=== PATIENT | male | born 1940 | race Caucasian/White ===

== ENCOUNTER 2025-02-08 12:46 | Inpatient (IN) | payer MEDICARE ==
[2025-02-08] VITALS (11 sets, daily range): BP systolic 98–146; BP diastolic 52–89; PULSE 82–139; RESP 11–26; TEMP 97.5; O2SAT 91–99
[~2025-02-08] VITALS: Ht 175.3 cm; Wt 95.7 kg
[~2025-02-08 12:46] MED LIST: ASPI-1265 PO; ATEN-169 PO; CYCL-394 PO; FLAX100010 PO; MULT-785 PO; OMEG1CAP54 PO; OMEP-84 PO; PRAV40TA65 PO; TAMS-55 PO; TRAM-528 PO; rocuronium 10mg/ml inj IV ONE
[2025-02-08 13:34] LABS: BASOPHILS % (AUTO) 0 % (0-1); EOSINOPHILS % (AUTO) 0.1 % (0-6); HEMATOCRIT 45.1 % (42.0-52.0); HEMOGLOBIN 15.1 g/dl (14.0-17.9); LYMPHOCYTES # (AUTO) 0.4 X10'3 (1.1-4.8); LYMPHOCYTES % (AUTO) 10.3 % (21-51); MEAN CORPUSCULAR HEMOGLOBIN 32.9 PG (27.0-31.0); MEAN CORPUSCULAR HGB CONC 33.5 g/dL (33.0-36.5); MEAN CORPUSCULAR VOLUME 98.1 FL (78-98); MEAN PLATELET VOLUME 7.7 FL (7.4-10.4); MONOCYTES # (AUTO) 0.7 X10'3 (0-0.9); MONOCYTES % (AUTO) 18.7 % (2-12); NEUTROPHILS # (AUTO) 2.7 X10'3 (1.8-7.7); NEUTROPHILS % (AUTO) 70.9 % (42-75); PLATELET COUNT 285 X10'3 (140-440); RED BLOOD COUNT 4.59 X10'6 (4.70-6.10); WHITE BLOOD COUNT 3.8 X10'3 (4.5-11.0)
[2025-02-08 13:39] LABS: ALANINE AMINOTRANSFERASE 29 U/L (12-78); ALBUMIN 4.3 G/DL (3.4-5.0); ALBUMIN/GLOBULIN RATIO 1.3 (1.1-1.5); ALKALINE PHOSPHATASE 63 IU/L (46-116); AMYLASE 42 U/L (25-115); ANION GAP 10 (8-16); ASPARTATE AMINO TRANSFERASE 27 U/L (10-37); BLOOD UREA NITROGEN 57 MG/DL (7-18); BUN/CREATININE RATIO 28.5 (10.0-20.0); CALCIUM 9.2 MG/DL (8.5-10.1); CHLORIDE 96 MMOL/L (99-107); GLUCOSE 187 MG/DL (70-104); LIPASE 20 U/L (16-77); POTASSIUM 4.9 MMOL/L (3.5-5.1); SODIUM 134 MMOL/L (135-145); TOTAL CARBON DIOXIDE 27.8 MMOL/L (24-32); TOTAL PROTEIN 7.5 G/DL (6.4-8.2); eCRCL 27 ML/MIN; eGFR 32 ML/MIN
[2025-02-08 14:04] LABS: TOTAL CELLS COUNTED 100
[2025-02-08 14:05] LABS: LARGE PLATELETS FEW; PLATELET ESTIMATE NORMAL
--- NOTE | 2025-02-08 14:58 | RADIOLOGY REPORT ---
CLINICAL INFORMATION: Abdominal pain. TECHNIQUE: Axial CT images of the abdomen and pelvis were obtained without IV contrast. Coronal and s agittal reformatted images were obtained, reviewed, and stored. Evaluation of the parenchymal organs is limited without IV contrast. Evaluation of the bowel and mesentery is limited without oral contras t. All CT scans at this medical facility are performed using dose modulation techniques as appropriat e to a performed exam including the following: Automated exposure control was utilized; adjustment of the MA and/or KV according to patient size; and use of iterative reconstruction technique. CTDIvol = 20.42 mGy DLP = 1149.75 mGy-cm COMPARISON: None FINDINGS: Lung bases: Lung bases are clear. Liver: Grossly unremarkable in its noncontrast enhanced appearance. No abnormal density or focal lesi on identified. Biliary: Multiple calcified gallstones in the gallbladder. Spleen: Calcified granulomas in the spleen. Pancreas: Moderately atrophic pancreas. Adrenal glands: Unremarkable. No mass. Kidneys: Bilateral renal cysts, with the largest superior pole of the left kidney measuring up to 9.8 cm in greatest dimension and at the inferior pole of the right kidney measuring up to 7.4 cm. There is a smaller indeterminate lesion of the anterior aspect of the interpolar region of the right kidney measuring up to 1.2 cm (series 2, image 67), possibly a complex cyst, although solid lesion not excl uded. There is no hydronephrosis. No renal or ureteral calculi. Aorta/Vascular: Dense atherosclerotic calcification of the abdominal aorta and its main branches. Pos tsurgical changes of the infrarenal abdominal aorta with adjacent surgical clips. No aneurysm. Dense calcification and narrowing of the renal artery origins bilaterally. Retroperitoneum: No mass or lymphadenopathy. Bowel/mesentery: Dilated fluid-filled small bowel loops with nondilated distal small bowel loops susp ected small bowel obstruction with transition point likely in the right upper abdomen. Appendix is vi sualized and appears unremarkable. Scattered colonic diverticula without adjacent inflammatory pérez es to suggest diverticulitis. Pelvic organs: Grossly unremarkable. Bladder: Unremarkable. No mass. Abdominal wall: Moderate bilateral fat containing inguinal hernias, right slightly greater than left. Partially visualized bilateral hydroceles in the scrotum. Bones: No acute fracture or suspicious intraosseous lesion. IMPRESSION: 1. Findings consistent with small-bowel obstruction as described above. 2. Scattered colonic diverticula without adjacent inflammatory changes to suggest diverticulitis. 3. Bilateral renal cysts. Smaller right renal lesion is indeterminate, possibly a complex cyst, altho ugh solid lesion not excluded. Further evaluation with renal mass protocol CT or MRI could be obtaine d. 4. Moderate bilateral fat containing inguinal hernias. 5. Cholelithiasis. 6. Additional findings as described above.
--- NOTE | 2025-02-08 15:25 | Physician Documentation ---
History of Present Illness Chief Complaint: Abdominal Pain Stated Complaint: ABD PAIN Time Seen by MD: 14:32 OK to notify your PCP?: Yes Primary Medical Doctor: Robert Source: patient Mode of Arrival: POV Exam Limitations: no limitations HPI This is an 84-year-old male who comes in complaining of abdominal pain, distention with decreased appetite and no bowel movements since it was past Saturday which was two days ago. He denies chest pain or shortness of breath. He denies abdominal surgery in the past though he has had a AAA repair which he says it was about 25 years ago as well as a quadrant with the bypass. He has been nauseated without vomiting. He denies hematemesis. Medication Reconciliation Allergies: Coded Allergies: midazolam (Verified Allergy, Unknown, GOES CRAZY, 02/08/25) morphine (Verified Allergy, Unknown, 02/08/25) tetracycline (Verified Allergy, Unknown, 02/08/25) Scheduled Aspirin (Aspirin), 81 MG PO DAILY, (Reported) Atenolol (Tenormin), 50 MG PO DAILY, (Reported) Cyclobenzaprine HCl (Cyclobenzaprine HCl), 5 MG PO BID, (Reported) Flaxseed Oil (Flaxseed Oil), 1,200 PO DAILY, (Reported) Multivitamins* (Multivitamin*), 1 EACH PO DAILY, (Reported) [place]-3 Fatty Acids/Fish Oil (Fish Oil 1,000 Mg Capsule), 1 EACH PO DAILY, (Reported) Omeprazole* (Prilosec*), 20 MG PO BID, (Reported) Pravastatin Sodium* (Pravachol*), 40 MG PO DAILY, (Reported) Tamsulosin Hcl* (Flomax*), 0.4 MG PO DAILY, (Reported) Tramadol Hcl/Acetaminophen* (Ultracet*), 2 TAB PO Q6H, (Reported) Past Medical History Past Medical History: Coronary Artery Disease, High Cholesterol, Hypertension Other Past Surgical History: Bypass Alcohol Use: Occasionally Drug Use: none Lives with: Spouse Lives In: Home Occupation: employed Physical Exam Vital Signs: Temperature: 97.5, Source: Temporal, Heart Rate: 99, Respiratory Rate: 18, BP: 114/75, Pulse Oximetry: 97, Weight: 76.850 Pulse Oximetry Reflects: adequate oxygenation General Appearance: alert, WD/WN, mild distress (The patient appears uncomfortable.) EENT: PERRL/EOMI, normal ENT inspection Respiratory Lungs are clear to auscultation all martínez. No accessory muscle use or retractions. Cardiovascular No rubs, gallops or murmurs. No peripheral edema, cyanosis or clubbing of the extremities. Gastrointestinal To inspection of the abdomen positive distention. The abdomen is tender to palpation diffusely. No rigidity rebound or guarding. He has decreased bowel sounds x4 quadrants. Neurologic: oriented x4, corporate officer II-XII nml as tested, memory intact, oriented to time, oriented to person, oriented to place Skin: normal color, warm/dry Progress Results/Orders Reviewed/noted all lab results: Yes Results/Orders Orders - RONALD KEENAN * Gastric/Insert Tube* ONCE (02/08/25 15:20) Vital Signs 02/08/25 02/08/25 13:02 15:01 Temp 97.5 Pulse 99 Resp 18 B/P (MAP) 114/75 Pulse Ox 97 Laboratory Tests Test 02/08/25 13:11 White Blood Count 3.8 L Red Blood Count 4.59 L Hemoglobin 15.1 Hematocrit 45.1 Mean Corpuscular Volume 98.1 H Mean Corpuscular Hemoglobin 32.9 H Mean Corpuscular Hemoglobin Concent 33.5 Red Cell Distribution Width 13.0 Platelet Count 285 Mean Platelet Volume 7.7 Neutrophils (%) (Auto) 70.9 Lymphocytes (%) (Auto) 10.3 L Monocytes (%) (Auto) 18.7 H Eosinophils (%) (Auto) 0.1 Basophils (%) (Auto) 0 Neutrophils # (Auto) 2.7 Lymphocytes # (Auto) 0.4 L Monocytes # (Auto) 0.7 Eosinophils # (Auto) 0.0 Basophils # (Auto) 0.0 CBC Comment Differential Total Cells Counted 100 Neutrophils % (Manual) 42.0 Band Neutrophils % 31.0 H Lymphocytes % (Manual) 7.0 L Monocytes % (Manual) 18.0 H Eosinophils % (Manual) 1.0 Metamyelocytes % 1.0 H Platelet Estimate Normal Large Platelets Few Red Blood Cell Morphology Perf Basophilic Stippling Macrocytosis 1+ Sodium Level 134 L Potassium Level 4.9 Chloride Level 96 L Carbon Dioxide Level 27.8 Anion Gap 10 Blood Urea Nitrogen 57 H Creatinine 2.00 H Estimated GFR/1.73 m2 32 BUN/Creatinine Ratio 28.5 H Glucose Level 187 H Calcium Level 9.2 Total Bilirubin 1.0 Aspartate Amino Transf (AST/SGOT) 27 Alanine Aminotransferase (ALT/SGPT) 29 Alkaline Phosphatase 63 Total Protein 7.5 Albumin 4.3 Globulin 3.2 Albumin/Globulin Ratio 1.3 Amylase Level 42 Lipase 20 Chemistry Comments EKG/XRAY/CT/US/VASC/MRI CT : Interpreted By: self CT: abdomen/pelvis Impression CT abdomen and pelvis as interpreted by me: Multiple dilated loops of bowel consistent with small-bowel obstruction. Medical Decision Making Findings The CT scan did show a small bowel obstruction with a transition point. I ordered NG tube to be placed. I also ordered IV fluids, pain and nausea medication. I will place a call out to the on-call surgeon Dr. Dorman follow up by the hospitalist for admission. Additional Comments Small-bowel obstruction. Constipation. Acute surgical abdomen. Departure Disposition: ADMITTED INPATIENT Admitted to Inpatient Unit: yes, to hospitalist, to surgeon (Lakia) Admission Level of Care: Med/Surg with Tele Impression: Primary Impression: Small bowel obstruction Condition: Stable Referrals: NO PRIMARY CARE PROVIDER (PCP) Signature Scribe Signature: No scribe Attestation: The note accurately reflects work and decisions made by me.Ronald HENSLEY 02/08/25 16:02 RONALD KEENAN Feb 08, 2025 15:25
[2025-02-08] MEDS ORDERED: magnesium Cl slow-release 64mg tablet PO PRN (16:00)
[2025-02-08] MEDS ORDERED: potassium Cl 20 mEq SR tablet PO PRN ×2 (16:00)
[2025-02-08] MEDS ORDERED: magnesium sulf-water 2g/50mL 50 ML IV PRN (16:00)
[2025-02-08] MEDS ORDERED: ondansetron/PF 4mg/2ml inj IV PRN ×4 (16:00→21:05)
[2025-02-08] MEDS ORDERED: acetaminophen 325mg tablet PO PRN (16:00)
[2025-02-08] MEDS ORDERED: potassium Cl 40MEQ/1/2NS 520ml 520 ML IV PRN (16:00)
[2025-02-08] MEDS: ondansetron/PF 4mg/2ml inj IV ONE (16:05)
[2025-02-08] MEDS: HYDROmorphone 1 mg/ml syringe IV ONE (16:07)
[2025-02-08] MEDS: normal saline 1000ml 1,000 ML IV ONE (16:07)
--- NOTE | 2025-02-08 16:08 | RADIOLOGY REPORT ---
EXAM: DI ABDOMEN,SINGLE VIEW(KUB) HISTORY: NG Tube placement COMPARISON: None TECHNIQUE: Supine view of the abdomen FINDINGS: Nonobstructive bowel gas pattern noted. There is no evidence for pneumoperitoneum. No abnormal calcif ications noted. Enteric tube extending into the proximal stomach. Postoperative changes to the chest . IMPRESSION Normal positioning of the enteric tube.
--- NOTE | 2025-02-08 16:52 | HISTORY AND PHYSICAL-Residence ---
History & Physical Providers to CC Resident Creating Document: BARTOLO COPPOLA, RES ~ History of Present Illness Primary Medical Doctor: Dr. Shailesh Crespo. [facility] Reason for Admit\Complaint: Abdominal pain History of Present Illness Dr. Shailesh Crespo. [facility] Manager Solar: Dr. Singleton. Renewable Energy Broker: Dr. Leigh 84-year-old male patient with past medical history of hypertension, diabetes mellitus, dyslipidemia, hypothyroidism came to the hospital with chief complaint of abdominal pain. The patient mentioned that he started experiencing abdominal pain on Saturday morning approximately at 11:30 a.m. a.m. he describes the pain as a throbbing type, 8/10 in intensity, localized at the level of the epigastrium with some radiation to the lower abdomen. After his pain started he mentioned that he lost his appetite. On Saturday he experienced two episodes of vomiting, described as a black liquid, the patient endorses that he had not been eating or drinking anything because of the pain. His last bowel movement was on Saturday before the pain started, proximally at 7:00 a.m. Today he experienced another two episodes of vomiting, sweating and intensity of the pain increased being scaled as an 10/10 in intensity reason for which he decided to come to the hospital. The patient normally walks by himself at home, he does not use oxygen, independent with his daily activities. The patient currently denies chest pain, shortness of breath, palpitations, urinary symptoms. Allergies: Coded Allergies: morphine (Verified Allergy, Unknown, 02/13/25) PT TOLERATED HYDROMORPHONE 02/2025 tetracycline (Verified Allergy, Unknown, 02/08/25) Home Medications Home Medications Active Reported Tenormin* (Atenolol) 50 Mg Tablet 50 Mg PO DAILY Aspirin* (Aspirin) 81 Mg Tab.chew 81 Mg PO DAILY Ultracet* (Tramadol/Acetaminophen) 1 Each Tablet 2 Tab PO Q6H Flexeril* (Cyclobenzaprine HCl) 10 Mg Tablet 5 Mg PO BID Flomax* (Tamsulosin HCl) 0.4 Mg Cap.sr.24h 0.4 Mg PO DAILY Prilosec* (Omeprazole) 20 Mg Capsule.dr 20 Mg PO BID Multivitamin* (Multivitamins) 1 Each Tablet 1 Each PO DAILY Flaxseed Oil 1,000 Mg Capsule 1,200 PO DAILY Fish Oil 1,000 Mg Capsule ([place]-3 Fatty Acids/Fish Oil) 1 Each Capsule 1 Each PO DAILY Pravachol* (Pravastatin Sodium) 40 Mg Tablet 40 Mg PO DAILY Past Medical History Past Medical History Hypertension. Diabetes mellitus. Dyslipidemia. Hypothyroidism. Past Surgical History Surgical History Comment AAA surgery in 2002. The patient had a GI bleeding in 2005, as per patient due to medication use. Four way bypass surgery in 2002 two months after AAA surgery. Past Social History Smoking: Quit greater than 1 year (Quit smoking in 2002. He used to smoke one pack a day for at least 40 years.) Alcohol Use: Abuse (He endorses to drink one oz of trisha with Coke every day for 45 years.) Drug Use: None Lives with: Spouse Lives In: Home Occupation: employed (He works in [employer]) ROS All Other Systems: Reviewed and Negative Exam Vitals: Vital Signs Date Time Temp Pulse Resp B/P (MAP) Pulse Ox O2 Delivery O2 Flow Rate FiO2 02/08/25 16:07 16 02/08/25 15:01 02/08/25 13:02 97.5 99 97 Physical exam: General: Well alert, well oriented, not confused, not agitated, not in acute distress, well cooperated during the physical. HEENT: Conjunctive are pink, sclerae clear, no icterus, pupil is equal in both sides, reactive to light, no ear discharge, no pharyngeal erythema or an edema. NG tube on place, draining black fluid. Neck: Supple, no JVD, no lymphadenopathy and thyromegaly. Chest: Equal air entry on both lungs, no additional sounds no rhonchi no wheezing at the moment. Presence of scar in the midline of the chest and abdomen from previous surgery. Cardiovascular: S1-S2 regular sinus rhythm and, regular rate, presence of systolic murmur best heard in the 2nd right intercostal space. Abdomen: Distended, tenderness to palpation in the left lower abdomen, presence of hyperactive bowel sounds in the right side of the abdomen, absent bowel sounds in the left side of the abdomen, presence of scar in the midline of the chest and abdomen from previous surgery. Ventral abdominal hernia 3 x 3 cm, easily reducible. Extremities: No obvious deformities, no pitting edema bilaterally, capillary refill intact, peripheral pulsations are intact on both sides Central Nervous System: No focal neurological deficits, no motor or sensory weakness in all 4 extremities, could move all 4 extremities, 2+ deep tendon reflexes, negative Babinski. Musculoskeletal: No joint swelling, deformities, inflammations, and no scoliosis and back tenderness Skin: Warm and dry. Diagnostic Data Last Recorded Lab Results: 02/08/25 1311 02/08/25 1311 Advance Care Planning Advanced Care plannin - 30 Minutes (I spent a total of 17 minutes on reviewing various resuscitative measures/ACP with the patient at the time of admission. The patient has decided on a full code status.) Additional Plan Assessment and plan: 84-year-old male patient came to the hospital with chief complaint of abdominal pain. Abdominal pain: Small-bowel obstruction: The patient came to the hospital with chief complaint of abdominal pain, throbbing type, 8/10 in intensity radiation from epigastrium to lower abdomen. On physical exam distended abdomen is evidenced, high-pitched bowel sounds are noticed in the right side of the abdomen. Absent bowel sounds in the left side. Tenderness in the left lower abdomen. Abdominal x-ray: Normal positioning of the enteric tube. CT abdominal scan: Findings consistent with small-bowel obstruction as described above. Scattered colonic diverticula without adjacent inflammatory changes to suggest diverticulitis. Bilateral renal cysts. Smaller right renal lesion is indeterminate, possibly a complex cyst, although solid lesion not excluded. Further evaluation with renal mass protocol CT or MRI could be obtained. Moderate bilateral fat containing inguinal hernias. Cholelithiasis. The patient was placed on NG tube. Follow-up lactic acid. General surgeon, Dr. Hernandez was consulted, who is planning to perform surgery today. NS at 80 mL/hour. NPO. Dilaudid p.r.n. for pain control. Acute kidney injury on CKD likely secondary to renal tubular stasis: Unknown baseline creatinine. Creatinine 2.00, BUN/creatinine ratio 28.5. Follow-up urine lytes. NS at 80 mL/hour. Alcohol use disorder: The patient admits drinking 1 oz of trisha with coke everyday for at least 45 years. Alcohol withdrawal protocol in place. Folic acid 1 mg IV daily. Thiamine 200 mg IV t.i.d. Diazepam 5 mg IV q.4h as needed. Hypertension: Current blood pressure 114/75. We will continue lisinopril and atenolol after med reconciliation. Hyperglycemia: Diabetes mellitus: Glucose levels of 187. Follow-up hemoglobin A1c. Hypothyroidism: Follow-up TSH. We will continue his levothyroxine 25 mcg daily after med reconciliation. Dyslipidemia: Follow-up lipid panel. Code status: Full code DVT prophylaxis: SCDs Analgesia/sedation: Dilaudid Line/tube: PIV, NG tube. GI prophylaxis: Protonix IV. Nutrition: NPO PT: Yes Prognosis: Guarded Disposition: The patient will be admitted to ortho floor with telemetry. Plan for surgery. Bartolo Katz Internal Medicine Resident [facility] Date of Service: Feb 08, 2025 Billing Provider: JOHN CARDOSO MD Common Visit Codes: 71830-[id number] INP/OBS CARE (HIGH) Secondary Visit Codes: [id number] CARE PLAN 30 MINUTES BARTOLO COPPLOA, RES Feb 08, 2025 16:52 JOHN CARDOSO MD February 15, 2025 14:29
[2025-02-08] MEDS: normal saline 1000ml 1,000 ML IV SCH (16:57)
--- NOTE | 2025-02-08 17:00 | ELECTROCARDIOGRAPH REPORT ---
[facility] Test Date: 2025-02-08 Test Time: 16:57:33 Pat Name: VALERI REGALADO Department: EMERGENCY ROOM Room: PACU 5 Gender: M Grounds Caretaker: LUCRECIA : 1940 Requested By: RAFAL ALFARO Order Number: [id number] Reading MD: Dr. Nico Simon Measurements Intervals [place] Rate: 98 P: 57 DE: 145 QRS: 33 QRSD: 86 T: 62 QT: 361 QTc: 461 Interpretive Statements Sinus tachycardia Atrial premature complexes Minimal ST depression, inferior leads Electronically Signed On 02-08-2025 19:01:[address] Nico Simon Please click the below link to view image of tracing.
[2025-02-08] MEDS: ceFOXitin sod/dextrose 2g/50ml 50 ML IV ONE (17:15)
--- NOTE | 2025-02-08 17:15 | PROGRESS NOTE ---
Progress Note ID Providers to CC ~ Progress Note Progress Note: pt seen and examined-ct reviewed-findings consistent with sbo with peritonitis- pt needs ex lap-discussed procedure including risks/benefits/alternatives RAFAL ALFARO MD Feb 08, 2025 17:15
[2025-02-08] MEDS ORDERED: labetalol 20mg/4ml (5mg/ml) syringe IV PRN (17:20)
[2025-02-08] MEDS ORDERED: HYDROmorphone/PF 0.2 MG/ML SYRINGE IV PRN ×2 (17:20)
[2025-02-08] MEDS ORDERED: fentaNYL/PF 50MCG/1 ML 2ML syringe IV PRN (17:20)
[2025-02-08] MEDS ORDERED: hydrALAZINE 20mg/ml inj. IV PRN (17:20)
[2025-02-08] MEDS: ringers solution, lacted 1,000 ML IV SCH ×2 (17:20→20:05)
[2025-02-08] MEDS: folic acid 1mg/0.2ml inj IV SCH (17:25)
[2025-02-08] MEDS ORDERED: diazepam inj 5 MG/ML inj. IV PRN (17:25)
[2025-02-08] MEDS ORDERED: dexamethasone sod phosphate 4mg/ml inj. ONE (17:49)
[2025-02-08] MEDS ORDERED: LIDOcaine 2% (20mg/ml) 5ml vial ONE (17:49)
[2025-02-08] MEDS ORDERED: ondansetron/PF 4mg/2ml inj ONE (17:49)
[2025-02-08] MEDS ORDERED: propofol inj 20 ML IV ONE (17:49)
[2025-02-08] MEDS ORDERED: fentaNYL /PF 50mcg/ml 5ml ampule ONE (17:49)
[2025-02-08] MEDS ORDERED: rocuronium 10mg/ml inj IV ONE ×2 (17:50→19:33)
[2025-02-08] MEDS ORDERED: desflurane 240ml liquid inh. IH ONE (17:53)
--- NOTE | 2025-02-08 18:08 | CARDIOLOGY REPORT ---
APPROVED REPORT EXAM: Comprehensive 2D, Doppler, and color-flow Echocardiogram. Patient Location: ER FT A Blood Pressure: 114/75 mmHg Heart Rate: 97 bpm Rhythm: SINUS w/FREQUENT PVCs Indications PRE-OP SMALL BOWEL OBSTRUCTION CAD, CABG X 4 2004 AAA REPAIR 2002 HYPERTENSION DIABETES MELLITUS Senior Manager Quality Assurance: Claudette Thompson MD Previous echo: none available, after hours 2D Dimensions LA Diam5.9 cm IVSd 1.2 (0.7-1.1cm) LVDd 3.6 cm PWd 1.3 (0.7-1.1cm) IVSs 1.7 (0.8-1.2cm) LVDs 2.5 (2.5-4.0cm) PWs 1.3 (0.8-1.2cm) LVOT Diameter 2.01 (1.8-2.4cm) LVEF(%) 56.9 (>50%) Ao Asc Diam.3.74 cm FS (%) 29.2 % SV 30.9 ml CO 3.0 L/min M-Mode Dimensions Left Atrium(MM) 4.12 (2.5-4.0cm) Aortic Root 3.42 (2.2-3.7cm) Aortic Cusp Exc 1.98 (1.5-2.0cm) Biplane 2D LA Volumes LA ESV Index 18.64 mL/m2 Aortic Valve AoV Peak Kunal. 180.6 cm/s AoV VTI 30.5 cm AO Peak GR. 13.0 mmHg AO Mean GR. 7 mmHg LVOT VTI 18.48 cm LVOT Peak Kunal. 106.5 cm/s JUDITH(VTI)/BSA 1.93 cm2/m2 JUDITH (VTI) 1.93 cm2 Mitral Valve MV E Velocity 63.8 cm/s MV Peak Gr. 2 mmHg MV DECEL TIME 228 ms MV A Velocity 117.0 cm/s MV PHT 42 ms E/A Ratio 0.5 MVA (PHT) 5.24 cm2 MV VMax74.9 cm/s TDI Medial E' P. V 8.43 cm/s E/Medial E' 7.6 Pulmonary Vein S1 Velocity 68.4 cm/s D2 Velocity 32.6 cm/s PVa Dsffiivn77.9 cm/s PVa Vhxwider72 msec LEFT VENTRICLE Normal LV size and function. Mild concentric hypertrophy. OverallLVEF is 55-60%. RIGHT VENTRICLE RV size and function appear normal. ATRIA Left atrium is mildly dilated. AORTIC VALVE Trileaflet AV appears mildly sclerotic without stenosis. Trace insufficiency. MITRAL VALVE Mild MV annular calcification without stenosis. Trace regurgitation. TRICUSPID VALVE TV appears structurally normal with trace regurgitation. PULMONIC VALVE Normal PV without stenosis, physiologic insufficiency. GREAT VESSELS Aortic root is normal in size. The ascending aorta is upper limit normal in size. PERICARDIUM Normal pericardium. No effusion. Left pleural effusion is present. Other Information Study Quality: Adequate, no subcostals due to ?gas, hard belly. Conclusion OverallLVEF is 55-60%. Normal LV size and function. Mild concentric hypertrophy. RV size and function appear normal. Trileaflet AV appears mildly sclerotic without stenosis. Trace insufficiency. Mild MV annular calcification without stenosis. Trace regurgitation. TV appears structurally normal with trace regurgitation. Normal PV without stenosis, physiologic insufficiency. Normal pericardium. No effusion. Left pleural effusion is present.
[2025-02-08] MEDS ORDERED: albumin (Human) 5% 250ml 250 ML IV ONE (18:24)
[2025-02-08 18:28] LABS: OSMOLALITY 305 MOSM/K (280-300)
[2025-02-08 18:31] LABS: HEMOGLOBIN A1C 6.1 % (4.5-6.2)
[2025-02-08 18:39] LABS: CHOL/HDL RATIO 3.4 (0.00-4.99); CHOLESTEROL 188 MG/DL (0-200); HDL CHOLESTEROL 56 MG/DL (35-60); LDL CHOLESTEROL 105 MG/DL (50-100); TRIGLYCERIDES 168 MG/DL (20-135)
[2025-02-08 18:42] LABS: ETHANOL < 10 MG/DL (<10)
[2025-02-08] MEDS ORDERED: sugammadex 200mg/2ml injection IV ONE (19:06)
[2025-02-08] MEDS: vancomycin/NS 1 GM ADD-VANTAGE 250 ML X 1 DOSE IV ONE (19:20)
[2025-02-08] MEDS: piperacillin/tazobactam inj. 3.375 GM in NS 50ml IV ONE (19:25)
--- NOTE | 2025-02-08 20:00 | PROGRESS NOTE ---
Anesthesia - Line Placement Line Placement CVP: Internal Jugular (Right) Separate "Sticks": Ultrasound Guidance, Vasc Structure Identified, Patency Confirmed, Entry Observed by [place]. Sterile Protocol or Technique: Sterile Seldinger tech, Full Sterile Protocol Prep: Chloraprep Complications None XIOMARA AGUILERA MD Feb 08, 2025 20:00
--- NOTE | 2025-02-08 21:01 | OPERATIVE REPORT ---
Operative Report Providers to CC ~ Date of Procedure: Feb 08, 2025 Pre-Operative Diagnosis: sbo with peritonitis Post-Operative Diagnosis SAME as PRE-Op Procedure Performed ex lpa/mica/small bowel resection/closure enterotomy/appy Surgeon: reza Kinney none Anesthesiologist: Ha Tang Type of Anesthesia: General Findings: extensive adhesions/complete sbo Estimated Blood Loss: 250 ml Specimen Removed: small bowel/appy RAFAL ALFARO MD Feb 08, 2025 21:01
[2025-02-08] MEDS ORDERED: naloxone 0.4 mg/ml inj IV PRN (21:05)
[2025-02-08] MEDS: diazepam inj 5 MG/ML inj. IV ONE (21:45)
[2025-02-08 21:59] LABS: ABG BASE EXCESS -7.9 mmol/L (-2.0-3.0); ABG HCO3 17.9 mmol/L (21.0-28.0); ABG OXYGEN SATURATION 94.5 % (94.0-98.0); ABG PCO2 (T) 36.6 mmHg (35.0-48.0); ABG PH (T) 7.304 (7.350-7.450); ABG PO2 (T) 76.8 mmHg (83.0-108.0); ALLEN'S TEST Modified; FCOHb 0.6 % (0.5-1.5); FHHb 5.5 % (0.0-5.0); FLOW 10 L/min; FMetHb 0.2 % (0.0-1.5); FO2Hb 93.7 % (94.0-98.0); MODE Simple Mask; PATIENT TEMPERATURE 36.1; TOTAL HEMOGLOBIN 13.3 G/dl (13.5-17.5)
--- NOTE | 2025-02-08 22:01 | RADIOLOGY REPORT ---
CHEST RADIOGRAPH Indication: POST OP line placement Technique: Single frontal view of the chest was obtained COMPARISON: None FINDINGS: Lines and Tubes: Right IJ CVC noted with its tip projecting over SVC. NG tube extends below the diaph ragm the tip of which is not visualized on this study but is at least in the gastric body. Lungs: No abnormality demonstrated. Pleura: No pleural effusion. No pneumothorax. Cardiomediastinal contours: Unremarkable Evidence of sternotomy and CABG. IMPRESSION: No abnormality demonstrated.
[2025-02-08] MEDS: K and/or MAG REPLACEMENT MC SCH (22:05)
[2025-02-08] MEDS: fentaNYL/PF 50MCG/1 ML 2ML syringe IV PRN (22:15)
[2025-02-08] MEDS: potassium CL 20mEq in D5-1/2NS 1,000 ML IV SCH (22:38)
[2025-02-08] MEDS: HYDROmorphone/PF 0.2 MG/ML SYRINGE IV PRN (22:46)
[2025-02-08] MEDS: thiamine 100mg/ml 2ml inj. IV SCH (22:50)
[2025-02-08] MEDS: haloperidol lactate 5mg/ml inj IM PRN (23:08)
[2025-02-08] MEDS: HYDROmorphone inj. 0.5 MG/0.5 ML DISP.SYRIN IV PRN (23:25)
[2025-02-09] VITALS (31 sets, daily range): BP systolic 65–118; BP diastolic 43–64; PULSE 99–134; RESP 10–30; O2SAT 91–100
[2025-02-09 00:37] LABS: HEMATOCRIT 38.5 % (42.0-52.0); HEMOGLOBIN 12.9 g/dl (14.0-17.9); MEAN CORPUSCULAR HEMOGLOBIN 33.1 PG (27.0-31.0); MEAN CORPUSCULAR HGB CONC 33.4 g/dL (33.0-36.5); MEAN CORPUSCULAR VOLUME 99.2 FL (78-98); MEAN PLATELET VOLUME 7.5 FL (7.4-10.4); PLATELET COUNT 206 X10'3 (140-440); RED BLOOD COUNT 3.89 X10'6 (4.70-6.10); RED CELL DISTRIBUTION WIDTH 13.1 % (11.5-14.5); WHITE BLOOD COUNT 2.1 X10'3 (4.5-11.0)
[2025-02-09 00:48] LABS: INR 1.2 INR; PROTHROMBIN TIME 12.5 SECONDS (9.0-12.0)
[2025-02-09 00:51] LABS: ALANINE AMINOTRANSFERASE 16 U/L (12-78); ALBUMIN 2.3 G/DL (3.4-5.0); ALBUMIN/GLOBULIN RATIO 1.2 (1.1-1.5); ALKALINE PHOSPHATASE 46 IU/L (46-116); ANION GAP 13 (8-16); ASPARTATE AMINO TRANSFERASE 20 U/L (10-37); BILIRUBIN,TOTAL 0.9 MG/DL (0.1-1.0); BLOOD UREA NITROGEN 54 MG/DL (7-18); BUN/CREATININE RATIO 24.4 (10.0-20.0); CALCIUM 7.1 MG/DL (8.5-10.1); CHLORIDE 104 MMOL/L (99-107); CREATININE 2.21 MG/DL (0.60-1.10); GLUCOSE 271 MG/DL (70-104); MAGNESIUM 1.4 MG/DL (1.5-2.4); PHOSPHORUS 4.2 MG/DL (2.3-4.5); POTASSIUM 4.2 MMOL/L (3.5-5.1); SODIUM 135 MMOL/L (135-145); TOTAL CARBON DIOXIDE 18.5 MMOL/L (24-32); TOTAL PROTEIN 4.3 G/DL (6.4-8.2); eCRCL 24 ML/MIN; eGFR 28 ML/MIN
[2025-02-09 01:05] LABS: TOTAL CELLS COUNTED 100
[2025-02-09 01:07] LABS: PLATELET ESTIMATE NORMAL
[2025-02-09] MEDS: albumin (Human) 5% 250ml 250 ML IV ONE ×8 (02:33→06:42)
[2025-02-09] MEDS: HYDROmorphone inj. 0.5 MG/0.5 ML DISP.SYRIN IV PRN (03:10)
[2025-02-09] MEDS: piperacillin/tazo 3.375gm/50ml 50 ML IV SCH (03:42)
--- NOTE | 2025-02-09 03:43 | OPERATIVE REPORT ---
DATE OF SURGERY: 02/08/2025 DICTATING PHYSICIAN: Ion Hernandez MD PREOPERATIVE DIAGNOSIS: Small bowel obstruction with peritonitis. POSTOPERATIVE DIAGNOSIS: Small bowel obstruction with peritonitis. PROCEDURES: * Exploratory laparotomy. * Lysis of adhesions. * Polypoid resection. * Closure of enterotomy. * Appendectomy. SURGEON: Ion Hernandez MD MERCHANDISE PRESENTATION ASSOCIATE: None. ANESTHESIA: General/Dr. Tang. DRAINS: Markus x 1. INDICATIONS FOR OPERATION: An 84-year-old male with previous open abdominal aortic aneurysm repair and history of abdominal pain for 2 days, which has progressed. CAT scan revealed evidence of small bowel obstruction. The patient had peritonitis on exam, taken to surgery for laparotomy. INTRAOPERATIVE FINDINGS: The patient had extensive adhesions with multiple dilated loops of small bowel. The adhesions were the source of the obstruction. DESCRIPTION OF PROCEDURE: The patient was placed supine on the operating table. After induction of general anesthesia and placement of endotracheal tube, the abdomen was prepped and draped. Abdomen entered with midline incision. The patient had extensive adhesions, subsequently taken down from the ileocecal valve, to be determined ____. In the course of mobilization of the small bowel through the dense adhesions, enterotomies were made. One enterotomy was closed with a TA-30 given the small size. The second enterotomy required a small bowel resection with isoperistaltic anastomosis and enterotomy was closed with TA-90. Appendix was removed. There were extensive adhesions present and need for treatment with subsequent appendectomy. After mobilization of the bowel and closure of enterotomies, the abdomen was copiously irrigated with large amount of antibiotic containing solution. A #19 Markus drain was placed through a separate stab incision, directed to the pelvis and right gutter. The lap count was noted to be correct. Hemostasis was obtained. The rectal fascia was closed with running sutures of looped PDS. Skin was closed with clips. Pascual placed, dressing applied. The patient was transferred to the ICU in critical condition. Ion Hernandez MD TID: [id number] RECEIPT: [id number] SADA/FLORES/LOUIE
--- NOTE | 2025-02-09 04:25 | CONSULTATION ---
DATE OF CONSULTATION: 02/08/2025 DICTATING PHYSICIAN: Ion Hernandez MD REASON FOR CONSULTATION: Evaluation of small bowel obstruction. HISTORY OF PRESENT ILLNESS: The patient is an 84-year-old male with repair of an aortic aneurysm approximately 20 years ago via an open approach, developed severe abdominal pain two days ago, pain persisted. The patient went to the ER for evaluation. CAT scan revealed evidence of some small bowel obstruction. The patient was found to have a profound bandemia. Surgical evaluation is now requested. On further questioning, the patient denies any additional abdominal surgery besides his aortic aneurysm repair. He has a history of coronary artery disease. No history of peripheral vascular disease per his report. PAST MEDICAL HISTORY: Significant for hypertension, coronary artery disease, and hyperlipidemia. PAST SURGICAL HISTORY: CABG, GI bleed procedure, aortic aneurysm repair . HOME MEDICATIONS: Aspirin, atenolol, cyclobenzaprine, Prilosec, pravastatin, tamsulosin, tramadol. ALLERGIES: MORPHINE, MIDAZOLAM, TETRACYCLINE. SOCIAL HISTORY: Occasional alcohol use. REVIEW OF SYSTEMS: See H and P. PHYSICAL EXAMINATION: GENERAL: This is a well-nourished, elderly male, in minimal distress. VITAL SIGNS: Unremarkable. HEART: Regular rhythm. LUNGS: Clear to auscultation. ABDOMEN: Distended with some diffuse tenderness consistent with peritonitis. EXTREMITIES: Unremarkable. NEUROLOGIC: Nonfocal. LABORATORY DATA: WBC of 3.8, hematocrit is 45, platelet count 285. There are 31 bands in the differential. Chemistries revealed BUN and creatinine of 7 and 2, CO2 is 27. LFTs unremarkable. IMAGING STUDIES: CT abdomen reveals a small bowel obstruction , decompressed small bowel distally, fat-containing inguinal hernias, but no bowel present. IMPRESSION: * Small bowel obstruction with peritonitis and profound bandemia. * Status post aortic aneurysm repair. * Status post CABG. * Hypertension. RECOMMENDATIONS: * Hydrate. * Check echocardiogram. * Laparotomy. Ion Hernandez MD TID: [id number] RECEIPT: [id number] KB/ROWENA/AMA
[2025-02-09] MEDS: magnesium sulf-water 4G/100mL 100 ML IV PRN (06:52)
[2025-02-09] MEDS: NORepinephrine 8mg/ 250ml NS 250 ML IV SCH (07:30)
[2025-02-09] MEDS: vasopressin inj. 40 UNIT in normal saline 50ml IV soln 38 ML IV SCH (07:33)
[2025-02-09] MEDS: NORepinephrine 8mg/ 250ml NS 250 ML IV ONE (07:37)
--- NOTE | 2025-02-09 09:40 | RADIOLOGY REPORT ---
CHEST RADIOGRAPH Indication: sob Technique: Single frontal view of the chest was obtained Comparison: DI CHEST,SINGLE VIEW on DOS: 02/08/25 FINDINGS: Lines and Tubes: Nasogastric tube tube tip in the stomach. Right central venous catheter tip in the SVC. Lungs: No focal consolidation. Pleura: No effusion. No pneumothorax. Cardiomediastinal contours: Cardiomegaly. Bones: Median sternotomy. IMPRESSION: Cardiomegaly with mild CHF.
[2025-02-09] MEDS: SODIUM BICARBONATE 150MEQ IN D5W 1,000 ML IV SCH (11:17)
[2025-02-09] MEDS ORDERED: PRAV40TA3 PO (11:33)
[2025-02-09] MEDS ORDERED: PANT40TA54 PO (11:33)
[2025-02-09] MEDS ORDERED: METF-1203 PO (11:33)
[2025-02-09] MEDS ORDERED: LEVO25TA7 PO (11:33)
[2025-02-09] MEDS ORDERED: ATEN50TA8 PO (11:33)
[2025-02-09] MEDS ORDERED: LISI2.5T14 PO (11:33)
[2025-02-09] MEDS ORDERED: CYCL-920 PO (11:34)
[2025-02-09] MEDS ORDERED: magnesium sulf-water 4G/100mL 100 ML IV PRN (11:55)
[2025-02-09] MEDS ORDERED: Duosol 4k/NO Calcium 5,000 ML HE SCH (11:55)
[2025-02-09] MEDS ORDERED: potassium Cl 40MEQ/270ML bag 270 ML IV PRN (11:55)
[2025-02-09] MEDS ORDERED: calcium chloride inj. 1,000 MG in normal saline 100ml IV soln 100 ML IV PRN (11:55)
[2025-02-09] MEDS: BICARB DIALYSIS 4K/3 Ca2+sol 5,000 ML HE SCH (11:55)
[2025-02-09] MEDS: insulin regular, human U-100 10ml vial - multi-dose SQ SCH (13:47)
--- NOTE | 2025-02-09 16:10 | PROGRESS NOTE ---
Progress Note Dictate Providers to CC ~ Progress Note: Referring Physician: General surgeon and hospitalist Reason for Consultation: evaluate REMEDIOS Chief Complaint: Abdominal pain History of Present Illness: Admitted to the hospital for abdominal pain, found to have adhesions and small bowel obstruction, underwent laparotomy yesterday, treating intra-abdominal infection and peritonitis, partial small bowel resection was performed, now worsening REMEDIOS with oliguria over the past 24 hours, we have been asked to evaluate REMEDIOS and make specific recommendations for renal replacement therapy if needed. Review of Systems: Unable to assess secondary to critical illness Antibiotic Ordered?: Yes Objective Vitals Vital Signs Date Time Temp Pulse Resp B/P (MAP) Pulse Ox O2 Delivery O2 Flow Rate FiO2 02/09/25 15:41 111/56 02/09/25 15:00 99.9 103 19 93 Nasal Cannula 5.0 General: Ill appearing, appears comfortable, Neck: Supple, without JVD Heart: Regular rate and rhythm, no murmur Lungs: Course lung sounds bilateral Abdomen: Bowel sounds absent, no tenderness, organomegaly, masses, or hernia Extremities: No cyanosis, 1+ edema, peripheral pulses intact Neurologic: Sensation to touch, normal. DTRs normal moves all extremities spontaneously. Lab Results: 02/09/25 0015 02/09/25 0015 Coagulation Studies Laboratory Tests Test 02/09/25 00:15 Prothrombin Time 12.5 SECONDS (9.0-12.0) H INR International Normalized Ratio 1.2 INR Coagulation Comments Other Results I & O 02/09/25 07:00 Intake Total 0 ml Output Total 305 ml Balance -305 ml Intake Oral 0 ml Output Urine Total 250 ml Drainage Total 55 ml Problem\Assessment\Plan Problems/Diagnosis: (1) REMEDIOS (acute kidney injury) Assessment & Plan: Acute Kidney Injury (REMEDIOS): He demonstrates REMEDIOS, likely multifactorial due to perioperative factors, hypovolemia, sepsis, and vasopressor use. Creatinine has risen from 2.0 to 2.21 mg/dL, with significant oliguria (220 mL urine output in 24 hours). Elevated lactic acid (2.3 mmol/L) likely tissue hypoperfusion. Fluid Management: Carefully balance IV fluid administration to optimize renal perfusion while avoiding fluid overload, especially given the use of vasopressors. Continue isotonic fluids (e.g., 0.9% NaCl) with frequent reassessment of volume status, hemodynamics, and urine output. Renal Monitoring and Management: Follow KDIGO guidelines for REMEDIOS management. Monitor renal function (BUN, creatinine) and electrolytes closely. Evaluate for potential initiation of renal replacement therapy (UPHOLSTERY RESTORER) daily, start if there is worsening renal function, refractory metabolic acidosis, hyperkalemia, or fluid overload. (2) Leukopenia Assessment & Plan: Leukopenia with Bandemia: WBC count of 2.1 with 31% neutrophil bands indicates a stress response, possible sepsis, or bone marrow suppression. Hematological Monitoring: Repeat CBC to monitor WBC trends and assess ongoing infection or bone marrow response. Consider additional evaluation for causes of leukopenia if no improvement is noted. (3) Hemodynamic instability Assessment & Plan: Hemodynamic Instability: He is is on vasopressors (vasopressin, norepinephrine), indicating hemodynamic instability, likely contributing to renal hypoperfusion and further complicating renal recovery. Vasopressor Management: Work with the critical care team to optimize vasopressor support, aiming to improve mean arterial pressure (MAP) and renal perfusion. Adjust vasopressor dosing as necessary based on hemodynamic monitoring and fluid status. (4) Infection Assessment & Plan: Infection and Sepsis Management: Continue current antibiotic regimen with Zosyn, ensuring appropriate coverage for potential intra-abdominal infections. Monitor for clinical improvement and adjust antibiotics based on culture results and sensitivity patterns. JASON MILLIGAN III DO Feb 09, 2025 16:10
[2025-02-09] MEDS: acetaminophen 1,000mg/100ml IV 100 ML IV PRN (16:47)
--- NOTE | 2025-02-09 17:32 | PROGRESS NOTE- Residence ---
Progress Note - Resident Providers to CC Resident Creating Document: BARTOLO COPPOLA, REEMA ~ Antibiotic Timeout Antibiotic Ordered?: Yes Subjective The patient has been evaluated at the bedside. The patient is currently on nasal cannula 5 L. Somnolent, reports mild pain at the level of the abdomen. Objective Vital Signs Date Time Temp Pulse Resp B/P (MAP) Pulse Ox O2 Delivery O2 Flow Rate FiO2 02/09/25 16:00 100.6 106 10 102/53 (69) 93 Nasal Cannula 5.0 Physical exam: General: The patient recently underwent surgery, currently somnolent. On 5 L of oxygen nasal cannula. HEENT: Conjunctive are pink, sclerae clear, no icterus, pupil is equal in both sides, reactive to light, no ear discharge, no pharyngeal erythema or an edema. NG tube on place, draining black fluid. Neck: Supple, no JVD, no lymphadenopathy and thyromegaly. Chest: Equal air entry on both lungs, no additional sounds no rhonchi no wheezing at the moment. Presence of scar in the midline of the chest and abdomen from previous surgery. Cardiovascular: S1-S2 regular sinus rhythm and, regular rate, presence of systolic murmur best heard in the 2nd right intercostal space. Abdomen: Distended, presence of clean dressing and drain in the level of the lower abdomen. Extremities: No obvious deformities, no pitting edema bilaterally, capillary refill intact, peripheral pulsations are intact on both sides, currently with Bowen catheter. Central Nervous System: No focal neurological deficits, no motor or sensory weakness in all 4 extremities, could move all 4 extremities, 2+ deep tendon reflexes, negative Babinski. Musculoskeletal: No joint swelling, deformities, inflammations, and no scoliosis and back tenderness Skin: Warm and dry. Result Diagram: 02/09/25 0015 02/09/25 0015 Coagulation Studies Laboratory Tests Test 02/09/25 00:15 Prothrombin Time 12.5 SECONDS (9.0-12.0) H INR International Normalized Ratio 1.2 INR Coagulation Comments Assessment Assessment 84-year-old male patient came to the hospital with chief complaint of abdominal pain. Plan Plan Abdominal pain: Septic shock likely secondary to small-bowel obstruction with peritonitis: POA: S/p exploratory laparotomy, lysis of adhesions, appendectomy, polypoid resection, closure of enterotomy: POD: 0 The patient came to the hospital with chief complaint of abdominal pain, throbbing type, 8/10 in intensity radiation from epigastrium to lower abdomen. On physical exam distended abdomen is evidenced, high-pitched bowel sounds are noticed in the right side of the abdomen. Absent bowel sounds in the left side. Tenderness in the left lower abdomen. Abdominal x-ray: Normal positioning of the enteric tube. CT abdominal scan: Findings consistent with small-bowel obstruction as described above. Scattered colonic diverticula without adjacent inflammatory changes to suggest diverticulitis. Bilateral renal cysts. Smaller right renal lesion is indeterminate, possibly a complex cyst, although solid lesion not excluded. Further evaluation with renal mass protocol CT or MRI could be obtained. Moderate bilateral fat containing inguinal hernias. Cholelithiasis. Currently with NG tube, TANA drain, NPO. Management as per Dr. Hernandez. Currently on two vasopressors, norepinephrine and vasopressin. On Zosyn IV t.i.d. NPO. Dilaudid p.r.n. for pain control. Acute kidney injury on CKD likely secondary to renal tubular stasis: Suspected ATN, oliguria: Baseline creatinine 1.5, creatinine trending up. Creatinine 2.00, BUN/creatinine ratio 28.5. Nephrology Dr. Padilla consulted. reommended to continue bicarbonate drip for another 24 hours and if no progress than possible CRRT from tomorrow Continue bicarb 150 mEq in D5W at 75 cc/hour Alcohol use disorder: The patient admits drinking 1 oz of trisha with coke everyday for at least 45 years. Alcohol withdrawal protocol in place. Folic acid 1 mg IV daily. Thiamine 200 mg IV t.i.d. Diazepam 5 mg IV q.4h as needed. Hypertension: Current blood pressure 114/75. Currently with hypotension. With two vasopressors, norepinephrine and vasopressin. Hyperglycemia: Diabetes mellitus: Glucose levels of 187. Hemoglobin A1c 6.1. On Humulin sliding scale. Hypothyroidism: Follow-up TSH. We will continue his levothyroxine 25 mcg daily after med reconciliation. Dyslipidemia: Triglycerides 168, cholesterol 188, LDL 105, HDL 56 Code status: Full code DVT prophylaxis: SCDs Analgesia/sedation: Dilaudid Line/tube: PIV, NG tube. GI prophylaxis: Protonix IV. Nutrition: NPO PT: Yes Prognosis: Guarded Critical care time 35 minutes. Disposition: We will assume care after the patient is downgraded from ICU. Continue management as per Dr. Hernandez. Bartolo Katz Internal Medicine Resident [facility] Date of Service: Feb 09, 2025 Billing Provider: JOHN CARDOSO MD Common Visit Codes: [id number] CARE 30-74 MIN BARTOLO COPPOLA, RES Feb 09, 2025 17:32 JOHN CARDOSO MD February 15, 2025 14:30
--- NOTE | 2025-02-09 18:04 | CONSULTATION REPORT - RESIDENT ---
Consult Providers to CC Resident Creating Document: AXEL KING RES CC: EUGENIO BROWN MD History of Present Illness Primary Medical Doctor: Dr. Linares Reason for Admit\Complaint: SBO History of Present Illness 84-year-old patient admitted on 02/08, with a PMH of HTN, T2 dm, HDL, hypothyroidism for abdominal pain, nausea and vomitings. He was diagnosed with small-bowel obstruction. He was taken to the OR and had undergone exploratory laparotomy, lysis of adhesions, appendectomy, polypoid resection, closure of enterotomy on 02/08. Later he was transferred to the ICU, his blood pressures has been low and he was started on two vasopressors. He is on oxygen 2 L/min. ICU team is consulted for further management Patient currently is receiving Dilaudid as needed for abdominal pain. He denies any complaints except for intermittent abdominal pain. Has not passed flatus yet Allergies: Coded Allergies: midazolam (Verified Allergy, Unknown, GOES CRAZY, 02/08/25) morphine (Verified Allergy, Unknown, 02/08/25) tetracycline (Verified Allergy, Unknown, 02/08/25) Home Medications Home Medications Active Reported Cyclobenzaprine HCl 5 Mg Tablet 1 Tab PO HS PRN Levothyroxine Sodium 25 Mcg Tablet 1 Tab PO DAILY Pantoprazole Sodium 40 Mg Tablet.dr 1 Tab PO DAILY Pravastatin Sodium 40 Mg Tablet 1 Tab PO DAILY Atenolol 50 Mg Tablet 1 Tab PO DAILY Metformin HCl 500 Mg Tablet 1 Tab PO DAILY Lisinopril 2.5 Mg Tablet 1 Tab PO DAILY Past Medical History Past Medical History Hypertension. Diabetes mellitus. Dyslipidemia. Hypothyroidism. CAD status post CABG Past Surgical History Surgical History Comment AAA surgery in [address]. [address] bypass surgery in 2002 two months after AAA surgery. GI bleed procedure Past Social History Social History Comment With smoking in 2002, history of 40 pack years, drinks one dose of Tia with Coke every day. Denies illicit drug use, lives with his ROS ROS ROS negative except for pertinent positives mentioned in HPI Exam Vitals: Vital Signs Date Time Temp Pulse Resp B/P (MAP) Pulse Ox O2 Delivery O2 Flow Rate FiO2 02/09/25 17:00 100.6 108 30 106/58 (74) 93 Nasal Cannula 6.0 General: General: Elderly male, on oxygen 2 L/min, AAO x4, but drowsy, not in apparent distress Head: Normocephalic with an atraumatic Eyes: Pupils- 3mm, reacting to light, conjunctiva- anicteric Nose and throat: No polyps, septum- normal, no mucosal ulcers Neck: Supple, no lymphadenopathy, no carotid bruit Respiratory: No use of accessory muscles of respiration, Bilateral good air entry Cardiac: S1-S2 heard, rythm regular, no gallop/murmur Abdomen: Distended, left side TANA drain present, dressing done over the abdomen, bowel sounds not heard Extremities: no clubbing, no pedal edema, no deformities, peripheral pulses- 2+ Skin: finger tips-bluish Neuro: No focal deficit, gross cranial nerve exam- normal Diagnostic Data Last Recorded Lab Results: 02/09/251402/09/2514 Diagnostic Data: Laboratory Tests Test 02/09/25 00:15 Prothrombin Time 12.5 SECONDS (9.0-12.0) H INR International Normalized Ratio 1.2 INR Coagulation Comments Additional Plan 84-year-old patient admitted on 02/08, with a PMH of HTN, T2 dm, HDL, hypothyroidism for abdominal pain, nausea and vomitings. He was diagnosed with small-bowel obstruction. He was taken to the OR and had undergone exploratory laparotomy, lysis of adhesions, appendectomy, polypoid resection, closure of enterotomy on 02/08. Later he was transferred to the ICU, his blood pressures has been low and he was started on two vasopressors. He is on oxygen 2 L/min. ICU team is consulted for further management GI SBO with peritonitis-secondary to adhesions s/p exploratory laparotomy, lysis of adhesions, appendectomy, polypoid resection, closure of enterotomy on 02/08 -currently NPO -has a TANA drain -management as per surgeon Dr. Hernandez ID Sepsis-POA Likely secondary to peritonitis Suspect GI source WBC 2.1, with 33% bandemia Blood Cultures x2 NGTD Procalcitonin 150 Continue Zosyn 3.375 q.8h Cardiovascular Shock likely suspect septic shock -currently on Levophed 0.04, and vasopressin 0.04 -monitor to maintain map above 65 Renal REMEDIOS on CKD Suspect ATN, oliguria Metabolic acidosis -baseline creatinine 1.5, creatinine going up to 2.2 -nephrology Dr. Padilla consulted. reommended to continue bicarbonate drip for another 24 hours and if no progress than possible CRRT from tomorrow -continue bicarb 150 mEq in D5W at 75 cc/hour Endocrine Type 2 DM with A1c of 6.1 Hypothyroid Monitor blood glucose to maintain less than 200 Humulin as needed Follow up on TSH Respiratory Tachypnea likely secondary to metabolic acidosis Currently on oxygen 2 L/min If mental status is worsening, patient might probably go towards intubation HOB 30 and aspiration precaution Heme-Onc Leukopenia Macrocytic anemia -suspect leukopenia secondary to sepsis -suspect macrocytic anemia secondary to alcohol intake -monitor CBC tried to place art line but was unscuccessful, Dr. Hernandez consulted anaesthesia for art line placement Code Status: Full code Analgesia/sedation: Dilaudid Line/tube: Right IJ central line GI prophylaxis: Protonix DVT prophylaxis: Heparin Nutrition: NPO PT/OT/SP: Yes Prognosis: Guarded Disposition: Continue care in ICU Axel King, ICU PGY-2 resident Patient is seen and evaluated during morning rounds, case discussed at morning conference and then during multidisciplinary rounds. Remains critical. I agree with the above assessment and treatment plan. Date of Service: Feb 09, 2025 Billing Provider: EUGENIO BROWN MD, HARIVARSHA, RES Feb 09, 2025 18:04 EUGENIO BROWN MD February 13, 2025 10:19
--- NOTE | 2025-02-09 18:10 | PROGRESS NOTE ---
Progress Note ID Providers to CC ~ Progress Note Progress Note: AROUSABLE/VS WITH LEVO/VASO/ABD-DISTENDED/LABS NOTED A/P 1. S/P EX LAP WITH SARAH-REMAINS SEPTIC/SUPPORTIVE CARE RAFAL ALFARO MD Feb 09, 2025 18:10
[2025-02-09] MEDS: albumin (human) 25% 100 ML IV solution IV ONE (19:29)
[2025-02-09 20:03] LABS: OXYGEN SATURATION (MIXED VEN) 75.9 % (60-80); PO2 MIXED VENOUS (TEMP COR) 43.4 mmHg (35-46)
[2025-02-09] MEDS: heparin, porcine 5000 units/ml vial SQ SCH (20:10)
[2025-02-09 20:18] LABS: ABG BASE EXCESS -5.6 mmol/L (-2.0-3.0); ABG HCO3 21.3 mmol/L (21.0-28.0); ABG OXYGEN SATURATION 94.4 % (94.0-98.0); ABG PO2 (T) 79.5 mmHg (83.0-108.0); ALLEN'S TEST Modified; FCOHb 0.9 % (0.5-1.5); FHHb 5.5 % (0.0-5.0); FMetHb 0.1 % (0.0-1.5); FO2Hb 93.5 % (94.0-98.0); MODE NC; PATIENT TEMPERATURE 37.7; TOTAL HEMOGLOBIN 11.6 G/dl (13.5-17.5)
[2025-02-10] VITALS (32 sets, daily range): BP systolic 85–145; BP diastolic 47–64; PULSE 89–108; RESP 16–33; O2SAT 88–97
[2025-02-10 02:59] LABS: BASOPHILS % (AUTO) 0.1 % (0-1); EOSINOPHILS % (AUTO) 0.1 % (0-6); HEMATOCRIT 33.4 % (42.0-52.0); HEMOGLOBIN 11.3 g/dl (14.0-17.9); LYMPHOCYTES # (AUTO) 0.2 X10'3 (1.1-4.8); LYMPHOCYTES % (AUTO) 2.3 % (21-51); MEAN CORPUSCULAR HEMOGLOBIN 33.2 PG (27.0-31.0); MEAN CORPUSCULAR HGB CONC 33.7 g/dL (33.0-36.5); MEAN CORPUSCULAR VOLUME 98.6 FL (78-98); MEAN PLATELET VOLUME 8.2 FL (7.4-10.4); MONOCYTES # (AUTO) 0.5 X10'3 (0-0.9); MONOCYTES % (AUTO) 5.8 % (2-12); NEUTROPHILS # (AUTO) 7.6 X10'3 (1.8-7.7); NEUTROPHILS % (AUTO) 91.7 % (42-75); PLATELET COUNT 112 X10'3 (140-440); RED BLOOD COUNT 3.39 X10'6 (4.70-6.10); RED CELL DISTRIBUTION WIDTH 13.2 % (11.5-14.5); WHITE BLOOD COUNT 8.2 X10'3 (4.5-11.0)
[2025-02-10 03:26] LABS: ALANINE AMINOTRANSFERASE 15 U/L (12-78); ALBUMIN/GLOBULIN RATIO 1.5 (1.1-1.5); ALKALINE PHOSPHATASE 26 IU/L (46-116); ANION GAP 8 (8-16); ASPARTATE AMINO TRANSFERASE 31 U/L (10-37); BILIRUBIN,TOTAL 0.7 MG/DL (0.1-1.0); BLOOD UREA NITROGEN 53 MG/DL (7-18); BUN/CREATININE RATIO 26.9 (10.0-20.0); CALCIUM 7.2 MG/DL (8.5-10.1); CHLORIDE 98 MMOL/L (99-107); CREATININE 1.97 MG/DL (0.60-1.10); GLUCOSE 120 MG/DL (70-104); MAGNESIUM 2.4 MG/DL (1.5-2.4); PHOSPHORUS 6.3 MG/DL (2.3-4.5); SODIUM 131 MMOL/L (135-145); THYROID STIMULATING HORMONE 0.32 ulU/ml (0.34-4.50); TOTAL CARBON DIOXIDE 25.1 MMOL/L (24-32); eCRCL 27 ML/MIN; eGFR 32 ML/MIN
[2025-02-10 03:28] LABS: POTASSIUM 4.9 MMOL/L (3.5-5.1)
[2025-02-10 03:37] LABS: PLATELET ESTIMATE DECREASED; TOTAL CELLS COUNTED 100; TOXIC VACUOLATION 1+
[2025-02-10] MEDS: propofol 1000mg/100ml bottle 100 ML IV ONE (04:27)
[2025-02-10] MEDS ORDERED: fentaNYL/PF 50MCG/1 ML 2ML syringe IV PRN ×2 (04:30→08:35)
--- NOTE | 2025-02-10 04:34 | PROGRESS NOTE ---
Progress Note Dictate Providers to CC ~ Antibiotic Ordered?: No Objective Vitals Vital Signs Date Time Temp Pulse Resp B/P (MAP) Pulse Ox O2 Delivery O2 Flow Rate FiO2 02/10/25 04:32 105 18 91 50 02/10/25 02:52 Nasal Cannula 6.0 02/10/25 02:00 99.1 101/52 (68) Lab Results: 02/10/25 0230 02/10/25 0230 Coagulation Studies Laboratory Tests Test 02/09/25 00:15 Prothrombin Time 12.5 SECONDS (9.0-12.0) H INR International Normalized Ratio 1.2 INR Coagulation Comments Problem\Assessment\Plan Additional Plan Patient is an 84 year old male who recently had abdominal surgery and admitted to the ICU for septic shock and RMEEDIOS. This morning I received a call from the nurses in the ICU that patient needs intubation and the ER physician has been called. When I saw the patient they had to start bagging him. Patient is on vasopressin and levophed.The ER physician arrived and intubated the patient with size 8 ET tube. Patient has greenish secretions . I spoke with the respiratory therapist and the ventilator setting would be 16 /400 / 50% + 5 and to have ABG in 30 minutes. For sedation patient to receive fentanyl pushes as needed and if need second sedation we'll start him on propofol. Patient to have HD catheter placed this morning in anticipation for CRRT. Patient currently is on bicarbonate drip . We will send tracheal aspirate for gram stain and culture. Patient was seen through remote audio-visual assessment through HIPAA compliant setup. All labs, flow sheets and images reviewed and discussed by the bedside nurse who was present during the visit.CC time 60 minutes. KALEIGH LORENZANA MD Feb 10, 2025 04:34
--- NOTE | 2025-02-10 04:47 | Physician Documentation ---
History of Present Illness ~ Chief Complaint: Abdominal Pain Stated Complaint: ABD PAIN Time Seen by MD: 09:09 OK to notify your PCP?: Yes Primary Medical Doctor: Dr. Linares Source: RN/, RN notes reviewed, old records HPI EDMD Alfred was called up to room 2011 in the ICU to perform intubation on the patient. Patient had fallen and been diagnosed with sepsis. He has been declining all day and became unresponsive and stopped breathing tonight. Patient was been pretty much obtunded and per nursing staff seems to have fatigued out in his no longer breathing. Upon arrival the patient has not Ambu bag Day of Onset: Feb 10, 2025 Time of Onset: 04:20 Medication Reconciliation Allergies: Coded Allergies: midazolam (Verified Allergy, Unknown, GOES CRAZY, 02/08/25) morphine (Verified Allergy, Unknown, 02/08/25) tetracycline (Verified Allergy, Unknown, 02/08/25) Scheduled Atenolol (Atenolol), 1 TAB PO DAILY, (Reported) Levothyroxine Sodium (Levothyroxine Sodium), 1 TAB PO DAILY, (Reported) Lisinopril (Lisinopril), 1 TAB PO DAILY, (Reported) Metformin HCl (Metformin HCl), 1 TAB PO DAILY, (Reported) Pantoprazole Sodium (Pantoprazole Sodium), 1 TAB PO DAILY, (Reported) Pravastatin Sodium (Pravastatin Sodium), 1 TAB PO DAILY, (Reported) Scheduled PRN Cyclobenzaprine HCl (Cyclobenzaprine HCl), 1 TAB PO HS PRN for MUSCLE SPASM, (Reported) Discontinued Medications Aspirin (Aspirin), 81 MG PO DAILY, (Reported) Discontinued Reason: Other Atenolol (Tenormin), 50 MG PO DAILY, (Reported) Discontinued Reason: Other Cyclobenzaprine HCl (Cyclobenzaprine HCl), 5 MG PO BID, (Reported) Discontinued Reason: Other Flaxseed Oil (Flaxseed Oil), 1,200 PO DAILY, (Reported) Discontinued Reason: Other Multivitamins* (Multivitamin*), 1 EACH PO DAILY, (Reported) Discontinued Reason: Other [place]-3 Fatty Acids/Fish Oil (Fish Oil 1,000 Mg Capsule), 1 EACH PO DAILY, (Reported) Discontinued Reason: Other Omeprazole* (Prilosec*), 20 MG PO BID, (Reported) Discontinued Reason: Other Pravastatin Sodium* (Pravachol*), 40 MG PO DAILY, (Reported) Discontinued Reason: Other Tamsulosin Hcl* (Flomax*), 0.4 MG PO DAILY, (Reported) Discontinued Reason: Other Tramadol Hcl/Acetaminophen* (Ultracet*), 2 TAB PO Q6H, (Reported) Discontinued Reason: Other Past Medical History Past Medical History: Coronary Artery Disease, High Cholesterol, Hypertension Other Past Surgical History: Bypass Smoking Status: Former smoker 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 HEENT: Head was normocephalic and atraumatic. Eyes - pupils equal, round, . Extraocular movements unable to evaluate. Conjunctivae were nonicteric. The mouth and oropharynx were dry mucous membranes as well as multiple green thick mucus discharge particularly in the posterior oropharynx. There were no pharyngeal exudates or erythema. NG tube in place Neck: Supple and nontender. There was no jugular venous distention, Chest: No spontaneous breathing. Diffuse rhonchi noted post intubation Heart: Rate regular and rhythmic. S1, S2. No murmurs. Abdomen: distended. No bowel sounds Extremities: No cyanosis, pitting edema noted Neurologic: Unable to evaluate Psychologic: Unable to evaluate Procedures Intubation Intubation Time: 422 Intubation Method: orotracheal Endotracheal Tube Size: 8.0 Medications: Etomidate, other ETT Confirmation: Ascultation Breath Sounds After Intubation: left greater than right Post Intubation Xray: Yes Progress/Xray Impression: Pulmonary venous congestion. Procedure Note 0423: BASHIR Simon performed an intubation on behalf of Dr. Stanley in room 2012 in ICU. Intubation was performed using 8-0 glidescope. Patient was given 40mg Roccironium and 20mg of etomidate. Lip line was placed at 24 but pulled back to 23. Xray confirmed placement as 1cm above the luis fernando. Progress Results/Orders Reviewed/noted all lab results: Yes Results/Orders Vital Signs 02/08/25 02/08/25 13:02 15:01 Temp 97.5 Pulse 99 Resp 18 B/P (MAP) 114/75 Pulse Ox 97 Laboratory Tests Test 02/08/25 13:11 White Blood Count 3.8 L Red Blood Count 4.59 L Hemoglobin 15.1 Hematocrit 45.1 Mean Corpuscular Volume 98.1 H Mean Corpuscular Hemoglobin 32.9 H Mean Corpuscular Hemoglobin Concent 33.5 Red Cell Distribution Width 13.0 Platelet Count 285 Mean Platelet Volume 7.7 Neutrophils (%) (Auto) 70.9 Lymphocytes (%) (Auto) 10.3 L Monocytes (%) (Auto) 18.7 H Eosinophils (%) (Auto) 0.1 Basophils (%) (Auto) 0 Neutrophils # (Auto) 2.7 Lymphocytes # (Auto) 0.4 L Monocytes # (Auto) 0.7 Eosinophils # (Auto) 0.0 Basophils # (Auto) 0.0 CBC Comment Differential Total Cells Counted 100 Neutrophils % (Manual) 42.0 Band Neutrophils % 31.0 H Lymphocytes % (Manual) 7.0 L Monocytes % (Manual) 18.0 H Eosinophils % (Manual) 1.0 Metamyelocytes % 1.0 H Platelet Estimate Normal Large Platelets Few Red Blood Cell Morphology Perf Basophilic Stippling Macrocytosis 1+ Sodium Level 134 L Potassium Level 4.9 Chloride Level 96 L Carbon Dioxide Level 27.8 Anion Gap 10 Blood Urea Nitrogen 57 H Creatinine 2.00 H Estimated GFR/1.73 m2 32 BUN/Creatinine Ratio 28.5 H Glucose Level 187 H Hemoglobin A1c 6.1 Osmolality 305 H Calcium Level 9.2 Total Bilirubin 1.0 Aspartate Amino Transf (AST/SGOT) 27 Alanine Aminotransferase (ALT/SGPT) 29 Alkaline Phosphatase 63 Total Protein 7.5 Albumin 4.3 Globulin 3.2 Albumin/Globulin Ratio 1.3 Triglycerides Level 168 H Cholesterol Level 188 LDL Cholesterol 105 H HDL Cholesterol 56 Cholesterol/HDL Ratio 3.4 Amylase Level 42 Lipase 20 Chemistry Comments Ethyl Alcohol Level < 10 Re-Evaluation Re-Evaluation : Re-Evaluation: Improved Progress Patient was seen and examined. Patient was in respiratory failure. There was some difficulty intubating the patient because of significant thick green mucus. Oropharynx was irrigated and suctioned. I then successfully passed the ETT without difficulty. Initial right mainstem intubation based on clinical exam ETT was moved 1 cm up x-ray was then obtained that showed adequate ventilation no pneumothorax and adequate placement of the ETT. Patient's blood pressure has a bit low increased Levophed briefly. Patient was stabilized and care was transferred back to the critical care physician. EKG/XRAY/CT/US/VASC/MRI Chest X-Ray : Additional Comments EXAM: XR Chest, 1 View CLINICAL INDICATION: ET Tube PLacement TECHNIQUE: Frontal view of the chest. COMPARISON: DI CHEST,SINGLE VIEW on DOS: 02/09/25, DI CHEST,SINGLE VIEW on DOS: 02/08/25 FINDINGS: LUNGS AND PLEURAL SPACES: Pulmonary venous congestion. Pleural effusions. No consolidation. No pneumothorax. HEART: Unremarkable. No cardiomegaly. MEDIASTINUM: Unremarkable. Normal mediastinal contour. BONES/JOINTS: Unremarkable. No acute fracture. TUBES, LINES AND DEVICES: Right internal jugular central venous catheter tip in the superior vena cava. The endotracheal tube (ETT) is in satisfactory position. Enteric tube tip in the stomach. OTHER FINDINGS: . IMPRESSION: Pulmonary venous congestion. 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 02/10/25 04:54 Attestation: The note accurately reflects work and decisions made by me.Nico Simon MD 02/10/25 04:46 NICO SIMON MD Feb 10, 2025 04:47 MAHAMED HUDSON Feb 10, 2025 04:54
[2025-02-10 04:56] LABS: ABG BASE EXCESS -5.7 mmol/L (-2.0-3.0); ABG HCO3 22.7 mmol/L (21.0-28.0); ABG OXYGEN SATURATION 95.8 % (94.0-98.0); ABG PCO2 (T) 49.5 mmHg (35.0-48.0); ABG PH (T) 7.261 (7.350-7.450); ABG PO2 (T) 71.8 mmHg (83.0-108.0); ALLEN'S TEST Modified; FCOHb 0.3 % (0.5-1.5); FHHb 4.2 % (0.0-5.0); FMetHb 0.1 % (0.0-1.5); FO2Hb 95.4 % (94.0-98.0); MODE prvc; PATIENT TEMPERATURE 33.7; PEEP 5 cm H2O; RESPIRATORY RATE 16 b/min; TIDAL VOLUME 400 mL; TOTAL HEMOGLOBIN 12.7 G/dl (13.5-17.5)
--- NOTE | 2025-02-10 05:12 | RADIOLOGY REPORT ---
EXAM: XR Chest, 1 View CLINICAL INDICATION: ET Tube PLacement TECHNIQUE: Frontal view of the chest. COMPARISON: DI CHEST,SINGLE VIEW on DOS: 02/09/25, DI CHEST,SINGLE VIEW on DOS: 02/08/25 FINDINGS: LUNGS AND PLEURAL SPACES: Pulmonary venous congestion. Pleural effusions. No consolidation. No p neumothorax. HEART: Unremarkable. No cardiomegaly. MEDIASTINUM: Unremarkable. Normal mediastinal contour. BONES/JOINTS: Unremarkable. No acute fracture. TUBES, LINES AND DEVICES: Right internal jugular central venous catheter tip in the superior vena c marsha. The endotracheal tube (ETT) is in satisfactory position. Enteric tube tip in the stomach. OTHER FINDINGS: . IMPRESSION: Pulmonary venous congestion.
[2025-02-10] MEDS: etomidate 2mg/ml inj. IV ONE (05:27)
[2025-02-10] MEDS: rocuronium 10mg/ml inj IV ONE (05:28)
[2025-02-10] MEDS: propofol 1000mg/100ml bottle 100 ML IV SCH (06:02)
--- NOTE | 2025-02-10 06:51 | PROGRESS NOTE ---
Progress Note Dictate Providers to CC ~ Antibiotic Ordered?: Yes Subjective Subjective Worsening septic shock, respiratory failure overnight, intubated, sedated, ventilated, creatinine had a modest improvement overnight Objective Vitals Vital Signs Date Time Temp Pulse Resp B/P (MAP) Pulse Ox O2 Delivery O2 Flow Rate FiO2 02/10/25 16:00 100.2 89 30 103/54 (70) 94 Mechanical Ventilator 18.0 40 General: Ill appearing, intubated, sedated, ventilated, Neck: Supple, without JVD Heart: Regular rate and rhythm, no murmur Lungs: Clear to auscultation and percussion Abdomen: Bowel sounds absent, no tenderness, organomegaly, masses, or hernia Extremities: No cyanosis, no edema, peripheral pulses intact Neurologic: Sensation to touch, normal. DTRs normal moves all extremities spontaneously. Lab Results: 02/10/25 0230 02/10/25 0230 Coagulation Studies Laboratory Tests Test 02/09/25 00:15 Prothrombin Time 12.5 SECONDS (9.0-12.0) H INR International Normalized Ratio 1.2 INR Coagulation Comments Other Results I & O 02/10/25 07:00 Intake Total 1901 ml Output Total 1517 ml Balance 384 ml IV Total 1901 ml Output Urine Total 817 ml Gastric Drainage Total 700 ml Problem\Assessment\Plan Problems/Diagnosis: (1) REMEDIOS (acute kidney injury) Assessment & Plan: Acute Kidney Injury (REMEDIOS): He demonstrates REMEDIOS, likely multifactorial due to perioperative factors, hypovolemia, sepsis, and vasopressor use. Creatinine has risen from 2.0 to 2.21 mg/dL, now improved overnight to 1.97, with significant oliguria (2near 800 mL urine output in 24 hours). Elevated lactic acid (2.3 mmol/L) yesterday, likely tissue hypoperfusion, improved, could hold D5W today. Fluid Management: Carefully balance IV fluid administration to optimize renal perfusion while avoiding fluid overload, especially given the use of vasopressors. Continue isotonic fluids (e.g., 0.9% NaCl) with frequent reassessment of volume status, hemodynamics, and urine output. Renal Monitoring and Management: Follow KDIGO guidelines for REMEDIOS management. Monitor renal function (BUN, creatinine) and electrolytes closely. Evaluate for potential initiation of renal replacement therapy (MANAGER PRIVATE) daily, start if there is worsening renal function, refractory metabolic acidosis, hyperkalemia, or fluid overload. (2) Leukopenia Assessment & Plan: Leukopenia with Bandemia: WBC count of 8.2 with 45% neutrophil bands indicates a stress response, possible sepsis, or bone marrow suppression. Hematological Monitoring: Repeat CBC to monitor WBC trends and assess ongoing infection or bone marrow response. Consider additional evaluation for causes of leukopenia if no improvement is noted. (3) Hemodynamic instability Assessment & Plan: Hemodynamic Instability: He is is on vasopressors (vasopressin, norepinephrine), indicating hemodynamic instability, likely contributing to renal hypoperfusion and further complicating renal recovery. Vasopressor Management: Work with the critical care team to optimize vasopressor support, aiming to improve mean arterial pressure (MAP) and renal perfusion. Adjust vasopressor dosing as necessary based on hemodynamic monitoring and fluid status. (4) Infection Assessment & Plan: Infection and Sepsis Management: Continue current antibiotic regimen with Zosyn, ensuring appropriate coverage for potential intra-abdominal infections. Monitor for clinical improvement and adjust antibiotics based on culture results and sensitivity patterns. JASON MILLIGAN III DO Feb 10, 2025 06:51
[2025-02-10] MEDS: pantoprazole 40 MG vial IV SCH (07:49)
[2025-02-10] MEDS ORDERED: fentaNYL 50mcg/ml PF inj. 2,500 MCG in normal saline 250ml IV soln 200 ML IV SCH (08:35)
[2025-02-10] MEDS ORDERED: MIDAZolam inj 50 MG in normal saline 50ml IV soln 40 ML IV SCH (08:50)
[2025-02-10] MEDS: FENTANYL-0.9 % NACL/PF 100 ML IV SCH (08:52)
[2025-02-10] MEDS ORDERED: MIDAZOLAM IN NACL,ISO-OSMOT/PF 100 ML IV PRN (09:00)
[2025-02-10] MEDS: midazolam 100mg in NS 100 ML INFUSION IV PRN (09:37)
--- NOTE | 2025-02-10 11:11 | PATHOLOGY REPORT ---
[facility] [address] [place] [address] SURGICAL PATHOLOGY REPORT CaseNumber: [id number] Surgeon:Ion Hernandez M.D. CLINICAL INFORMATION CLINICAL INFORMATION: Small bowel obstruction with peritonitis. DIAGNOSIS DIAGNOSIS: A.APPENDIX, LAPAROSCOPIC APPENDECTOMY - DISTAL LUMINAL SCLEROSIS - AREAS OF MILD TO MODERATE LUMINAL DILATATION - NO SIGNIFICANT INFLAMMATION - NO DYSPLASTIC OR NEOPLASTIC FEATURES DIAGNOSIS: B.SMALL BOWEL, OBSTRUCTED WITH PERITONITIS, LAPARO - AREAS ASSOCIATED WITH MILD TO MODERATE CHRONIC INFLAMMATION - NO SIGNIFICANT ISCHEMIA OR FEATURES OF INFARCTION - REACTIVE CHANGES WITHOUT DYSPLASTIC OR NEOPLASTIC FEATURES - HISTOLOGICALLY VIABLE SURGICAL MARGINS WITHOUT SIGNIFICANT INFLAMMATION MICROSCOPIC DESCRIPTION A. APPENDIX, LAPAROSCOPIC APPENDECTOMY MICROSCOPIC DESCRIPTION: Performed. B. SMALL BOWEL, OBSTRUCTED WITH PERITONITIS, LAPARO MICROSCOPIC DESCRIPTION: Reviewed are five H&E-stained slides. The sections of the grossly described bowel wall defect (B3-4) show increased edema and vascular congestion. Within the submucosa, some a reas are associated with mildly to moderately increased numbers of chronic inflammatory cells along w ith occasional small reactive lymphoid follicles. Associated reactive changes are noted. The other client services representative section (B5) also shows fairly prominent bowel wall edema with areas of vascular conge stion as well as some areas with mild submucosal chronic inflammation and reactive changes. No featu res of significant ischemia or infarction are identified. No dysplastic or neoplastic features are i dentified. The surgical margins (B1-2) are histologically viable and are not significantly inflamed. GROSS DESCRIPTION A. APPENDIX, LAPAROSCOPIC APPENDECTOMY GROSS DESCRIPTION: Received in a container of formalin labeled with the patient's name, number, and "appendix" is a uniform caliber vermiform appendix which measures 6 cm long by 0.7 cm in diameter. T he serosa is smooth and valentino. There is approximately 2 cm of attached periappendiceal fat. Sectioning reveals a mildly dilated lumen containing stool but no fecalith. Asbestos Siding Installer sections including th e proximal, mid, and distal portion of the appendix are submitted as A1. The time at which the specim en was removed was 1919. The time at which the specimen was placed in formalin was 2039. B. SMALL BOWEL, OBSTRUCTED WITH PERITONITIS, LAPARO GROSS DESCRIPTION: Received in a container of formalin labeled with the patient's name, number, and " small bowel" is a 8 cm length of bowel which measures 3 cm in diameter. The serosa is somewhat roughe alphonso and dusky with a 2.8 cm defect of the bowel wall. Both ends of the bowel are closed by a row of s urgical aníbal. The bowel is opened lengthwise to reveal a small amount of mucoid material. The muco sa is red and granular. A discrete mass lesion is not identified. Sections are submitted as follows:B 1-B2) Mucosal resection marginsB3-B4) Defect of the bowel wallB5) Asbestos Siding Installer The time at [facility] the specimen was removed was 1944. The time at which the specimen was placed in formalin was 2039 . Electronically signed by: Martir Chung M.D. 02/10/2025 10:37:00 AM
[2025-02-10] MEDS: micafungin inj 100 MG in normal saline 100ml IV soln 100 ML IV SCH (11:54)
[2025-02-10] MEDS: fludrocortisone acetate 0.1mg tablet PO SCH (12:11)
[2025-02-10] MEDS: hydrocortisone sod succ/PF 100mg/2ml inj. IV SCH (12:11)
[2025-02-10] MEDS ORDERED: Dextrose 10%-water IV solution 1,000 ML IV PRN (13:15)
[2025-02-10] MEDS ORDERED: dextrose 50%-water 50ml dispensing syringe IV PRN (14:20)
--- NOTE | 2025-02-10 14:24 | PROGRESS NOTE- Residence ---
Progress Note - Resident Providers to CC Resident Creating Document: JOSE KING RES CC: EUGENIO BROWN MD ~ Central Line/PICC still needed: Yes Bowen-Non Protocol Bowen Indications Met/Not Met: F/C Indications Met Antibiotic Timeout Antibiotic Ordered?: Yes If Yes, Indications: SEPSIS Subjective Patient got intubated at around 4:00 a.m. due to tachypnea, increased oxygen requirements and altered mental status. He remains on two vasopressors. No bowel movement yet Levophed requirements and the blue 0.1 from 0.04, and remains on vasopressin at 0.04 Objective Vital Signs Date Time Temp Pulse Resp B/P (MAP) Pulse Ox O2 Delivery O2 Flow Rate FiO2 02/10/25 13:26 99/49 02/10/25 13:00 30 50 02/10/25 13:00 100.6 107 94 Mechanical Ventilator 18.0 Result Diagram: 02/10/25 0230 02/10/25 0230 General: Elderly male, intubated, awake and alert on propofol sedation Head: Normocephalic with an atraumatic Eyes: Pupils- 3mm, reacting to light, conjunctiva- anicteric Nose and throat: No polyps, septum- normal, no mucosal ulcers Neck: Supple, no lymphadenopathy, no carotid bruit Respiratory: No use of accessory muscles of respiration, Bilateral good air entry Cardiac: S1-S2 heard, rythm regular, no gallop/murmur Abdomen: Distended, likely increased compared to yesterday, left side TANA drain present, dressing done over the abdomen, bowel sounds not heard Extremities: no clubbing, no pedal edema, no deformities, peripheral pulses- 2+ Skin: finger tips-bluish Neuro: Moving all extremity Coagulation Studies Laboratory Tests Test 02/09/25 00:15 Prothrombin Time 12.5 SECONDS (9.0-12.0) H INR International Normalized Ratio 1.2 INR Coagulation Comments Assessment Assessment 84-year-old patient admitted on 02/08, with a PMH of HTN, T2 dm, HDL, hypothyroidism for abdominal pain, nausea and vomitings. He was diagnosed with small-bowel obstruction. He was taken to the OR and had undergone exploratory laparotomy, lysis of adhesions, appendectomy, polypoid resection, closure of enterotomy on 02/08. Later he was transferred to the ICU, his blood pressures has been low and he was started on two vasopressors. ICU team is consulted for further management Plan Plan Respiratory Acute hypoxemic respiratory failure, intubated on 02/10 Respiratory acidosis -on AC/PRVC with 18/400/50/5, however patient's respirations were 30, likely secondary to compensation for metabolic acidosis -ABG-7.26/49.5/71/22, PF RATIO 177 -cxr-bilateral lower lobe atelectasis, pulmonary congestion -daily SBT/SAT GI SBO with peritonitis-secondary to adhesions s/p exploratory laparotomy, lysis of adhesions, appendectomy, polypoid resection, closure of enterotomy on 02/08 -intraabd pressure- 14, suggesting intraabdominal htn -currently NPO, no bm yet -has a TANA drain -management as per surgeon Dr. Hernandez ID Sepsis-POA Likely secondary to peritonitis Suspect GI source WBC improved to 8.2 from 2.1, with 32% bandemia Blood Cultures x2 NGTD Procalcitonin 150 Continue Zosyn 3.[address] Almaraz, ID added iv micafungin on 02/10 Added stress dose steroids IV hydrocortisone 100 mg q.8h and fludrocortisone 0.1 mg once daily Cardiovascular Shock likely suspect septic shock -currently on Levophed 0.1, and vasopressin 0.04 -monitor to maintain map above 65 Renal REMEDIOS on CKD Suspect ATN, oliguria Metabolic acidosis -baseline creatinine 1.5, creatinine down to 1.97 from 2.2 -uop of 1497 with net positive of 404 -bicarb improved to 24 -nephrology Dr. Padilla consulted. as per Dr. Padilla, DC bicarb drip, monitor for another 24 hours for BMP and urine output and then make a decision regarding the CRRT Fluid and electrolyte Hyponatremia -monitor BMP for now Endocrine Type 2 DM with A1c of 6.1 Hypothyroidism h/o Monitor blood glucose to maintain less than 200 Humulin as needed TSH-0.32, no need for levothyroxine Heme-Onc Leukopenia- improved Macrocytic anemia -suspect macrocytic anemia secondary to alcohol intake -monitor CBC EVENTS on 02/10 -patient got intubated -Levophed increased to 0.1, on vasopressin at 0.04 -added micafungin -TPN initiated -bicarb drip DCed -added hydrocortisone, and fludrocortisone Code Status: Full code Analgesia/sedation: Midaz/fentanyl Line/tube: Right IJ central line, right radial artery line, OGT, ETT, Bowen GI prophylaxis: Protonix DVT prophylaxis: Heparin Nutrition: TPN PT/OT/SP: Yes Prognosis: Guarded [facility] Patient is seen and evaluated during morning rounds, case discussed at morning conference and then during multidisciplinary rounds. Remains critical. I agree with the above assessment and treatment plan. Critical care time 35 minutes. Date of Service: Feb 10, 2025 Billing Provider: EUGENIO BROWN MD [facility] Feb 10, 2025 14:24 EUGENIO BROWN MD February 13, 2025 10:14
[2025-02-10] MEDS ORDERED: ringers solution, lactated 500ml IV solution IV ONE (14:50)
[2025-02-10] MEDS: ringers solution, lacted 1,000 ML IV ONE (14:55)
[2025-02-10] MEDS: dextrose 50%-water 50ml dispensing syringe IV PRN (14:58)
[2025-02-10] MEDS: albumin (human) 25% 100ml IV 100 ML IV ONE ×2 (15:57→16:17)
--- NOTE | 2025-02-10 18:27 | PROGRESS NOTE- Residence ---
Progress Note - Resident Providers to CC Resident Creating Document: BARTOLO COPPOLA, REEMA ~ Antibiotic Timeout Antibiotic Ordered?: Yes Subjective Patient was evaluated at the bedside. The patient got intubated during the last night due to increased oxygen demand. Objective Vital Signs Date Time Temp Pulse Resp B/P (MAP) Pulse Ox O2 Delivery O2 Flow Rate FiO2 02/10/25 17:56 99.9 98 20 100/47 (64) 93 Mechanical Ventilator 18.0 40 Physical exam: General: The patient currently under sedation due to mechanical ventilation. HEENT: Conjunctive are pink, sclerae clear, no icterus, pupil is equal in both sides, reactive to light, no ear discharge, no pharyngeal erythema or an edema. NG tube on place, draining black fluid. Neck: Supple, no JVD, no lymphadenopathy and thyromegaly. Chest: Equal air entry on both lungs, no additional sounds no rhonchi no wheezing at the moment. Presence of scar in the midline of the chest and abdomen from previous surgery. Cardiovascular: S1-S2 regular sinus rhythm and, regular rate, presence of systolic murmur best heard in the 2nd right intercostal space. Abdomen: Distended, presence of clean dressing and drain in the level of the lower abdomen. Extremities: No obvious deformities, no pitting edema bilaterally, capillary refill intact, peripheral pulsations are intact on both sides, currently with Bowen catheter. Central Nervous System: Currently under sedation due to mechanical ventilation. Musculoskeletal: No joint swelling, deformities, inflammations, and no scoliosis and back tenderness Skin: Warm and dry. Result Diagram: 02/10/25 0230 02/10/25 0230 Coagulation Studies Laboratory Tests Test 02/09/25 00:15 Prothrombin Time 12.5 SECONDS (9.0-12.0) H INR International Normalized Ratio 1.2 INR Coagulation Comments Assessment Assessment 84-year-old male patient came to the hospital with chief complaint of abdominal pain. Plan Plan Acute hypoxemic respiratory failure: Non-anion gap metabolic acidosis: The patient underwent intubation on 02/10/2025 due to increased oxygen demand. Patient is currently under mechanical ventilation. FiO2 40. ABG: PH 7.261, pCO2 495, HC03 22.7. Anion gap 8. Chest x-ray: Pulmonary venous congestion. Daily SVT/SAT. Septic shock likely secondary to small-bowel obstruction with peritonitis: POA: S/p exploratory laparotomy, lysis of adhesions, appendectomy, polypoid resection, closure of enterotomy: POD: 1 The patient came to the hospital with chief complaint of abdominal pain, throbbing type, 8/10 in intensity radiation from epigastrium to lower abdomen. On physical exam distended abdomen is evidenced, high-pitched bowel sounds are noticed in the right side of the abdomen. Absent bowel sounds in the left side. Tenderness in the left lower abdomen. Abdominal x-ray: Normal positioning of the enteric tube. CT abdominal scan: Findings consistent with small-bowel obstruction as described above. Scattered colonic diverticula without adjacent inflammatory changes to suggest diverticulitis. Bilateral renal cysts. Smaller right renal lesion is indeterminate, possibly a complex cyst, although solid lesion not excluded. Further evaluation with renal mass protocol CT or MRI could be obtained. Moderate bilateral fat containing inguinal hernias. Cholelithiasis. Currently with TANA drain, NPO. Intra-abdominal pressure-14, intra-abdominal hypertension. Management as per Dr. Hernandez. Currently on two vasopressors, norepinephrine and vasopressin. On Zosyn IV t.i.d. Added micafungin by Infectious Disease specialist Dr. Almaraz. Added stress dose of fludrocortisone and hydrocortisone. NPO. Dilaudid p.r.n. for pain control. Acute kidney injury on CKD likely secondary to renal tubular stasis: Suspected ATN, oliguria: Baseline creatinine 1.5, creatinine trending down. Creatinine 2.00, BUN/creatinine ratio 28.5. Nephrology Dr. Padilla recommended to discontinue bicarb drip, monitor 24 hours for BMP and urine output. Then CRRT will be decided. Alcohol use disorder: The patient admits drinking 1 oz of trisha with coke everyday for at least 45 years. Alcohol withdrawal protocol in place. Folic acid 1 mg IV daily. Thiamine 200 mg IV t.i.d. Diazepam 5 mg IV q.4h as needed. Hypertension: Current blood pressure 114/75. Currently with hypotension. With two vasopressors, norepinephrine and vasopressin. Hyperglycemia: Diabetes mellitus: Glucose levels of 187. Hemoglobin A1c 6.1. On Humulin sliding scale. Hypothyroidism: TSH 0.32. Discontinued levothyroxine. Dyslipidemia: Triglycerides 168, cholesterol 188, LDL 105, HDL 56 Code status: Full code DVT prophylaxis: SCDs Analgesia/sedation: Dilaudid Line/tube: PIV, NG tube. GI prophylaxis: Protonix IV. Nutrition: TPN PT: Yes Prognosis: Guarded Disposition: We will assume care after the patient is downgraded from ICU. Continue management as per Dr. Hernandez and threading machine feeder automatic. Critical care time 35 minutes. Bartolo Katz Internal Medicine Resident [facility] Date of Service: Feb 10, 2025 Billing Provider: JOHN CARDOSO MD Common Visit Codes: 97269-JNORLNCX CARE 30-74 MIN BARTOLO COPPOLA, RES Feb 10, 2025 18:27 JOHN CARDOSO MD February 15, 2025 14:30
[2025-02-10] MEDS: ZINC/COPPER/MANGANESE/SELENIUM 1 ML, chromic chloride inj. 10 MCG in AMINO ACIDS 5 %/DE... IV SCH (20:32)
[2025-02-10] MEDS: fat emulsion 20% inj. 100 ML IV SCH (20:33)
[2025-02-10] MEDS: acetaminophen 1,000mg/100ml IV 100 ML IV PRN (20:34)
--- NOTE | 2025-02-10 20:56 | PROGRESS NOTE ---
Progress Note ID Providers to CC ~ Progress Note Progress Note: intubated/pressor dependent/abd-distended/labs noted/cxr noted a/p 1. s/p mica with small bowel resection-persistent ileus/tpn-supportive care- follow iap RAFAL ALFARO MD Feb 10, 2025 20:56
[2025-02-10] MEDS: polyvinyl alcohol eye drops 15ML BOTTLE EACHEYE PRN (21:47)
[2025-02-11] VITALS (35 sets, daily range): BP systolic 88–152; BP diastolic 47–74; PULSE 84–104; RESP 17–28; O2SAT 95–100
--- NOTE | 2025-02-11 01:21 | CONSULTATION ---
DATE OF CONSULTATION: 02/10/2025 DICTATING PHYSICIAN: Blu Almaraz MD REASON FOR CONSULTATION: I am seeing the patient at the request of Dr. Hernandez for evaluation of peritonitis in the setting of operative treatment for small bowel obstruction. HISTORY OF PRESENT ILLNESS: The patient is an 84-year-old male who was admitted to this facility 2 days ago with abdominal pain. He apparently had some anorexia with nausea and vomiting at home. CT imaging showed evidence of a small bowel obstruction. Dr. Hernandez was consulted and the patient was felt to have an acute abdomen. He was taken to the operating room with Dr. Hernandez for exploratory laparotomy. He was found to have significant adhesions that were responsible for his obstruction. He required lysis of adhesions. In the process, he did sustain a few enterotomies. One of these was significant enough to require a small bowel resection with anastomosis. He also underwent appendectomy. He is now critically ill in the ICU. He remains intubated and he is sedated with fentanyl and propofol. Norepinephrine is currently infusing at 6 mcg per minute along with vasopressin. Urine output has been decent. He does have a low-grade fever. Interestingly, his white blood cell count was low yesterday at 2100, but he has bounced up to 8200 today. He is currently receiving Zosyn. PAST MEDICAL HISTORY: * Abdominal aortic aneurysm. * Coronary artery disease. * Diabetes mellitus type 2. * Hypertension. * Dyslipidemia. * Hypothyroidism. PAST SURGICAL HISTORY: * Repair of abdominal aortic aneurysm. * Coronary artery bypass grafting. ALLERGIES: TETRACYCLINE. MEDICATIONS: * Zosyn. * Fentanyl infusion. * Propofol infusion. * Norepinephrine infusion. * Vasopressin infusion. * Pantoprazole. * Subcutaneous heparin. * Insulin. * Thiamine. * Folate. FAMILY HISTORY: Noncontributory. SOCIAL HISTORY: He is and lives locally in [place]. Apparently, his has stage 4 lung cancer. It is unclear if they have children involved in their care. PHYSICAL EXAMINATION: VITAL SIGNS: His temperature is 100.2. Blood pressure has been a bit low with a systolic in the mid 80s. Heart rate is in the 90s. Respiratory rate is around 30 and he is on 60% FiO2 with PEEP of 5. GENERAL: He is an elderly male, currently sedated and intubated. HEENT: Sclerae anicteric. He does have a nasogastric tube in place. NECK: Right internal jugular central venous catheter in place. LUNGS: Clear to auscultation anteriorly. HEART: Regular rate and rhythm. ABDOMEN: With a large bandage at the midline. He does have one drain in place. EXTREMITIES: No significant edema. He has a right radial arterial line. LABORATORY DATA: His white blood cell count is 8200, hemoglobin 11.3, platelets 112,000. Creatinine is around 2. Procalcitonin greater than 150. Blood cultures are negative. Sputum culture is negative thus far with no organisms on gram stain. Chest x-ray with some bibasilar opacities. Echocardiogram with an EF of 55-60%. Initial CT imaging was reviewed. IMPRESSION: * Septic shock due to peritonitis. * Small bowel obstruction, requiring lysis of adhesions. He did develop some enterotomies with contamination of the peritoneal cavity. He has undergone small bowel resection with reanastomosis. * Acute respiratory failure. * Acute kidney injury. It is unclear if he has chronic kidney disease. Creatinine appears to be holding steady. * Leukopenia, likely related to sepsis that has now improved. * Thrombocytopenia that is now developing, likely due to sepsis. PLAN: Zosyn is certainly reasonable broad coverage for now. Given the current state of his illness, it may be reasonable to provide him with antifungal therapy. Hydrocortisone could be considered if he continues to be vasopressor dependent. Hopefully, he will start to gain some ground as he gets further out from surgery. Procalcitonin will be followed along with his cultures. I will continue to follow him closely and I thank you for allowing me to participate in his care. 75 minutes time spent [id number], review of medical record including labs/cultures/imaging, orders and documentation. Blu Almaraz MD TID: [id number] RECEIPT: [id number] EZRA/ALFRED/KADIE SLOAN
[2025-02-11 03:06] LABS: BASOPHILS % (AUTO) 0.2 % (0-1); EOSINOPHILS % (AUTO) 0 % (0-6); HEMOGLOBIN 10.9 g/dl (14.0-17.9); LYMPHOCYTES # (AUTO) 0.1 X10'3 (1.1-4.8); LYMPHOCYTES % (AUTO) 0.7 % (21-51); MEAN PLATELET VOLUME 9.2 FL (7.4-10.4); MONOCYTES # (AUTO) 0.2 X10'3 (0-0.9); NEUTROPHILS # (AUTO) 16.7 X10'3 (1.8-7.7)
[2025-02-11 03:08] LABS: HEMATOCRIT 32.3 % (42.0-52.0); MEAN CORPUSCULAR HEMOGLOBIN 33.2 PG (27.0-31.0); MEAN CORPUSCULAR HGB CONC 33.7 g/dL (33.0-36.5); MEAN CORPUSCULAR VOLUME 98.4 FL (78-98); MONOCYTES % (AUTO) 1.3 % (2-12); NEUTROPHILS % (AUTO) 97.8 % (42-75); PLATELET COUNT 94 X10'3 (140-440); RED BLOOD COUNT 3.28 X10'6 (4.70-6.10); RED CELL DISTRIBUTION WIDTH 13.1 % (11.5-14.5); WHITE BLOOD COUNT 17.1 X10'3 (4.5-11.0)
[2025-02-11 03:23] LABS: ALANINE AMINOTRANSFERASE 22 U/L (12-78); ALBUMIN 2.5 G/DL (3.4-5.0); ALKALINE PHOSPHATASE 69 IU/L (46-116); ANION GAP 9 (8-16); ASPARTATE AMINO TRANSFERASE 52 U/L (10-37); BILIRUBIN,TOTAL 0.9 MG/DL (0.1-1.0); BLOOD UREA NITROGEN 69 MG/DL (7-18); BUN/CREATININE RATIO 28.9 (10.0-20.0); CALCIUM 7.4 MG/DL (8.5-10.1); CHLORIDE 104 MMOL/L (99-107); CREATININE 2.39 MG/DL (0.60-1.10); GLUCOSE 322 MG/DL (70-104); MAGNESIUM 2.4 MG/DL (1.5-2.4); PHOSPHORUS 4.9 MG/DL (2.3-4.5); POTASSIUM 4.8 MMOL/L (3.5-5.1); SODIUM 138 MMOL/L (135-145); TOTAL CARBON DIOXIDE 25.2 MMOL/L (24-32); TRIGLYCERIDES 338 MG/DL (20-135); eCRCL 23 ML/MIN; eGFR 26 ML/MIN
[2025-02-11 03:31] LABS: ANISOCYTOSIS 1+; BANDS% (MANUAL) 3.2 % (0-10); LYMPHOCYTES % (MANUAL) 1.1 % (21-51); MONOCYTES % (MANUAL) 1.1 % (2-12); NEUTROPHILS % (MANUAL) 94.7 % (42-75); PLATELET ESTIMATE DECREASED; TOTAL CELLS COUNTED 94
[2025-02-11 05:04] LABS: ABG BASE EXCESS -4.1 mmol/L (-2.0-3.0); ABG HCO3 21.2 mmol/L (21.0-28.0); ABG OXYGEN SATURATION 94.2 % (94.0-98.0); ABG PCO2 (T) 39.8 mmHg (35.0-48.0); ABG PH (T) 7.344 (7.350-7.450); ABG PO2 (T) 74.2 mmHg (83.0-108.0); ALLEN'S TEST POSITIVE; FCOHb 0.3 % (0.5-1.5); FHHb 5.8 % (0.0-5.0); FO2Hb 93.9 % (94.0-98.0); MODE VENT - AC; PATIENT TEMPERATURE 37.2; PEEP 5 cm H2O; RESPIRATORY RATE 18 b/min; TIDAL VOLUME 400 mL; TOTAL HEMOGLOBIN 11.5 G/dl (13.5-17.5)
--- NOTE | 2025-02-11 05:55 | RADIOLOGY REPORT ---
EXAM: XR Chest, 1 View CLINICAL INDICATION: ET Tube PLacement TECHNIQUE: Frontal view of the chest. COMPARISON: DI CHEST,SINGLE VIEW on DOS: 02/10/25, DI CHEST,SINGLE VIEW on DOS: 02/09/25, DI CHEST,SI NGLE VIEW on DOS: 02/08/25 FINDINGS: LUNGS AND PLEURAL SPACES: Pulmonary venous congestion. Bilateral pleural effusions. No consolidat ion. No pneumothorax. HEART: Unremarkable. No cardiomegaly. MEDIASTINUM: Unremarkable. Normal mediastinal contour. BONES/JOINTS: Unremarkable. No acute fracture. TUBES, LINES AND DEVICES: Right internal jugular central venous catheter tip in the superior vena c marsha. The endotracheal tube (ETT) is in satisfactory position. Enteric tube tip in the stomach. OTHER FINDINGS: . . . IMPRESSION: 1. Pulmonary venous congestion. 2. Bilateral pleural effusions.
--- NOTE | 2025-02-11 06:52 | PROGRESS NOTE ---
Progress Note Dictate Providers to CC ~ Antibiotic Ordered?: Yes Subjective Subjective No new events overnight, has fair UOP 25-40/hg/hr overnight 745 mL, worsening creatinine, sedated, intubated, ventilated, on pressers, no IVF Objective Vitals Vital Signs Date Time Temp Pulse Resp B/P (MAP) Pulse Ox O2 Delivery O2 Flow Rate FiO2 02/11/25 17:55 100.0 84 28 95/50 (65) 97 02/11/25 17:00 40 02/11/25 11:58 Mechanical Ventilator 02/11/25 09:00 18.0 General: Ill appearing, intubated, ventilated, Neck: Supple, without JVD Heart: Regular rate and rhythm, no murmur Lungs: Clear to auscultation and percussion Abdomen: Bowel sounds decreased, no tenderness, organomegaly, masses, or hernia Extremities: No cyanosis, no edema, peripheral pulses intact Neurologic: Sensation to touch, normal. DTRs normal moves all extremities spontaneously. Lab Results: 02/11/25 0217 02/11/25 0217 Coagulation Studies Laboratory Tests Test 02/09/25 00:15 Prothrombin Time 12.5 SECONDS (9.0-12.0) H INR International Normalized Ratio 1.2 INR Coagulation Comments Other Results I & O 02/11/25 07:00 Intake Total 587.70 ml Output Total 1030 ml Balance -442.30 ml IV Total 587.70 ml Output Urine Total 745 ml Gastric Drainage Total 250 ml Drainage Total 35 ml Problem\Assessment\Plan Problems/Diagnosis: (1) REMEDIOS (acute kidney injury) Assessment & Plan: Acute Kidney Injury (REMEDIOS): He demonstrates REMEDIOS, likely multifactorial due to perioperative factors, hypovolemia, sepsis, and vasopressor in use. Creatinine had initially risen from 2.0 to 2.21 mg/dL, some improvement, now worsening overnight from 1.97 to 2.39, with significant oliguria (near 750 mL urine output in 24 hours). Elevated lactic acid (2.3 mmol/L) yesterday, likely tissue hypoperfusion, improved, held D5W yesterday, acidemia resolved Fluid Management: Carefully balance IV fluid administration to optimize renal perfusion while avoiding fluid overload, especially given the use of vasopressors. Start isotonic fluids LR at 75-100 mL/hr with frequent reassessment of volume status, hemodynamics, and urine output. Renal Monitoring and Management: Follow KDIGO guidelines for REMEDIOS management. Monitor renal function (BUN, creatinine) and electrolytes closely. Evaluate for potential initiation of renal replacement therapy (CONTRACT DESIGN AGENT) daily, start if there is a trend of worsening renal function, refractory metabolic acidosis, hyperkalemia, or fluid overload. (2) Leukopenia Assessment & Plan: Leukopenia with Bandemia: Improving, continue to monitor (3) Hemodynamic instability Assessment & Plan: Hemodynamic Instability: He is is on vasopressors (vasopressin, norepinephrine), indicating hemodynamic instability, likely contributing to renal hypoperfusion and further complicating his renal recovery. Vasopressor Management: Work with the critical care team to optimize vasopressor support, and IVF management, aiming to improve mean arterial pressure (MAP) and renal perfusion. Adjust vasopressor dosing as necessary based on hemodynamic monitoring and fluid status. (4) Infection Assessment & Plan: Infection and Sepsis Management: Continue current antibiotic regimen with Zosyn, ensuring appropriate coverage for potential intra-abdominal infections. Monitor for clinical improvement and adjust antibiotics based on culture results and sensitivity patterns. JASON MILLIGAN III DO February 11, 2025 06:52
[2025-02-11] MEDS: ringers solution, lacted 1,000 ML IV SCH (07:43)
[2025-02-11] MEDS: insulin regular, human U-100 10ml vial - multi-dose SQ SCH (08:23)
--- NOTE | 2025-02-11 09:43 | PROGRESS NOTE ---
Progress Note Dictate Providers to CC ~ Subjective Subjective: He has remained stable. On NE at 4 mcg/min along with vasopressin. Sedated with fentanyl and midazolam. Oxygenation a bit better. UO decent. He has been started on TPN. Objective Objective: GENERAL: Elderly male, currently sedated and intubated. HEENT: Nasogastric tube in place. NECK: Right internal jugular central venous catheter in place. LUNGS: Clear to auscultation anteriorly. HEART: Regular rate and rhythm. ABDOMEN: With a large bandage at the midline. He does have one drain in place. EXTREMITIES: No significant edema. He has a right radial arterial line. Lab Results: 02/11/2521602/11/25216 Lab comments: PCT 146 and dropping Problem\Assessment\Plan Additional Plan 1. Septic shock due to peritonitis. 2. SBO s/p lysis of adhesions. He did develop some enterotomies with contamination of the peritoneal cavity. He has undergone small bowel resection with reanastomosis. 3. Acute respiratory failure. 4. Acute kidney injury. It is unclear if he has chronic kidney disease. Cr up to 2.4. 5. Leukocytosis - recovery from leukopenia associated with sepsis 6. Thrombocytopenia that is now developing, likely due to sepsis. Continue Zosyn Continue micafungin for now Follow PCT TPN for nutritional support Hopefully he will continue to slowly recover D/W nursing ELIZABET RODRIGUEZ MD February 11, 2025 09:43
--- NOTE | 2025-02-11 11:04 | PROGRESS NOTE- Residence ---
Progress Note - Resident Providers to CC Resident Creating Document: AXEL KING RES CC: EUGENIO BROWN MD ~ Central Line/PICC still needed: Yes Central Line/PICC Necessity: Prolonged IV access req Bowen-Non Protocol Bowen Indications Met/Not Met: F/C Indications Met Antibiotic Timeout Antibiotic Ordered?: Yes If Yes, Indications: sepsis Subjective He is intubated and sedated. Currently on dual vasopressors. No fevers. No other acute overnight events, fio2 down to 40 Objective Vital Signs Date Time Temp Pulse Resp B/P (MAP) Pulse Ox O2 Delivery O2 Flow Rate FiO2 02/11/25 09:57 104 23 96 40 02/11/25 09:00 98.8 127/63 (84) Mechanical Ventilator 18.0 Result Diagram: 02/11/2521602/11/25216 General: Elderly male, intubated, and sedated Head: Normocephalic with an atraumatic Eyes: Pupils- 3mm, reacting to light, conjunctiva- anicteric Nose and throat: No polyps, septum- normal, no mucosal ulcers Neck: Supple, no lymphadenopathy, no carotid bruit Respiratory: No use of accessory muscles of respiration, Bilateral good air entry Cardiac: S1-S2 heard, rythm regular, no gallop/murmur Abdomen: Distended, distension coming down, left side TANA drain present, dressing done over the abdomen, bowel sounds not heard Extremities: no clubbing, no pedal edema, no deformities, peripheral pulses- 2+ Skin: finger tips-bluish Neuro: not elicited as he is sedated Coagulation Studies Laboratory Tests Test 02/09/25 00:15 Prothrombin Time 12.5 SECONDS (9.0-12.0) H INR International Normalized Ratio 1.2 INR Coagulation Comments Assessment Assessment 84-year-old patient admitted on 02/08, with a PMH of HTN, T2 dm, HDL, hypothyroidism for abdominal pain, nausea and vomitings. He was diagnosed with small-bowel obstruction. He was taken to the OR and had undergone exploratory laparotomy, lysis of adhesions, appendectomy, polypoid resection, closure of enterotomy on 02/08. Later he was transferred to the ICU, his blood pressures has been low and he was started on two vasopressors. ICU team is consulted for further management Plan Plan Respiratory Acute hypoxemic respiratory failure, intubated on 02/10 Respiratory acidosis -on AC/PRVC with 18/400/40/5, -ABG- 7.34/38.8/74.2, 21.2, mild metabolic acidosis -cxr-bilateral lower lobe atelectasis, pulmonary congestion, with mild b/l plefs -daily SBT/SAT GI SBO with peritonitis-secondary to adhesions s/p exploratory laparotomy, lysis of adhesions, appendectomy, polypoid resection, closure of enterotomy on 02/08 -intraabd pressure- 18, suggesting intraabdominal htn -no bm yet -has a TANA drain -to start trickle feeds as per surgeon -management as per surgeon Dr. Mary GAINES Sepsis-POA Likely secondary to peritonitis Suspect GI source WBC-17.1, bandemia reduced, leukocytosis likely suspect secondary to steroids Blood Cultures x2 NGTD Procalcitonin 146>>150 Continue Zosyn 3.[address] Almaraz, ID added iv micafungin on 02/10 continue stress dose steroids IV hydrocortisone 100 mg q.8h and fludrocortisone 0.1 mg once daily startred on 02/10 Cardiovascular Shock likely suspect septic shock -currently on Levophed 0.08, and vasopressin 0.04 -wean off, and monitor to maintain map above 65 Renal REMEDIOS on CKD Suspect ATN, oliguria Metabolic acidosis -baseline creatinine 1.5, creatinine increased to 2.29 -uop of 1L yesterday -bicarb-21 -nephrology Dr. Padilla consulted. as per Dr. Padilla, monitor for another 24 hours for BMP and urine output, and added LR @ 75cc/hr, and then make a decision regarding the CRRT Fluid and electrolyte Hyponatremia- resolved -monitor BMP for now Endocrine Type 2 DM with A1c of 6.1 Stress induced hyperglycemia Hypothyroidism h/o Monitor blood glucose to maintain less than 200 high dose Humulin as needed humulin 8U Q6 NELLY TSH-0.32, no need for levothyroxine Heme-Onc Leukopenia- improved Macrocytic anemia -suspect macrocytic anemia secondary to alcohol intake -monitor CBC EVENTS on 02/10 -patient got intubated -Levophed increased to 0.1, on vasopressin at 0.04 -added micafungin -TPN initiated -bicarb drip DCed -added hydrocortisone, and fludrocortisone events on 10/18 -insulin adjusted for hyperglycemia -LR @ 75cc/hr as per Dr. Valerie espinoza feeds as per Dr. Hernandez -fio2 down to 50 Code Status: Full code Analgesia/sedation: Midaz/fentanyl Line/tube: Right IJ central line, right radial artery line, OGT, ETT, Bowen GI prophylaxis: Protonix DVT prophylaxis: Heparin Nutrition: TPN PT/OT/SP: Yes Prognosis: Guarded Disposition: Continue care in ICU Axel King, ICU PGY-2 resident Patient is seen and evaluated during morning rounds, case discussed at morning conference and then during multidisciplinary rounds. Remains critical. I agree with the above assessment and treatment plan. Date of Service: February 11, 2025 Billing Provider: EUGENIO BROWN MD, HARIVARSHA, [facility] February 11, 2025 11:04 EUGENIO BROWN MD February 13, 2025 10:16
[2025-02-11] MEDS ORDERED: acetaminophen 325mg tablet NG PRN (15:38)
[2025-02-11] MEDS ORDERED: potassium Cl 20 mEq SR tablet NG PRN ×2 (15:39)
--- NOTE | 2025-02-11 17:09 | PROGRESS NOTE ---
Progress Note ID Providers to CC ~ Progress Note Progress Note: intubated/sedated/pressor dependent/abd-less distended/labs noted a/p 1. s/p mica/small bowel resection-persistent sepsis/cont supportive care RAFAL ALFARO MD February 11, 2025 17:09
--- NOTE | 2025-02-11 17:23 | PROGRESS NOTE- Residence ---
Progress Note - Resident Providers to CC Resident Creating Document: BARTOLO COPPOLA, REEMA ~ Antibiotic Timeout Antibiotic Ordered?: Yes Subjective The patient has been evaluated at the bedside. Patient remains under mechanical ventilation. Objective Vital Signs Date Time Temp Pulse Resp B/P (MAP) Pulse Ox O2 Delivery O2 Flow Rate FiO2 02/11/25 16:14 90 18 96 40 02/11/25 16:00 99.7 94/50 (65) 02/11/25 11:58 Mechanical Ventilator 02/11/25 09:00 18.0 Physical exam: General: The patient currently under sedation due to mechanical ventilation. HEENT: Conjunctive are pink, sclerae clear, no icterus, pupil is equal in both sides, reactive to light, no ear discharge, no pharyngeal erythema or an edema. Neck: Supple, no JVD, no lymphadenopathy and thyromegaly. Chest: Equal air entry on both lungs, no additional sounds no rhonchi no wheezing at the moment. Presence of scar in the midline of the chest and abdomen from previous surgery. Cardiovascular: S1-S2 regular sinus rhythm and, regular rate, presence of systolic murmur best heard in the 2nd right intercostal space. Abdomen: Distended, presence of clean dressing and drain in the level of the lower abdomen. Extremities: No obvious deformities, no pitting edema bilaterally, capillary refill intact, peripheral pulsations are intact on both sides, currently with Bwoen catheter. Central Nervous System: Currently under sedation due to mechanical ventilation. Musculoskeletal: No joint swelling, deformities, inflammations, and no scoliosis and back tenderness Skin: Warm and dry. Result Diagram: 02/11/257 02/11/25 0217 Coagulation Studies Laboratory Tests Test 02/09/25 00:15 Prothrombin Time 12.5 SECONDS (9.0-12.0) H INR International Normalized Ratio 1.2 INR Coagulation Comments Assessment Assessment 84-year-old male patient came to the hospital with chief complaint of abdominal pain. Plan Plan Acute hypoxemic respiratory failure: Non-anion gap metabolic acidosis: The patient underwent intubation on 02/10/2025 due to increased oxygen demand. Patient is currently under mechanical ventilation. FiO2 40. ABG: PH 7.261, pCO2 495, HC03 22.7. Anion gap 8. Chest x-ray: Pulmonary venous congestion. Daily SVT/SAT. Septic shock likely secondary to small-bowel obstruction with peritonitis: POA: S/p exploratory laparotomy, lysis of adhesions, appendectomy, polypoid resection, closure of enterotomy: POD: 1 The patient came to the hospital with chief complaint of abdominal pain, throbbing type, 8/10 in intensity radiation from epigastrium to lower abdomen. On physical exam distended abdomen is evidenced, high-pitched bowel sounds are noticed in the right side of the abdomen. Absent bowel sounds in the left side. Tenderness in the left lower abdomen. Abdominal x-ray: Normal positioning of the enteric tube. CT abdominal scan: Findings consistent with small-bowel obstruction as described above. Scattered colonic diverticula without adjacent inflammatory changes to suggest diverticulitis. Bilateral renal cysts. Smaller right renal lesion is indeterminate, possibly a complex cyst, although solid lesion not excluded. Further evaluation with renal mass protocol CT or MRI could be obtained. Moderate bilateral fat containing inguinal hernias. Cholelithiasis. With TANA drain, NPO. Intra-abdominal pressure-14, intra-abdominal hypertension. Management as per Dr. Hernandez. Currently on two vasopressors, norepinephrine and vasopressin. On Zosyn IV t.i.d. Added micafungin by Infectious Disease specialist Dr. Almaraz. On 02/10. Continue stress dose steroids fludrocortisone 100 mg q.8h IV and hydrocortisone 0.1 mg daily. Started on 02/10. NPO. Acute kidney injury on CKD likely secondary to renal tubular stasis: Suspected ATN, oliguria: Baseline creatinine 1.5, creatinine trending down. Creatinine 2.00, BUN/creatinine ratio 28.5. Nephrology Dr. Padilla recommended at LR at 75 mL/hour, monitor 24 hours for BMP and urine output. Then CRRT will be decided. Alcohol use disorder: The patient admits drinking 1 oz of trisha with coke everyday for at least 45 years. Alcohol withdrawal protocol in place. Folic acid 1 mg IV daily. Thiamine 200 mg IV t.i.d. Diazepam 5 mg IV q.4h as needed. Hypertension: Current blood pressure 114/75. Currently with hypotension. With two vasopressors, norepinephrine and vasopressin. Hyperglycemia: Diabetes mellitus: Glucose levels of 187. Hemoglobin A1c 6.1. On Humulin sliding scale. Hypothyroidism: TSH 0.32. Discontinued levothyroxine. Dyslipidemia: Triglycerides 168, cholesterol 188, LDL 105, HDL 56 Code status: Full code DVT prophylaxis: SCDs Analgesia/sedation: Dilaudid Line/tube: PIV, NG tube. GI prophylaxis: Protonix IV. Nutrition: TPN PT: Yes Prognosis: Guarded Disposition: We will assume care after the patient is downgraded from ICU. Continue management as per Dr. Hernandez and plant custodian. Bartolo Katz Internal Medicine Resident [facility] Date of Service: February 11, 2025 Billing Provider: AFUA GUTIERREZ MD Common Visit Codes: [id number] INP/OBS CARE(MOD) BARTOLO COPPOLA, RES February 11, 2025 17:23 AFUA GUTIERREZ MD February 12, 2025 18:52
--- NOTE | 2025-02-11 19:24 | PROGRESS NOTE ---
Progress Note Dictate Providers to CC ~ Antibiotic Ordered?: No Subjective Subjective Camera: On ventilator, On versed and fentanyl ->appears awake, opens eyes FIO2 40% on vasopressors->off levophed, and on vasopressin 0.04 unit/minute TPN 83.3 ml/hour, LR 100 ml/hour s/p Exp lap for SBO and closing enterotomy Objective Vitals Vital Signs Date Time Temp Pulse Resp B/P (MAP) Pulse Ox O2 Delivery O2 Flow Rate FiO2 02/11/25 20:46 99 20 97 40 02/11/25 20:00 99.9 132/59 (83) 02/11/25 11:58 Mechanical Ventilator 02/11/25 09:00 18.0 Lab Results: 02/11/25 0217 02/11/25 0217 Coagulation Studies Laboratory Tests Test 02/09/25 00:15 Prothrombin Time 12.5 SECONDS (9.0-12.0) H INR International Normalized Ratio 1.2 INR Coagulation Comments Problem\Assessment\Plan Problems/Diagnosis: (1) 2cm Left Frontal Scalp Laceration (2) Infection (3) Leukopenia (4) REMEDIOS (acute kidney injury) (5) Hemodynamic instability (6) Respiratory failure (7) Small bowel obstruction Additional Plan 84-year-old patient admitted on 02/08, with a PMH of HTN, T2 dm, HDL, hypothyroidism for abdominal pain, nausea and vomitings. He was diagnosed with small-bowel obstruction. He was taken to the OR and had undergone exploratory laparotomy, lysis of adhesions, appendectomy, polypoid resection, closure of enterotomy on 02/08. Later he was transferred to the ICU, his blood pressures has been low and he was started on two vasopressors. ICU team is consulted for further management Assessment Acute Respiratory Failure-intubated 02/10 SBO with peritonitis Septic Shock REMEDIOS on CKD DM Recs -lung protective ventilation -Versed and Fentanyl drip for sedation -Wean levophed and vasopressin->only on vasopressin drip -TPN and LR IVF -s/p exp lap 02/08 -Stress dose IV steroid and fludro-cortisone -Zosyn and Mycamine -Protonix for GI prophylaxis -Heparin for DVT prophylaxis -TPN -Insulin SS-goal BS 140-180 mg/dl Seen via HIPAA compliant audio visual platform, spent 60 minutes Critical care time Problem Qualifiers (1) Respiratory failure: Qualified Codes: J96.00 - Acute respiratory failure, unspecified whether with hypoxia or hypercapnia ELIJAH SEWELL MD February 11, 2025 19:24
[2025-02-12] VITALS (35 sets, daily range): BP systolic 94–167; BP diastolic 47–78; PULSE 86–108; RESP 17–27; O2SAT 93–98
[2025-02-12 03:53] LABS: BASOPHILS % (AUTO) 0.2 % (0-1); EOSINOPHILS % (AUTO) 0 % (0-6); HEMOGLOBIN 9.9 g/dl (14.0-17.9); LYMPHOCYTES # (AUTO) 0.2 X10'3 (1.1-4.8); LYMPHOCYTES % (AUTO) 0.8 % (21-51); MEAN CORPUSCULAR HEMOGLOBIN 32.5 PG (27.0-31.0); MEAN CORPUSCULAR HGB CONC 33.1 g/dL (33.0-36.5); MEAN CORPUSCULAR VOLUME 98.3 FL (78-98); MONOCYTES # (AUTO) 0.4 X10'3 (0-0.9); MONOCYTES % (AUTO) 1.9 % (2-12); NEUTROPHILS # (AUTO) 18.4 X10'3 (1.8-7.7); NEUTROPHILS % (AUTO) 97.1 % (42-75); PLATELET COUNT 57 X10'3 (140-440); RED BLOOD COUNT 3.05 X10'6 (4.70-6.10); RED CELL DISTRIBUTION WIDTH 13.6 % (11.5-14.5)
[2025-02-12 03:54] LABS: ABG BASE EXCESS -2.6 mmol/L (-2.0-3.0); ABG HCO3 24.1 mmol/L (21.0-28.0); ABG OXYGEN SATURATION 94.5 % (94.0-98.0); ABG PCO2 (T) 50.4 mmHg (35.0-48.0); ABG PH (T) 7.298 (7.350-7.450); ABG PO2 (T) 75.9 mmHg (83.0-108.0); ALLEN'S TEST POSITIVE; FCOHb 0.3 % (0.5-1.5); FHHb 5.5 % (0.0-5.0); FMetHb 0.3 % (0.0-1.5); FO2Hb 93.9 % (94.0-98.0); MODE VENT - AC; PATIENT TEMPERATURE 37.1; PEEP 5 cm H2O; RESPIRATORY RATE 18 b/min; TIDAL VOLUME 400 mL
[2025-02-12 04:36] LABS: ALANINE AMINOTRANSFERASE 25 U/L (12-78); ALBUMIN 1.9 G/DL (3.4-5.0); ALBUMIN/GLOBULIN RATIO 0.7 (1.1-1.5); ALKALINE PHOSPHATASE 110 IU/L (46-116); ANION GAP 7 (8-16); ASPARTATE AMINO TRANSFERASE 36 U/L (10-37); BILIRUBIN,TOTAL 0.5 MG/DL (0.1-1.0); BLOOD UREA NITROGEN 85 MG/DL (7-18); BUN/CREATININE RATIO 44.5 (10.0-20.0); CALCIUM 7.4 MG/DL (8.5-10.1); CHLORIDE 105 MMOL/L (99-107); CREATININE 1.91 MG/DL (0.60-1.10); GLUCOSE 184 MG/DL (70-104); MAGNESIUM 2.4 MG/DL (1.5-2.4); PHOSPHORUS 1.8 MG/DL (2.3-4.5); POTASSIUM 3.4 MMOL/L (3.5-5.1); SODIUM 137 MMOL/L (135-145); TOTAL CARBON DIOXIDE 25.4 MMOL/L (24-32); TOTAL PROTEIN 4.7 G/DL (6.4-8.2); eCRCL 28 ML/MIN; eGFR 34 ML/MIN
[2025-02-12] MEDS: potassium Cl 20mEq/100mL bag 100 ML IV PRN (05:03)
[2025-02-12 05:21] LABS: ANISOCYTOSIS 1+; PLATELET ESTIMATE DECREASED; TOTAL CELLS COUNTED 100
[2025-02-12] MEDS: sodium phosphate inj. 30 MMOL in dextrose 5%-water 250 ML IV PRN (05:26)
--- NOTE | 2025-02-12 05:58 | RADIOLOGY REPORT ---
EXAM: XR Chest, 1 View CLINICAL INDICATION: ET Tube PLacement TECHNIQUE: Frontal view of the chest. COMPARISON: DI CHEST,SINGLE VIEW on DOS: 02/11/25, DI CHEST,SINGLE VIEW on DOS: 02/10/25, DI CHEST,SIN GLE VIEW on DOS: 02/09/25, DI CHEST,SINGLE VIEW on DOS: 02/08/25 FINDINGS: LUNGS AND PLEURAL SPACES: Bilateral pleural effusions. No consolidation. No pneumothorax. HEART: Unremarkable. No cardiomegaly. MEDIASTINUM: Unremarkable. Normal mediastinal contour. BONES/JOINTS: Unremarkable. No acute fracture. TUBES, LINES AND DEVICES: The endotracheal tube (ETT) is in satisfactory position. Enteric tube ti p in the stomach. Right internal jugular central venous catheter tip in the superior vena cava. OTHER FINDINGS: . . . IMPRESSION: Bilateral pleural effusions.
--- NOTE | 2025-02-12 07:05 | PROGRESS NOTE ---
Progress Note Dictate Providers to CC ~ Antibiotic Ordered?: Yes Subjective Subjective Ding well overnight, off pressors today, stil intubated, Vet TY increased, creatinint down to 1.91 with gentle IVF LR, some mild edema dependent Objective Vitals Vital Signs Date Time Temp Pulse Resp B/P (MAP) Pulse Ox O2 Delivery O2 Flow Rate FiO2 02/12/25 10:46 18 02/12/25 10:00 98.6 88 109/57 (74) 97 02/12/25 09:00 40 02/12/25 08:00 Mechanical Ventilator 02/11/25 09:00 18.0 General: Ill appearing, intubated ventilated Neck: No JVD, or bruits CV: RRR w/o murmur, pulses 2+ symmetrical, 1+ edema Pulm: CTA Bilateral no wheezes Abd: + BS, NT Musc: Moves spontaneously Lab Results: 02/12/25 0250 02/12/25 0250 Coagulation Studies Laboratory Tests Test 02/09/25 00:15 Prothrombin Time 12.5 SECONDS (9.0-12.0) H INR International Normalized Ratio 1.2 INR Coagulation Comments Other Results I & O 02/12/25 07:00 Intake Total 4220.83 ml Output Total 1525 ml Balance 2695.83 ml IV Total 4080.83 ml Tube Feeding 140 ml Output Urine Total 1010 ml Gastric Drainage Total 100 ml Drainage Total 415 ml Problem\Assessment\Plan Problems/Diagnosis: (1) REMEDIOS (acute kidney injury) Assessment & Plan: Acute Kidney Injury (REMEDIOS): He demonstrates REMEDIOS, likely multifactorial due to perioperative factors, hypovolemia, sepsis, previous pressor need. Creatinine had initially risen from 2.0 to 2.21 mg/dL, some improvement, now worsening overnight from 2.39 to 1.91, with significant oliguria initially now improved (near 1L urine output in 24 hours). Elevated lactic acid (2.3 mmol/L) yesterday, likely tissue hypoperfusion, acidemia resolved Fluid Management: Carefully balance IV fluid administration to optimize renal perfusion while avoiding fluid overload, especially given the use of vasopressors. Start isotonic fluids LR at 50-75 mL/hr for the next 24 hours, with frequent reassessment of volume status, hemodynamics, and urine output. If renal function continues to improve and creatinine below 1.5, consider cautious use of diuretics if indicated Renal Monitoring and Management: Follow KDIGO guidelines for REMEDIOS management. Monitor renal function (BUN, creatinine) and electrolytes closely. Evaluate for potential initiation of renal replacement therapy (LINE INSPECTOR) daily, start if there is a trend of worsening renal function, refractory metabolic acidosis, hyperkalemia, or fluid overload. (2) Leukopenia Assessment & Plan: Resolved (3) Hemodynamic instability Assessment & Plan: Hemodynamic Instability: He is is off vasopressors (vasopressin, norepinephrine), indicating improved hemodynamic stability, initially contributing to renal hypoperfusion and further complicating his renal recovery. Vasopressor Management: Work with the critical care team to optimize vasopressor support, and IVF management, aiming to improve mean arterial pressure (MAP) and renal perfusion. Adjust vasopressor dosing as necessary based on hemodynamic monitoring and fluid status. (4) Infection Assessment & Plan: Infection and Sepsis Management: Continue current antibiotic regimen with Zosyn, ensuring appropriate coverage for potential intra-abdominal infections. Monitor for clinical improvement and adjust antibiotics based on culture results and sensitivity patterns. JASON MILLIGAN III DO February 12, 2025 07:05
[2025-02-12] MEDS: thiamine 100mg/ml 2ml inj. IV SCH (07:22)
[2025-02-12] MEDS: folic acid 1mg/0.2ml inj IV SCH (07:23)
[2025-02-12] MEDS: fludrocortisone acetate 0.1mg tablet NG SCH (07:23)
[2025-02-12] MEDS: insulin regular, human U-100 10ml vial - multi-dose SQ SCH (08:00)
--- NOTE | 2025-02-12 08:50 | PROGRESS NOTE- Residence ---
Progress Note - Resident Providers to CC Resident Creating Document: AXEL KING RES CC: EUGENIO BROWN MD ~ Central Line/PICC still needed: N\A Central Line/PICC Necessity: Prolonged IV access req Bowen-Non Protocol Bowen Indications Met/Not Met: F/C Indications Met Antibiotic Timeout Antibiotic Ordered?: Yes If Yes, Indications: sepsis Subjective off the vasopressors, on sedation with fentanyl and midaz with RASS of -2, TV increased to 450 i/v/o pco2 of 50, ph of 7.29, no fevers Objective Vital Signs Date Time Temp Pulse Resp B/P (MAP) Pulse Ox O2 Delivery O2 Flow Rate FiO2 02/12/25 08:31 18 02/12/25 08:00 98.6 91 94/54 (67) 98 02/12/25 07:42 40 02/11/25 20:00 Mechanical Ventilator 02/11/25 09:00 18.0 Result Diagram: 02/12/25 0250 02/12/25 0250 General: Elderly male, intubated, and sedated Head: Normocephalic with an atraumatic Eyes: Pupils- 3mm, reacting to light, conjunctiva- anicteric Nose and throat: No polyps, septum- normal, no mucosal ulcers Neck: Supple, no lymphadenopathy, no carotid bruit Respiratory: No use of accessory muscles of respiration, Bilateral good air entry Cardiac: S1-S2 heard, rythm regular, no gallop/murmur Abdomen: Distended, distension coming down, left side TANA drain present, dressing done over the abdomen, bowel sounds not heard Extremities: no clubbing, no pedal edema, no deformities, peripheral pulses- 2+ Skin: finger tips-bluish Neuro: not elicited as he is sedated Coagulation Studies Laboratory Tests Test 02/09/25 00:15 Prothrombin Time 12.5 SECONDS (9.0-12.0) H INR International Normalized Ratio 1.2 INR Coagulation Comments Assessment Assessment 84-year-old patient admitted on 02/08, with a PMH of HTN, T2 dm, HDL, hypothyroidism for abdominal pain, nausea and vomitings. He was diagnosed with small-bowel obstruction. He was taken to the OR and had undergone exploratory laparotomy, lysis of adhesions, appendectomy, polypoid resection, closure of enterotomy on 02/08. Later he was transferred to the ICU, his blood pressures has been low and he was started on two vasopressors. ICU team is consulted for further management Plan Plan Respiratory Acute hypoxemic respiratory failure, intubated on 02/10 Respiratory acidosis -on AC/PRVC with 18/450/40/5, -ABG- 7.29/50/75/24, P/F-188, tidal volume increased to 45o for respiratory acidosis -cxr-bilateral lower lobe atelectasis, pulmonary congestion, with mild b/l plefs -daily SBT/SAT GI SBO with peritonitis-secondary to adhesions s/p exploratory laparotomy, lysis of adhesions, appendectomy, polypoid resection, closure of enterotomy on 02/08 -intraabd pressure- 18, suggesting intraabdominal htn -no bm yet -has a TANA drain -to start trickle feeds as per surgeon -management as per surgeon Dr. Hernandez ID Sepsis-POA Likely secondary to peritonitis Suspect GI source WBC-17.1, bandemia reduced, leukocytosis likely suspect secondary to steroids Blood Cultures x2 NGTD Procalcitonin 146>>150 Continue Zosyn 3.[address] Almaraz, ID added iv micafungin on 02/10 continue stress dose steroids IV hydrocortisone 100 mg q.8h and fludrocortisone 0.1 mg once daily startred on 02/10 Cardiovascular Shock likely suspect septic shock -off the vasopressors - monitor to maintain map above 65 Renal REMEDIOS on CKD Suspect ATN, oliguria Metabolic acidosis -baseline creatinine 1.5, creatinine down to 1.9 from 2.2 -uop of 1L yesterday -bicarb-21 -nephrology Dr. Padilla consulted. as per Dr. Padilla, monitor for another 24 hours for BMP and urine output, continue LR at 50 cc per hr Fluid and electrolyte Hyponatremia- resolved -monitor BMP for now Endocrine Type 2 DM with A1c of 6.1 Stress induced hyperglycemia Hypothyroidism h/o Monitor blood glucose to maintain less than 200 high dose Humulin as needed humulin 12U Q6 NELLY, and Lantus 10 units h/s TSH-0.32, no need for levothyroxine Heme-Onc Leukopenia- improved Macrocytic anemia -suspect macrocytic anemia secondary to alcohol intake -monitor CBC EVENTS on 02/10 -patient got intubated -Levophed increased to 0.1, on vasopressin at 0.04 -added micafungin -TPN initiated -bicarb drip DCed -added hydrocortisone, and fludrocortisone events on 10/18 -insulin adjusted for hyperglycemia -LR @ 75cc/hr as per Dr. Padilla -trickle feeds as per Dr. Hernandez -fio2 down to 50 Events on 11/18 -LR reduced to 50 cc/hour -continue trickle feeds, TPN -off the vasopressors Code Status: Full code Analgesia/sedation: Midaz/fentanyl Line/tube: Right IJ central line, right radial artery line, OGT, ETT, Bowen GI prophylaxis: Protonix DVT prophylaxis: Heparin Nutrition: TPN PT/OT/SP: Yes Prognosis: Guarded Disposition: Continue care in ICU Axel King [facility] PGY-2 resident Patient is seen and evaluated during morning rounds, case discussed at morning conference and then during multidisciplinary rounds. Remains critical. I agree with the above assessment and treatment plan. Date of Service: February 12, 2025 Billing Provider: EUGENIO BROWN MD, HARIVARSHA, [facility] February 12, 2025 08:50 EUGENIO BROWN MD February 13, 2025 10:17
[2025-02-12] MEDS ORDERED: POTASSIUM CHLORIDE 20 MEQ/15 ML oral solution NG PRN ×2 (12:15)
[2025-02-12] MEDS: K, MAG and/or Phos replacement - Verify level? MC SCH (12:15)
[2025-02-12] MEDS ORDERED: potassium Cl 40MEQ/1/2NS 520ml 520 ML IV PRN (12:15)
--- NOTE | 2025-02-12 19:03 | PROGRESS NOTE ---
Progress Note ID Providers to CC ~ Progress Note Progress Note: intubated/sedated/vss/abd-distended/labs noted a/p 1. s/p small bowel resection-slow progress/cont supportive care RAFAL ALFARO MD February 12, 2025 19:03
--- NOTE | 2025-02-12 19:28 | PROGRESS NOTE- Residence ---
Progress Note - Resident Providers to CC Resident Creating Document: BARTOLO COPPOLA, REEMA ~ Antibiotic Timeout Antibiotic Ordered?: Yes Subjective Patient has been evaluated at bedside. The patient remains under mechanical ventilation Objective Vital Signs Date Time Temp Pulse Resp B/P (MAP) Pulse Ox O2 Delivery O2 Flow Rate FiO2 02/12/25 17:56 99.1 89 23 112/66 (81) 98 02/12/25 17:29 35 02/12/25 08:00 Mechanical Ventilator 02/11/25 09:00 18.0 Physical exam: General: The patient currently under sedation due to mechanical ventilation. HEENT: Conjunctive are pink, sclerae clear, no icterus, pupil is equal in both sides, reactive to light, no ear discharge, no pharyngeal erythema or an edema. Neck: Supple, no JVD, no lymphadenopathy and thyromegaly. Chest: Equal air entry on both lungs, no additional sounds no rhonchi no wheezing at the moment. Presence of scar in the midline of the chest and abdomen from previous surgery. Cardiovascular: S1-S2 regular sinus rhythm and, regular rate, presence of systolic murmur best heard in the 2nd right intercostal space. Abdomen: Distended, presence of clean dressing and drain in the level of the lower abdomen. Extremities: No obvious deformities, no pitting edema bilaterally, capillary refill intact, peripheral pulsations are intact on both sides, currently with Bowen catheter. Central Nervous System: Currently under sedation due to mechanical ventilation. Musculoskeletal: No joint swelling, deformities, inflammations, and no scoliosis and back tenderness Skin: Warm and dry. Result Diagram: 02/12/25 0250 02/12/25 1154 Coagulation Studies Laboratory Tests Test 02/09/25 00:15 Prothrombin Time 12.5 SECONDS (9.0-12.0) H INR International Normalized Ratio 1.2 INR Coagulation Comments Assessment Assessment 84-year-old male patient came to the hospital with chief complaint of abdominal pain. Plan Plan Acute hypoxemic respiratory failure: Non-anion gap metabolic acidosis: The patient underwent intubation on 02/10/2025 due to increased oxygen demand. Patient is currently under mechanical ventilation. FiO2 40. ABG: PH 7.261, pCO2 495, HC03 22.7. Anion gap 8. Chest x-ray: Pulmonary venous congestion. Daily SVT/SAT. Septic shock likely secondary to small-bowel obstruction with peritonitis: POA: S/p exploratory laparotomy, lysis of adhesions, appendectomy, polypoid resection, closure of enterotomy: POD: 1 The patient came to the hospital with chief complaint of abdominal pain, throbbing type, 8/10 in intensity radiation from epigastrium to lower abdomen. On physical exam distended abdomen is evidenced, high-pitched bowel sounds are noticed in the right side of the abdomen. Absent bowel sounds in the left side. Tenderness in the left lower abdomen. Abdominal x-ray: Normal positioning of the enteric tube. CT abdominal scan: Findings consistent with small-bowel obstruction as described above. Scattered colonic diverticula without adjacent inflammatory changes to suggest diverticulitis. Bilateral renal cysts. Smaller right renal lesion is indeterminate, possibly a complex cyst, although solid lesion not excluded. Further evaluation with renal mass protocol CT or MRI could be obtained. Moderate bilateral fat containing inguinal hernias. Cholelithiasis. Intra-abdominal pressure-14, intra-abdominal hypertension. Management as per Dr. Hernandez. Currently off of pressors. On Zosyn IV t.i.d. Added micafungin by Infectious Disease specialist Dr. Almaraz. On 02/10. Continue stress dose steroids fludrocortisone 100 mg q.8h IV and hydrocortisone 0.1 mg daily. Started on 02/10. Acute kidney injury on CKD likely secondary to renal tubular stasis: Suspected ATN, oliguria: Baseline creatinine 1.5, creatinine trending down. Creatinine 2.00, BUN/creatinine ratio 28.5. Nephrology Dr. Padilla recommended at LR at 75 mL/hour, monitor 24 hours for BMP and urine output. Alcohol use disorder: The patient admits drinking 1 oz of trisha with coke everyday for at least 45 years. Alcohol withdrawal protocol in place. Folic acid 1 mg IV daily. Thiamine 200 mg IV t.i.d. Currently under sedation. Hypertension: Current blood pressure 114/75. Currently of pressors. Hyperglycemia: Diabetes mellitus: Glucose levels of 187. Hemoglobin A1c 6.1. On Humulin sliding scale. Hypothyroidism: TSH 0.32. Discontinued levothyroxine. Dyslipidemia: Triglycerides 168, cholesterol 188, LDL 105, HDL 56 Code status: Full code DVT prophylaxis: Heparin Analgesia/sedation: Midazolam/fentanyl Line/tube: Right IJ central line, right radial artery line, OGT, ETT, Bowen GI prophylaxis: Protonix IV. Nutrition: TPN PT: Yes Prognosis: Guarded Disposition: We will assume care after the patient is downgraded from ICU. Continue management as per Dr. Hernandez and neurology physician. Bartolo Katz Internal Medicine Resident [facility] Date of Service: February 12, 2025 Billing Provider: AFUA GUTIERREZ MD Common Visit Codes: [id number] INP/OBS CARE(MOD) BARTOLO COPPOLA, RES February 12, 2025 19:28 AFUA GUTIERREZ MD February 12, 2025 20:18
[2025-02-12] MEDS: ZINC/COPPER/MANGANESE/SELENIUM 1 ML, chromic chloride inj. 10 MCG, MVI, adult No.4 with... IV SCH (21:24)
[2025-02-12] MEDS: insulin glargine (Lantus) pen - multi-dose SQ SCH (21:29)
[2025-02-12] MEDS: rivaroxaban 10mg tablet NG SCH (22:08)
--- NOTE | 2025-02-12 22:41 | PROGRESS NOTE ---
Progress Note Dictate Providers to CC ~ Progress Note: Telemed Critical Care Central Line/PICC still needed: Yes Central Line/PICC Necessity: Irritate solution deliver Bowen Indications Met/Not Met: F/C Indications Met Antibiotic Ordered?: Yes If Yes, Indications: Sepsis, peritonitis. MRSA Education MRSA Education Provided to pt: N/A Subjective Subjective Cannot be obtained. Objective Vitals Vital Signs Date Time Temp Pulse Resp B/P (MAP) Pulse Ox O2 Delivery O2 Flow Rate FiO2 02/12/25 21:47 90 23 98 30 02/12/25 19:00 99.1 131/68 (89) 02/12/25 08:00 Mechanical Ventilator 02/11/25 09:00 18.0 Lab Results: 02/12/25 0250 02/12/25 1154 Coagulation Studies Laboratory Tests Test 02/09/25 00:15 Prothrombin Time 12.5 SECONDS (9.0-12.0) H INR International Normalized Ratio 1.2 INR Coagulation Comments Counseling Services Smoking & Tobacco Cessation: N/A Advance Care Planning Advanced Care planning: N/A Problem\Assessment\Plan Problems/Diagnosis: (1) Septic shock (2) Peritonitis (3) Small bowel obstruction (4) Respiratory failure (5) REMEDIOS (acute kidney injury) Assessment & Plan: Patient appears euvolemic. Continue vasopressor support. On broad-spectrum IVAB. Continue other supportive care. Patient was seen using HIPAA-compliant technology. Critical care time: 41 minutes Problem Qualifiers (1) Respiratory failure: Qualified Codes: J96.00 - Acute respiratory failure, unspecified whether with hypoxia or hypercapnia DANIELA ARAUJO MD February 12, 2025 22:41
[2025-02-13] VITALS (37 sets, daily range): BP systolic 120–173; BP diastolic 58–96; PULSE 83–113; RESP 21–33; O2SAT 92–97
[2025-02-13 02:31] LABS: EOSINOPHILS % (AUTO) 0.1 % (0-6); HEMOGLOBIN 9.6 g/dl (14.0-17.9); LYMPHOCYTES # (AUTO) 0.2 X10'3 (1.1-4.8); MONOCYTES # (AUTO) 0.5 X10'3 (0-0.9); RED CELL DISTRIBUTION WIDTH 13.6 % (11.5-14.5)
[2025-02-13 02:35] LABS: BASOPHILS % (AUTO) 0.1 % (0-1); HEMATOCRIT 28.9 % (42.0-52.0); LYMPHOCYTES % (AUTO) 0.8 % (21-51); MEAN CORPUSCULAR HEMOGLOBIN 32.3 PG (27.0-31.0); MEAN CORPUSCULAR HGB CONC 33.2 g/dL (33.0-36.5); MEAN CORPUSCULAR VOLUME 97.4 FL (78-98); MONOCYTES % (AUTO) 2.3 % (2-12); NEUTROPHILS # (AUTO) 21.7 X10'3 (1.8-7.7); NEUTROPHILS % (AUTO) 96.7 % (42-75); RED BLOOD COUNT 2.96 X10'6 (4.70-6.10)
[2025-02-13 02:49] LABS: ABG BASE EXCESS -5.1 mmol/L (-2.0-3.0); ABG HCO3 19.8 mmol/L (21.0-28.0); ABG OXYGEN SATURATION 93.8 % (94.0-98.0); ABG PCO2 (T) 36.2 mmHg (35.0-48.0); ABG PH (T) 7.357 (7.350-7.450); ABG PO2 (T) 69.5 mmHg (83.0-108.0); ALLEN'S TEST Modified; FCOHb 0.6 % (0.5-1.5); FHHb 6.1 % (0.0-5.0); FMetHb 0.3 % (0.0-1.5); MODE VENT - PRVC; PATIENT TEMPERATURE 37.1; PEEP 5 cm H2O; RESPIRATORY RATE 18 b/min; TIDAL VOLUME 450 mL; TOTAL HEMOGLOBIN 10.2 G/dl (13.5-17.5)
[2025-02-13 02:52] LABS: ALANINE AMINOTRANSFERASE 32 U/L (12-78); ALBUMIN 1.6 G/DL (3.4-5.0); ALBUMIN/GLOBULIN RATIO 0.5 (1.1-1.5); ALKALINE PHOSPHATASE 137 IU/L (46-116); ANION GAP 7 (8-16); ASPARTATE AMINO TRANSFERASE 33 U/L (10-37); BILIRUBIN,TOTAL 0.7 MG/DL (0.1-1.0); BLOOD UREA NITROGEN 98 MG/DL (7-18); BUN/CREATININE RATIO 52.4 (10.0-20.0); CALCIUM 7.8 MG/DL (8.5-10.1); CHLORIDE 104 MMOL/L (99-107); CREATININE 1.87 MG/DL (0.60-1.10); GLUCOSE 262 MG/DL (70-104); PHOSPHORUS 1.6 MG/DL (2.3-4.5); POTASSIUM 3.4 MMOL/L (3.5-5.1); SODIUM 136 MMOL/L (135-145); TOTAL PROTEIN 4.8 G/DL (6.4-8.2); eCRCL 29 ML/MIN; eGFR 34 ML/MIN
[2025-02-13 03:24] LABS: ANISOCYTOSIS 1+; PLATELET ESTIMATE DECREASED; TOTAL CELLS COUNTED 100
[2025-02-13 03:27] LABS: PLATELET COUNT 48 X10'3 (140-440)
[2025-02-13] MEDS: potassium Cl 40MEQ/270ML bag 270 ML IV PRN (04:43)
--- NOTE | 2025-02-13 06:21 | RADIOLOGY REPORT ---
CHEST RADIOGRAPH Indication: ET Tube PLacement Technique: Single frontal view of the chest was obtained COMPARISON: DI CHEST,SINGLE VIEW on DOS: 02/12/25, DI CHEST,SINGLE VIEW on DOS: 02/11/25, DI CHEST,SINGLE VIEW on DOS: 02/10/25, DI CHEST,SINGLE VIEW on DOS: 02/09/25, DI CHEST,SINGLE VIEW on DOS: 02/08/25 FINDINGS: Lines and Tubes: Endotracheal tube, enteric catheter and right central venous catheter in satisfactor y position. Median sternotomy. Lungs: Multifocal airspace disease. Pleura: Small bilateral pleural effusions. No pneumothorax. Cardiomediastinal contours: Cardiomegaly Bones: Unremarkable IMPRESSION: Lines and tubes in satisfactory position. No significant interval change.
--- NOTE | 2025-02-13 06:49 | PROGRESS NOTE ---
Progress Note Dictate Providers to CC ~ Antibiotic Ordered?: Yes Subjective Subjective Doing well overnight, FiO2 30%, TV increased 450-550, PEEP 5, good UOP, creatinine slightly improved Objective Vitals Vital Signs Date Time Temp Pulse Resp B/P (MAP) Pulse Ox O2 Delivery O2 Flow Rate FiO2 02/13/25 11:19 112 33 94 30 02/13/25 06:00 98.1 165/84 (111) 02/12/25 20:00 Mechanical Ventilator 02/11/25 09:00 18.0 General: Ill appearing, intubated, ventilated Neck: Supple, without JVD Heart: Regular rate and rhythm, no murmur Lungs: Clear to auscultation and percussion Abdomen: Bowel sounds decreased, no tenderness, organomegaly, masses, or hernia Extremities: No cyanosis, trace edema, peripheral pulses intact Neurologic: Sensation to touch, normal. DTRs normal moves all extremities spontaneously. Lab Results: 02/13/25 0209 02/13/25 0209 Coagulation Studies Laboratory Tests Test 02/09/25 00:15 Prothrombin Time 12.5 SECONDS (9.0-12.0) H INR International Normalized Ratio 1.2 INR Coagulation Comments Other Results I & O 02/13/25 07:00 Intake Total 4352.35 ml Output Total 2403 ml Balance 1949.35 ml IV Total 4092.35 ml Tube Feeding 260 ml Output Urine Total 1873 ml Drainage Total 530 ml Problem\Assessment\Plan Problems/Diagnosis: (1) REMEDIOS (acute kidney injury) Assessment & Plan: Acute Kidney Injury (REMEDIOS): He demonstrates REMEDIOS, likely multifactorial due to perioperative factors, hypovolemia, sepsis, previous pressor need. Creatinine had initially risen from 2.0 to 2.21 mg/dL, some improvement, now worsening overnight from 1.91 to 1.87, with significant oliguria initially now improved, near 1.8L urine output in 24 hours). Elevated lactic acid (2.3 mmol/L) yesterday, likely tissue hypoperfusion, acidemia resolved Fluid Management: Carefully balance IV fluid administration to optimize renal perfusion while avoiding fluid overload, especially given the use of vasopressors. More edematous today, not severe, will discontinue LR for the next 24 hours, with frequent reassessment of volume status, hemodynamics, and urine output. I would expect good UOP for the next 24 hours, if we limit intake, we should be a little more negative on our balance without sacrificing renal function. If renal function continues to improve and creatinine below 1.5, consider cautious use of diuretics if indicated Renal Monitoring and Management: Follow KDIGO guidelines for REMEDIOS management. Monitor renal function (BUN, creatinine) and electrolytes closely. Evaluate for potential initiation of renal replacement therapy (COMMUNITY ORGANIZATION DIRECTOR) daily, start if there is a trend of worsening renal function, refractory metabolic acidosis, hyperkalemia, or fluid overload. (2) Leukopenia Assessment & Plan: Intermittent, most consistent with critical illness, continue monitoring (3) Hemodynamic instability Assessment & Plan: Hemodynamic Instability: He is is off vasopressors (vasopressin, norepinephrine), indicating improved hemodynamic stability, initially contributing to renal hypoperfusion and further complicating his renal recovery. Vasopressor Management: Work with the critical care team to optimize vasopressor support, and IVF management, aiming to improve mean arterial pressure (MAP) and renal perfusion. Adjust vasopressor dosing as necessary based on hemodynamic monitoring and fluid status. (4) Infection Assessment & Plan: Infection and Sepsis Management: Continue current antibiotic regimen with Zosyn, ensuring appropriate coverage for potential intra-abdominal infections. Monitor for clinical improvement and adjust antibiotics based on culture results and sensitivity patterns. JASON MILLIGAN III DO February 13, 2025 06:49
[2025-02-13] MEDS ORDERED: HYDROmorphone 1 mg/ml syringe IV PRN ×2 (08:00→13:15)
[2025-02-13 08:13] LABS: MAGNESIUM 2.4 MG/DL (1.5-2.4)
[2025-02-13] MEDS ORDERED: dextrose 50%-water 50ml dispensing syringe IV PRN (09:35)
--- NOTE | 2025-02-13 10:24 | PROGRESS NOTE ---
Subjective Subjective Patient has been evaluated at bedside. The patient remains on mechanical ventilation. Reason for visit: Pulmonary/critical care follow-up Reviewed: Care Plan, H&P, Labs, Medications, Radiology Review of Systems Changes from previous H/P or p: No Changes Daily Progress Note Exam Vitals Vital Signs Date Time Temp Pulse Resp B/P (MAP) Pulse Ox O2 Delivery O2 Flow Rate FiO2 02/13/25 09:22 100 31 95 30 02/13/25 06:00 98.1 165/84 (111) 02/12/25 20:00 Mechanical Ventilator 02/11/25 09:00 18.0 Result Diagram: 02/13/25 0209 02/13/25 020 Exam General: Elderly male, intubated, and sedated Head: Normocephalic with an atraumatic Eyes: Pupils- 3mm, reacting to light, conjunctiva- anicteric Nose and throat: No polyps, septum- normal, no mucosal ulcers Neck: Supple, no lymphadenopathy, no carotid bruit Respiratory: No use of accessory muscles of respiration, Bilateral good air entry Cardiac: S1-S2 heard, rythm regular, no gallop/murmur Abdomen: Distended, distension coming down, left side TANA drain present, dressing done over the abdomen, bowel sounds not heard Extremities: no clubbing, no pedal edema, no deformities, peripheral pulses- 2+ Skin: Unremarkable Neuro: not elicited as he is sedated Results Coagulation Studies Laboratory Tests Test 02/09/25 00:15 Prothrombin Time 12.5 SECONDS (9.0-12.0) H INR International Normalized Ratio 1.2 INR Coagulation Comments VTE VTE Risk Score VTE Risk Score Reference Ranges: Score 0-1 = Low Risk (Aggressive mobilization; early ambulation; no VTE prophylaxis required) Score 2: Moderate Risk (Intermittent/Pneumatic Compression Device OR Lovenox/Heparin/Coumadin) Score 3-4: High Risk (Intermittent/Pneumatic Compression Device AND Lovenox/Heparin/Coumadin) Score > or = 5: Highest Risk (Intermittent/Pneumatic Compression Device AND Lovenox/Heparin/Coumadin) Assessment/Plan Assessment 84-year-old male patient came to the hospital with chief complaint of abdominal pain. Plan Respiratory Acute hypoxemic respiratory failure, intubated on 02/10 Well compensated metabolic acidosis -on AC/PRVC with 18/450/40/5, -ABG- 7.357/36.2/69.5/19 for a/-5.1/93%/30% FiO2. -cxr-bilateral lower lobe atelectasis/pleural effusions, pulmonary congestion, with mild b/l plefs -sedation has been interrupted to facilitate an SAT/SBT GI SBO with peritonitis-secondary to adhesions s/p exploratory laparotomy, lysis of adhesions, appendectomy, polypoid resection, closure of enterotomy on 02/08 -intraabd pressure- 18, suggesting intraabdominal htn -no bm yet -has a TANA drain -to start trickle feeds as per surgeon -management as per surgeon Dr. Mary GAINES Sepsis-POA Likely secondary to peritonitis Suspect GI source WBC-17.1, bandemia reduced, leukocytosis likely suspect secondary to steroids Blood Cultures x2 NGTD Procalcitonin 146>>150 Continue Zosyn 3.[address] Almaraz, ID added iv micafungin on 02/10 continue stress dose steroids IV hydrocortisone 100 mg q.8h and fludrocortisone 0.1 mg once daily startred on 02/10 Cardiovascular Shock likely suspect septic shock -off the vasopressors - monitor to maintain map above 65 Renal REMEDIOS on CKD Suspect ATN, oliguria Metabolic acidosis -baseline creatinine 1.5, current creatinine is 1.87. -uop of 1.903L over the past 24 hours. -bicarb-25 -nephrology Dr. Padilla consulted. as per Dr. Padilla, monitor for another 24 hours for BMP and urine output, continue LR at 50 cc per hr Fluid and electrolyte Hyponatremia- resolved -monitor BMP for now Endocrine Type 2 DM with A1c of 6.1 Stress induced hyperglycemia and serum glucose poorly controlled. Hypothyroidism h/o Monitor blood glucose to maintain between 140-180 mg/dL Initiate insulin drip today. TSH-0.32, no need for levothyroxine Heme-Onc Pancytopenia suggesting myelosuppression. Leukopenia- recurrent Macrocytic anemia -suspect macrocytic anemia secondary to alcohol intake -monitor CBC EVENTS on 02/10 -patient got intubated -Levophed increased to 0.1, on vasopressin at 0.04 -added micafungin -TPN initiated -bicarb drip DCed -added hydrocortisone, and fludrocortisone events on 10/18 -insulin adjusted for hyperglycemia -LR @ 75cc/hr as per Dr. Padilla -trickle feeds as per Dr. Hernandez -fio2 down to 50 Events on 11/18 -LR reduced to 50 cc/hour -continue trickle feeds, TPN -off the vasopressors Code Status: Full code Analgesia/sedation: Midaz/fentanyl Line/tube: Right IJ central line, right radial artery line, OGT, ETT, Bowen GI prophylaxis: Protonix DVT prophylaxis: Heparin Nutrition: TPN PT/OT/SP: Yes Prognosis: Guarded Disposition: Continue care in ICU Critical care time 35 minutes. Expected Outcome/Goals Expected Outcomes/Goals: Tolerance to TPN, tolerance to TF, wean TPN and advance TF, wt maintenance, bowel regularity, surgical wound healing EUGENIO BROWN MD February 13, 2025 10:24
[2025-02-13] MEDS: Insulin Reg/NS 100units/100mL 100 ML IV SCH (11:11)
--- NOTE | 2025-02-13 14:02 | PROGRESS NOTE ---
Progress Note ID Providers to CC ~ Progress Note Progress Note: sedated/vss/abd-distended/labs noted a/p 1. s/p small bowel resection mica-slow progress/cont supportive care-advance tf when gi function returns RAFAL ALFARO MD February 13, 2025 14:02
[2025-02-13] MEDS: INSULIN LISPRO 100 UNIT/ML INSULN.PEN MULTI-DOSE SQ PRN (14:48)
--- NOTE | 2025-02-13 15:39 | PROGRESS NOTE- Residence ---
Progress Note - Resident Providers to CC Resident Creating Document: CHEKO COPPOLA RES ~ Antibiotic Timeout Antibiotic Ordered?: Yes Subjective Patient has been evaluated at bedside. The patient remains on mechanical ventilation. Objective Vital Signs Date Time Temp Pulse Resp B/P (MAP) Pulse Ox O2 Delivery O2 Flow Rate FiO2 02/13/25 14:19 Mechanical Ventilator 30 02/13/25 13:00 98.8 105 27 153/76 (101) 94 30.0 Physical exam: General: The patient currently under sedation due to mechanical ventilation. HEENT: Conjunctive are pink, sclerae clear, no icterus, pupil is equal in both sides, reactive to light, no ear discharge, no pharyngeal erythema or an edema. Neck: Supple, no JVD, no lymphadenopathy and thyromegaly. Chest: Equal air entry on both lungs, no additional sounds no rhonchi no wheezing at the moment. Presence of scar in the midline of the chest and abdomen from previous surgery. Cardiovascular: S1-S2 regular sinus rhythm and, regular rate, presence of systolic murmur best heard in the 2nd right intercostal space. Abdomen: Distended, presence of clean dressing and drain in the level of the lower abdomen. Extremities: No obvious deformities, no pitting edema bilaterally, capillary refill intact, peripheral pulsations are intact on both sides, currently with Bowen catheter. Central Nervous System: Currently under sedation due to mechanical ventilation. Musculoskeletal: No joint swelling, deformities, inflammations, and no scoliosis and back tenderness Skin: Warm and dry. Result Diagram: 02/13/25 0209 02/13/25 0209 Coagulation Studies Laboratory Tests Test 02/09/25 00:15 Prothrombin Time 12.5 SECONDS (9.0-12.0) H INR International Normalized Ratio 1.2 INR Coagulation Comments Assessment Assessment 84-year-old male patient came to the hospital with chief complaint of abdominal pain. Plan Plan Acute hypoxemic respiratory failure: Non-anion gap metabolic acidosis: The patient underwent intubation on 02/10/2025 due to increased oxygen demand. Patient is currently under mechanical ventilation. FiO2 40. ABG: PH 7.261, pCO2 495, HC03 22.7. Anion gap 8. CXR: bilateral lower lobe atelectasis/pleural effusions, pulmonary congestion, with mild b/l plefs Sedation has been interrupted to facilitate an SAT/SBT Septic shock likely secondary to small-bowel obstruction with peritonitis: POA: S/p exploratory laparotomy, lysis of adhesions, appendectomy, polypoid resection, closure of enterotomy: POD: 1 The patient came to the hospital with chief complaint of abdominal pain, throbbing type, 8/10 in intensity radiation from epigastrium to lower abdomen. On physical exam distended abdomen is evidenced, high-pitched bowel sounds are noticed in the right side of the abdomen. Absent bowel sounds in the left side. Tenderness in the left lower abdomen. Abdominal x-ray: Normal positioning of the enteric tube. CT abdominal scan: Findings consistent with small-bowel obstruction as described above. Scattered colonic diverticula without adjacent inflammatory changes to suggest diverticulitis. Bilateral renal cysts. Smaller right renal lesion is indeterminate, possibly a complex cyst, although solid lesion not excluded. Further evaluation with renal mass protocol CT or MRI could be obtained. Moderate bilateral fat containing inguinal hernias. Cholelithiasis. Intra-abdominal pressure-14, intra-abdominal hypertension. Management as per Dr. Hernandez. Currently off of pressors. On Zosyn IV t.i.d. Added micafungin by Infectious Disease specialist Dr. Almaraz. On 02/10. Continue stress dose steroids fludrocortisone 100 mg q.8h IV and hydrocortisone 0.1 mg daily. Started on 02/10. Acute kidney injury on CKD likely secondary to renal tubular stasis: Suspected ATN, oliguria: Baseline creatinine 1.5, creatinine trending down. Creatinine 2.00, BUN/creatinine ratio 28.5. Nephrology Dr. Padilla recommended at LR at 75 mL/hour, monitor 24 hours for BMP and urine output. Alcohol use disorder: The patient admits drinking 1 oz of trisha with coke everyday for at least 45 years. Alcohol withdrawal protocol in place. Folic acid 1 mg IV daily. Thiamine 200 mg IV t.i.d. Currently under sedation. Hypertension: Current blood pressure 114/75. Currently of pressors. Hyperglycemia: Diabetes mellitus: Glucose levels of 187. Hemoglobin A1c 6.1. On Humulin sliding scale. Hypothyroidism: TSH 0.32. Discontinued levothyroxine. Dyslipidemia: Triglycerides 168, cholesterol 188, LDL 105, HDL 56 Code status: Full code DVT prophylaxis: Heparin Analgesia/sedation: Midazolam/fentanyl Line/tube: Right IJ central line, right radial artery line, OGT, ETT, Bowen GI prophylaxis: Protonix IV. Nutrition: TPN PT: Yes Prognosis: Guarded Disposition: We will assume care after the patient is downgraded from ICU. Continue management as per Dr. Hernandez and utility sales and service manager. Cheko Katz Internal Medicine Resident [facility] Date of Service: February 13, 2025 Billing Provider: JOHN CARDOSO MD Common Visit Codes: [id number] INP/OBS CARE(HIGH) CHEKO COPPOLA, RES February 13, 2025 15:39 JOHN CARDOSO MD February 15, 2025 14:31
[2025-02-13 18:12] LABS: MAGNESIUM 2.4 MG/DL (1.5-2.4); PHOSPHORUS 2.3 MG/DL (2.3-4.5)
[2025-02-13 18:14] LABS: POTASSIUM 3.4 MMOL/L (3.5-5.1)
--- NOTE | 2025-02-13 21:14 | PROGRESS NOTE ---
Progress Note Dictate Providers to CC CC: AVE OSBORNE MD ~ Progress Note: i was called by the nurse regarding Mr Jimena's blood pressure running in the 170-190 sbp MAP 109 Also tachy with HR of 101 on Fentanyl and Versed Insulin and TPN Rhythm is sinus with occ bigeminy I asked for 5mg of Metoprolol once Antibiotic Ordered?: No MRSA Education MRSA Education Provided to pt: No (not indicated ) Objective Vitals Vital Signs Date Time Temp Pulse Resp B/P (MAP) Pulse Ox O2 Delivery O2 Flow Rate FiO2 02/13/25 20:02 95 27 95 30 02/13/25 20:00 Mechanical Ventilator 02/13/25 20:00 99.0 168/73 (104) 30.0 Lab Results: 02/13/25 0209 02/13/25 1750 Coagulation Studies Laboratory Tests Test 02/09/25 00:15 Prothrombin Time 12.5 SECONDS (9.0-12.0) H INR International Normalized Ratio 1.2 INR Coagulation Comments Problem\Assessment\Plan Additional Plan 5mg of Metoprolol IV ordered once continue to monitor BP and other hemodynamics. Sepsis Screening Reassessment Date: February 13, 2025 VAE OSBORNE MD February 13, 2025 21:14
[2025-02-13] MEDS: metoprolol tartrate 1mg/ml inj IV ONE (21:37)
[2025-02-14] VITALS (35 sets, daily range): BP systolic 102–189; BP diastolic 46–79; PULSE 81–104; RESP 18–31; O2SAT 89–98
[2025-02-14 02:26] LABS: HEMOGLOBIN 10.1 g/dl (14.0-17.9); LYMPHOCYTES # (AUTO) 0.3 X10'3 (1.1-4.8); MEAN CORPUSCULAR HGB CONC 33.2 g/dL (33.0-36.5); MONOCYTES # (AUTO) 0.7 X10'3 (0-0.9); MONOCYTES % (AUTO) 2.7 % (2-12); PLATELET COUNT 65 X10'3 (140-440)
[2025-02-14 02:28] LABS: BASOPHILS # (AUTO) 0.1 X10'3 (0-0.2); BASOPHILS % (AUTO) 0.3 % (0-1); EOSINOPHILS % (AUTO) 0.1 % (0-6); HEMATOCRIT 30.5 % (42.0-52.0); MEAN CORPUSCULAR HEMOGLOBIN 32.1 PG (27.0-31.0); MEAN CORPUSCULAR VOLUME 96.8 FL (78-98); MEAN PLATELET VOLUME 9.9 FL (7.4-10.4); NEUTROPHILS # (AUTO) 24.2 X10'3 (1.8-7.7); NEUTROPHILS % (AUTO) 95.9 % (42-75); RED BLOOD COUNT 3.15 X10'6 (4.70-6.10)
[2025-02-14 02:37] LABS: WHITE BLOOD COUNT 25.2 X10'3 (4.5-11.0)
[2025-02-14 02:41] LABS: ALANINE AMINOTRANSFERASE 90 U/L (12-78); ALBUMIN 1.5 G/DL (3.4-5.0); ALBUMIN/GLOBULIN RATIO 0.4 (1.1-1.5); ALKALINE PHOSPHATASE 216 IU/L (46-116); ANION GAP 10 (8-16); ASPARTATE AMINO TRANSFERASE 76 U/L (10-37); BILIRUBIN,TOTAL 1.4 MG/DL (0.1-1.0); BLOOD UREA NITROGEN 114 MG/DL (7-18); CALCIUM 8.2 MG/DL (8.5-10.1); CHLORIDE 107 MMOL/L (99-107); CREATININE 1.87 MG/DL (0.60-1.10); GLUCOSE 236 MG/DL (70-104); SODIUM 139 MMOL/L (135-145); TOTAL PROTEIN 4.9 G/DL (6.4-8.2); eCRCL 29 ML/MIN; eGFR 34 ML/MIN
[2025-02-14 02:48] LABS: NUCLEATED RED BLOOD CELLS 1 /100WBC (0-0); PLATELET ESTIMATE DECREASED; TOTAL CELLS COUNTED 100
[2025-02-14 02:49] LABS: ANISOCYTOSIS 1+
[2025-02-14 03:08] LABS: POTASSIUM 3.6 MMOL/L (3.5-5.1)
[2025-02-14 03:09] LABS: ABG BASE EXCESS -6.5 mmol/L (-2.0-3.0); ABG HCO3 18.1 mmol/L (21.0-28.0); ABG OXYGEN SATURATION 94.9 % (94.0-98.0); ABG PCO2 (T) 33.5 mmHg (35.0-48.0); ABG PH (T) 7.353 (7.350-7.450); ABG PO2 (T) 76.2 mmHg (83.0-108.0); FCOHb 0.8 % (0.5-1.5); FMetHb 0.3 % (0.0-1.5); FO2Hb 93.9 % (94.0-98.0); MODE VENT - prvc; PATIENT TEMPERATURE 37.5; PEEP 5 cm H2O; RESPIRATORY RATE 18 b/min; TIDAL VOLUME 450 mL; TOTAL HEMOGLOBIN 10.8 G/dl (13.5-17.5)
--- NOTE | 2025-02-14 06:01 | RADIOLOGY REPORT ---
CHEST RADIOGRAPH Indication: ET Tube PLacement Technique: Single frontal view of the chest was obtained COMPARISON: DI CHEST,SINGLE VIEW on DOS: 02/13/25, DI CHEST,SINGLE VIEW on DOS: 02/12/25, DI CHEST,SINGLE VIEW on DOS: 02/11/25, DI CHEST,SINGLE VIEW on DOS: 02/10/25, DI CHEST,SINGLE VIEW on DOS: 02/09/25 FINDINGS: Lines and Tubes: Unchanged. Lungs: Grossly stable appearing bilateral pleural effusions. No evidence of focal consolidation. No pneumothorax. Cardiomediastinal contours: Unremarkable Bones: Unremarkable IMPRESSION: 1. Stable bilateral pleural effusions. 2. Lines and tubes unchanged.
[2025-02-14 07:25] LABS: MAGNESIUM 2.4 MG/DL (1.5-2.4)
[2025-02-14 07:26] LABS: PHOSPHORUS 1.7 MG/DL (2.3-4.5)
[2025-02-14] MEDS: ringers solution, lacted 1,000 ML IV SCH (07:55)
[2025-02-14 08:31] LABS: BASOPHILS # (AUTO) 0.1 X10'3 (0-0.2); BASOPHILS % (AUTO) 0.3 % (0-1); EOSINOPHILS % (AUTO) 0 % (0-6); HEMOGLOBIN 10.2 g/dl (14.0-17.9); LYMPHOCYTES # (AUTO) 0.3 X10'3 (1.1-4.8); LYMPHOCYTES % (AUTO) 1.3 % (21-51); MEAN CORPUSCULAR HEMOGLOBIN 33.1 PG (27.0-31.0); MEAN CORPUSCULAR HGB CONC 34.1 g/dL (33.0-36.5); MEAN PLATELET VOLUME 9.6 FL (7.4-10.4); MONOCYTES # (AUTO) 0.8 X10'3 (0-0.9); MONOCYTES % (AUTO) 3.1 % (2-12); NEUTROPHILS # (AUTO) 25.4 X10'3 (1.8-7.7); NEUTROPHILS % (AUTO) 95.3 % (42-75); PLATELET COUNT 65 X10'3 (140-440); RED CELL DISTRIBUTION WIDTH 13.8 % (11.5-14.5)
[2025-02-14 08:34] LABS: WHITE BLOOD COUNT 26.6 X10'3 (4.5-11.0)
[2025-02-14 08:47] LABS: PLATELET ESTIMATE DECREASED; TOTAL CELLS COUNTED 100
--- NOTE | 2025-02-14 08:52 | PROGRESS NOTE ---
Progress Note Dictate Providers to CC ~ Antibiotic Ordered?: Yes Subjective Subjective No new events overnight, still intubated, sedated, no indication for CVVH today, creatinine plateaued today, excellent UOP, 2835 mL Objective Vitals Vital Signs Date Time Temp Pulse Resp B/P (MAP) Pulse Ox O2 Delivery O2 Flow Rate FiO2 02/14/25 07:25 101 20 92 30 02/14/25 07:05 99.5 151/62 (91) Mechanical Ventilator 30.0 Intubated RRR w/o murmur Ventilator breath sounds Decreased BS, mild distension, post surgical 1+ edema, improved Lab Results: 02/14/25 0800 02/14/25 0212 Coagulation Studies Laboratory Tests Test 02/09/25 00:15 Prothrombin Time 12.5 SECONDS (9.0-12.0) H INR International Normalized Ratio 1.2 INR Coagulation Comments Other Results I & O 02/14/25 06:59 Intake Total 3298.34 ml Output Total 3335 ml Balance -36.66 ml IV Total 3048.34 ml Tube Feeding 250 ml Output Urine Total 2820 ml Drainage Total 515 ml Problem\Assessment\Plan Problems/Diagnosis: (1) REMEDIOS (acute kidney injury) Assessment & Plan: Acute Kidney Injury (REMEDIOS): He demonstrates REMEDIOS, likely multifactorial due to perioperative factors, hypovolemia, sepsis, previous pressor need. Creatinine had initially risen from 2.0 to 2.21 mg/dL, some improvement, no worsening overnight same as yesterday 1.87, with significant oliguria initially, now improved, near 2.85 L urine output in 24 hours). This is consistent with post ATN polyuria, this will be helpful Elevated lactic acid (2.3 mmol/L) initially, likely tissue hypoperfusion, acidemia resolved Fluid Management: Carefully balance IV fluid administration to optimize renal perfusion while avoiding fluid overload, especially given the use of vasopressors. Les edematous today, not severe, discontinued LR yesterday, renal function plateaued at creatinine 1.87, continue to hold IVF again today, with frequent reassessment of volume status, hemodynamics, and urine output. I would expect good UOP again for the next 24 hours, if we limit intake, we should be a little more negative on our balance without sacrificing additional renal function. Our goal is no dialysis. If renal function continues to improve and creatinine below 1.5, consider cautious use of diuretics if indicated Renal Monitoring and Management: Follow KDIGO guidelines for REMEDIOS management. Monitor renal function (BUN, creatinine) and electrolytes closely. Evaluate for potential initiation of renal replacement therapy (SCREEN PRINTING PASTER) daily, start if there is a trend of worsening renal function, refractory metabolic acidosis, hyperkalemia, or fluid overload. (2) Leukopenia Assessment & Plan: Intermittent, most consistent with critical illness, continue monitoring, WBC elevated today, higher than expected for his illness and corticosteroid use, would recheck and evaluate clinical condition if indicated (3) Hemodynamic instability Assessment & Plan: Hemodynamic Instability: He is is off vasopressors (vasopressin, norepinephrine), indicating improved hemodynamic stability, initially contributing to renal hypoperfusion and further complicating his renal recovery. Vasopressor Management: Work with the critical care team to optimize vasopressor support, and IVF management, aiming to improve mean arterial pressure (MAP) and renal perfusion. Adjust vasopressor dosing as necessary based on hemodynamic monitoring and fluid status. (4) Infection Assessment & Plan: Infection and Sepsis Management: Continue current antibiotic regimen with Zosyn, ensuring appropriate coverage for potential intra-abdominal infections. Monitor for clinical improvement and adjust antibiotics based on culture results and sensitivity patterns. JASON MILLIGAN III DO February 14, 2025 08:52
[2025-02-14 08:54] LABS: ALANINE AMINOTRANSFERASE 113 U/L (12-78); ALBUMIN 1.6 G/DL (3.4-5.0); ALBUMIN/GLOBULIN RATIO 0.5 (1.1-1.5); ALKALINE PHOSPHATASE 310 IU/L (46-116); ANION GAP 9 (8-16); ASPARTATE AMINO TRANSFERASE 95 U/L (10-37); BILIRUBIN,TOTAL 1.8 MG/DL (0.1-1.0); BLOOD UREA NITROGEN 114 MG/DL (7-18); BUN/CREATININE RATIO 57.6 (10.0-20.0); CALCIUM 8.1 MG/DL (8.5-10.1); CHLORIDE 108 MMOL/L (99-107); CREATININE 1.98 MG/DL (0.60-1.10); GLUCOSE 121 MG/DL (70-104); POTASSIUM 3.5 MMOL/L (3.5-5.1); SODIUM 141 MMOL/L (135-145); TOTAL PROTEIN 5.1 G/DL (6.4-8.2); eCRCL 27 ML/MIN; eGFR 32 ML/MIN
--- NOTE | 2025-02-14 11:40 | PROGRESS NOTE- Residence ---
Progress Note - Resident Providers to CC Resident Creating Document: AXEL KING RES CC: JOHN CARDOSO MD ~ Central Line/PICC still needed: Yes Central Line/PICC Necessity: Prolonged IV access req Antibiotic Timeout Antibiotic Ordered?: Yes Subjective Patient has been evaluated at bedside. The patient remains on mechanical ventilation. FiO2 down to 30, started on LR at 50 cc/hour by Dr. Padilla, good urine output, recommended no need for CRRT, remains off the vasopressors Objective Vital Signs Date Time Temp Pulse Resp B/P (MAP) Pulse Ox O2 Delivery O2 Flow Rate FiO2 02/14/25 11:07 95 23 96 30 02/14/25 10:00 99.1 137/61 (86) Mechanical Ventilator 35.0 Result Diagram: 02/14/2579902/14/25799 General: Elderly male, intubated, and sedated Head: Normocephalic with an atraumatic Eyes: Pupils- 3mm, reacting to light, conjunctiva- anicteric Nose and throat: No polyps, septum- normal, no mucosal ulcers Neck: Supple, no lymphadenopathy, no carotid bruit Respiratory: No use of accessory muscles of respiration, Bilateral good air entry Cardiac: S1-S2 heard, rythm regular, no gallop/murmur Abdomen: Distended, distension coming down, left side TANA drain present, dressing done over the abdomen, bowel sounds not heard Extremities: no clubbing, no pedal edema, no deformities, peripheral pulses- 2+ Skin: finger tips-bluish Neuro: not elicited as he is sedated Coagulation Studies Laboratory Tests Test 02/09/25 00:15 Prothrombin Time 12.5 SECONDS (9.0-12.0) H INR International Normalized Ratio 1.2 INR Coagulation Comments Assessment Assessment 84-year-old male patient came to the hospital with chief complaint of abdominal pain. Plan Plan Acute hypoxemic respiratory failure: Non-anion gap metabolic acidosis: The patient underwent intubation on 02/10/2025 due to increased oxygen demand. Patient is currently under mechanical ventilation. /12/03 AB.35/33.5/76.2/18.1, PF 246 CXR: bilateral lower lobe atelectasis/pleural effusions, pulmonary congestion, with mild b/l plefs daily SAT/SBT Sepsis Septic shock likely secondary to small-bowel obstruction with peritonitis: POA: S/p exploratory laparotomy, lysis of adhesions, appendectomy, polypoid resection, closure of enterotomy: POD: 1 The patient came to the hospital with chief complaint of abdominal pain, throbbing type, 8/10 in intensity radiation from epigastrium to lower abdomen. On physical exam distended abdomen is evidenced, high-pitched bowel sounds are noticed in the right side of the abdomen. Absent bowel sounds in the left side. Tenderness in the left lower abdomen. Abdominal x-ray: Normal positioning of the enteric tube. CT abdominal scan: Findings consistent with small-bowel obstruction as described above. Scattered colonic diverticula without adjacent inflammatory changes to suggest diverticulitis. Bilateral renal cysts. Smaller right renal lesion is indeterminate, possibly a complex cyst, although solid lesion not excluded. Further evaluation with renal mass protocol CT or MRI could be obtained. Moderate bilateral fat containing inguinal hernias. Cholelithiasis. Intra-abdominal pressure-14, intra-abdominal hypertension. Management as per Dr. Hernandez. Currently off of pressors. On Zosyn IV t.i.d. Added micafungin by Infectious Disease specialist Dr. Almaraz. On 02/10. Continue stress dose steroids fludrocortisone 100 mg q.8h IV and hydrocortisone 0.1 mg daily. Started on 02/10. -there is no bowel function yet, Dr. 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 Alcohol withdrawal protocol in place. Folic acid 1 mg IV daily. Thiamine 200 mg IV t.i.d. Currently under sedation. Hypertension Septic shock resolved Current blood pressure 137/61 Currently of pressors. Hyperglycemia: Diabetes mellitus: Glucose levels of 187. Hemoglobin A1c 6.1. On insulin drip Hypothyroidism: TSH 0.32. Discontinued levothyroxine. Dyslipidemia: Triglycerides 168, cholesterol 188, LDL 105, HDL 56 Nutrition -trickle feeds on hold in view of high gastric residuals of 500 to 800 cc -started on erythromycin 100 mg b.i.d. via NG tube Code status: Full code DVT prophylaxis: Heparin Analgesia/sedation: Midazolam/fentanyl Line/tube: Right IJ central line, right radial artery line, OGT, ETT, Bowen GI prophylaxis: Protonix IV. Nutrition: TPN PT: Yes Prognosis: Guarded/very very poor. Very high mortality risk. Disposition: We will assume care after the patient is downgraded from ICU. 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 Axel King IM resident Date of Service: February 14, 2025 Billing Provider: JOHN CARDOSO MD Common Visit Codes: [id number] INP/OBS CARE(HIGH) AXEL KING, RES February 14, 2025 11:40 JOHN CARDOSO MD February 15, 2025 14:31
[2025-02-14] MEDS: metoprolol tartrate 50mg tablet NG SCH (12:56)
[2025-02-14] MEDS: hydrALAZINE 20mg/ml inj. IV SCH (12:56)
--- NOTE | 2025-02-14 13:05 | PROGRESS NOTE ---
Progress Note ID Providers to CC ~ Progress Note Progress Note: intubated/vss/abd-distended/labs noted a/p 1. s/p carter bowel resection-no bowel function/needs ct abd RAFAL ALFARO MD February 14, 2025 13:05
[2025-02-14] MEDS ORDERED: propofol 1000mg/100ml bottle 100 ML IV SCH (13:30)
[2025-02-14] MEDS: propofol 1000mg/100ml bottle 100 ML IV SCH (13:54)
[2025-02-14] MEDS: COMMUNICATION ORDER 1 EA MISC MC ONE (13:54)
[2025-02-14] MEDS: labetalol 20mg/4ml (5mg/ml) syringe IV PRN (13:58)
[2025-02-14 14:42] LABS: BILIRUBIN,URINE NEGATIVE (Neg); CLARITY,URINE CLEAR (Clear); COLOR,URINE YELLOW (Yellow); GLUCOSE, URINE NEGATIVE (Neg); KETONES,URINE NEGATIVE (Neg); LEUKOCYTE ESTERASE ,URINE NEGATIVE (Neg); NITRITES, URINE NEGATIVE (Neg); OCCULT BLOOD,URINE NEGATIVE (Neg); PROTEIN,URINE 30 mg/dl (Neg); UROBILINOGEN,URINE 0.2 E.U/dL (0.2-1.0)
[2025-02-14 14:45] LABS: UA COLLECTION TYPE FOLEY CATH
[2025-02-14 14:46] LABS: BACTERIA,URINE NONE SEEN /HPF (Neg); MUCUS STRANDS NONE SEEN /LPF (Neg); RBC,URINE NONE SEEN /HPF (0-2); SQUAMOUS EPITHELIAL CELL,UR FEW /LPF (FEW); WBC,URINE 0-4 /HPF (0-4)
[2025-02-14 14:55] LABS: SODIUM,URINE RANDOM < 15 MEQ/L; TOTAL PROTEIN,URINE RANDOM 84.1 MG/DL
[2025-02-14 14:57] LABS: OSMOLALITY UA 470 MOSM/K (50-1400)
--- NOTE | 2025-02-14 15:09 | PROGRESS NOTE ---
Subjective Subjective Patient has been evaluated at bedside.The patient remains on mechanical ventilation.FiO2 still at 30%. Reason for visit: Pulmonary/critical care follow-up Reviewed: Care Plan, H&P, Labs, Medications, Radiology Daily Progress Note Exam Vitals Vital Signs Date Time Temp Pulse Resp B/P (MAP) Pulse Ox O2 Delivery O2 Flow Rate FiO2 02/14/25 13:54 187/73 02/14/25 13:40 32 02/14/25 12:56 97 02/14/25 12:52 95 30 02/14/25 10:00 99.1 Mechanical Ventilator 35.0 Result Diagram: 02/14/25 0802/14/25 08 Exam General: Elderly male, intubated, and sedated Head: Normocephalic with an atraumatic Eyes: Pupils- 3mm, reacting to light, conjunctiva- anicteric Nose and throat: No polyps, septum- normal, no mucosal ulcers Neck: Supple, no lymphadenopathy, no carotid bruit Respiratory: No use of accessory muscles of respiration, Bilateral good air entry Cardiac: S1-S2 heard, rythm regular, no gallop/murmur Abdomen: Distended, distension coming down, left side TANA drain present, dressing done over the abdomen, bowel sounds not heard Extremities: no clubbing, no pedal edema, no deformities, peripheral pulses- 2+ Skin: Unremarkable Neuro: not elicited as he is sedated Results Coagulation Studies Laboratory Tests Test 02/09/25 00:15 Prothrombin Time 12.5 SECONDS (9.0-12.0) H INR International Normalized Ratio 1.2 INR Coagulation Comments VTE VTE Risk Score VTE Risk Score Reference Ranges: Score 0-1 = Low Risk (Aggressive mobilization; early ambulation; no VTE prophylaxis required) Score 2: Moderate Risk (Intermittent/Pneumatic Compression Device OR Lovenox/Heparin/Coumadin) Score 3-4: High Risk (Intermittent/Pneumatic Compression Device AND Lovenox/Heparin/Coumadin) Score > or = 5: Highest Risk (Intermittent/Pneumatic Compression Device AND Lovenox/Heparin/Coumadin) Assessment/Plan Assessment 84-year-old male patient came to the hospital with chief complaint of abdominal pain. Plan Acute hypoxemic respiratory failure: Non-anion gap metabolic acidosis: The patient underwent intubation on 02/10/2025 due to increased oxygen demand. Patient is currently under mechanical ventilation. 5 AB.35/33.5/76.2/18.1, PF 246 CXR: bilateral lower lobe atelectasis/pleural effusions, pulmonary congestion, with mild b/l plefs Breathing labored with SAT/SBT. Sedation resumed with fentanyl and propofol. Sepsis Septic shock likely secondary to small-bowel obstruction with peritonitis: POA: S/p exploratory laparotomy, lysis of adhesions, appendectomy, polypoid resection, closure of enterotomy: POD: 6 and POD 5 (Went to OR twice) The patient came to the hospital with chief complaint of abdominal pain, throbbing type, 8/10 in intensity radiation from epigastrium to lower abdomen. On physical exam distended abdomen is evidenced, high-pitched bowel sounds are noticed in the right side of the abdomen. Absent bowel sounds in the left side. Tenderness in the left lower abdomen. Abdominal x-ray: Normal positioning of the enteric tube. CT abdominal scan: Findings consistent with small-bowel obstruction as described above. Scattered colonic diverticula without adjacent inflammatory changes to suggest diverticulitis. Bilateral renal cysts. Smaller right renal lesion is indeterminate, possibly a complex cyst, although solid lesion not excluded. Further evaluation with renal mass protocol CT or MRI could be obtained. Moderate bilateral fat containing inguinal hernias. Cholelithiasis. Intra-abdominal pressure-14, intra-abdominal hypertension. Management as per Dr. Hernandez. Currently off of pressors. On Zosyn IV t.i.d. Added micafungin by Infectious Disease specialist Dr. Almaraz. On 02/10. Discontinue fludrocortisone and hydrocortisone. -there is no bowel function yet, Dr. 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 Alcohol withdrawal protocol in place. Folic acid 1 mg IV daily. Thiamine 200 mg IV t.i.d. Currently under sedation. Hypertension Septic shock resolved Current blood pressure 194/79 Hyperglycemia: Diabetes mellitus: Glucose levels of 124. Hemoglobin A1c 6.1. On insulin drip Hypothyroidism: TSH 0.32. Discontinued levothyroxine. Dyslipidemia: Triglycerides 168, cholesterol 188, LDL 105, HDL 56 Nutrition -trickle feeds on hold in view of high gastric residuals of 500 to 800 cc. Cat scan is pending. -started on erythromycin 100 mg b.i.d. via NG tube Code status: Full code DVT prophylaxis: Heparin Analgesia/sedation: Midazolam/fentanyl to change to propofol and fentanyl today Line/tube: Right IJ central line, right radial artery line, OGT, ETT, Bowen GI prophylaxis: Protonix IV. Nutrition: TPN PT: Yes Prognosis: Guarded Disposition: We will assume care after the patient is downgraded from ICU. Critical care time 35 minutes. Expected Outcome/Goals Expected Outcomes/Goals: Tolerance to TPN, tolerance to TF, wean TPN and advance TF, wt maintenance, bowel regularity, surgical wound healing EUGENIO BROWN MD February 14, 2025 15:09
[2025-02-14 15:38] LABS: UA EOSINOPHILS NO EOS /HPF
[2025-02-14] MEDS: tPA-cathflo 2mg/2ml IV flush 2 MG/2 ML VIAL IVF ONE (16:16)
[2025-02-14] MEDS: diatr meglu/diatrizoate 30ml oral sol.-(3 dose) bottle PO SCH (20:05)
[2025-02-14] MEDS: erythromycin ethylsuccinate 200mg/5mL ORAL suspension NG SCH (20:07)
[2025-02-15] VITALS (36 sets, daily range): BP systolic 100–155; BP diastolic 41–63; PULSE 73–99; RESP 18–27; O2SAT 94–100
[2025-02-15] MEDS ORDERED: hydrALAZINE 20mg/ml inj. IV PRN (01:55)
[2025-02-15 02:32] LABS: BASOPHILS # (AUTO) 0.1 X10'3 (0-0.2); BASOPHILS % (AUTO) 0.3 % (0-1); EOSINOPHILS % (AUTO) 0 % (0-6); HEMATOCRIT 28.9 % (42.0-52.0); HEMOGLOBIN 9.4 g/dl (14.0-17.9); LYMPHOCYTES # (AUTO) 0.4 X10'3 (1.1-4.8); LYMPHOCYTES % (AUTO) 1.5 % (21-51); MEAN CORPUSCULAR HEMOGLOBIN 32.1 PG (27.0-31.0); MEAN CORPUSCULAR HGB CONC 32.6 g/dL (33.0-36.5); MEAN CORPUSCULAR VOLUME 98.5 FL (78-98); MEAN PLATELET VOLUME 11.1 FL (7.4-10.4); MONOCYTES # (AUTO) 1.1 X10'3 (0-0.9); MONOCYTES % (AUTO) 4.3 % (2-12); NEUTROPHILS # (AUTO) 23.2 X10'3 (1.8-7.7); NEUTROPHILS % (AUTO) 93.9 % (42-75); PLATELET COUNT 73 X10'3 (140-440); RED BLOOD COUNT 2.93 X10'6 (4.70-6.10); RED CELL DISTRIBUTION WIDTH 14.3 % (11.5-14.5); WHITE BLOOD COUNT 24.7 X10'3 (4.5-11.0)
[2025-02-15 02:45] LABS: ALANINE AMINOTRANSFERASE 114 U/L (12-78); ALBUMIN 1.3 G/DL (3.4-5.0); ALBUMIN/GLOBULIN RATIO 0.4 (1.1-1.5); ALKALINE PHOSPHATASE 184 IU/L (46-116); ANION GAP 10 (8-16); ASPARTATE AMINO TRANSFERASE 63 U/L (10-37); BILIRUBIN,TOTAL 1.8 MG/DL (0.1-1.0); BLOOD UREA NITROGEN 138 MG/DL (7-18); BUN/CREATININE RATIO 59.2 (10.0-20.0); CALCIUM 8.1 MG/DL (8.5-10.1); CHLORIDE 106 MMOL/L (99-107); CREATININE 2.33 MG/DL (0.60-1.10); GLUCOSE 193 MG/DL (70-104); MAGNESIUM 2.3 MG/DL (1.5-2.4); PHOSPHORUS 4.7 MG/DL (2.3-4.5); POTASSIUM 3.6 MMOL/L (3.5-5.1); PREALBUMIN 17.1 MG/DL (19-36); SODIUM 138 MMOL/L (135-145); TOTAL CARBON DIOXIDE 21.9 MMOL/L (24-32); TOTAL PROTEIN 4.5 G/DL (6.4-8.2); TRIGLYCERIDES 268 MG/DL (20-135); eCRCL 23 ML/MIN; eGFR 27 ML/MIN
[2025-02-15 03:41] LABS: PLATELET ESTIMATE DECREASED; TOTAL CELLS COUNTED 100
[2025-02-15 04:44] LABS: ABG BASE EXCESS -9.3 mmol/L (-2.0-3.0); ABG HCO3 17.1 mmol/L (21.0-28.0); ABG PCO2 (T) 38.3 mmHg (35.0-48.0); ABG PH (T) 7.265 (7.350-7.450); ABG PO2 (T) 86.5 mmHg (83.0-108.0); ALLEN'S TEST POSITIVE; FCOHb 0.3 % (0.5-1.5); FMetHb 0.3 % (0.0-1.5); FO2Hb 95.4 % (94.0-98.0); MODE ac prvc; PATIENT TEMPERATURE 36.6; RESPIRATORY RATE 18 b/min; TIDAL VOLUME 450 mL; TOTAL HEMOGLOBIN 10.3 G/dl (13.5-17.5)
--- NOTE | 2025-02-15 06:20 | RADIOLOGY REPORT ---
EXAM: XR Chest, 1 View CLINICAL INDICATION: ET Tube PLacement TECHNIQUE: Frontal view of the chest. COMPARISON: DI CHEST,SINGLE VIEW on DOS: 02/14/25, DI CHEST,SINGLE VIEW on DOS: 02/13/25, DI CHEST,SING LE VIEW on DOS: 02/12/25, DI CHEST,SINGLE VIEW on DOS: 02/11/25, DI CHEST,SINGLE VIEW on DOS: 02/10/25 FINDINGS: LUNGS AND PLEURAL SPACES: Bilateral pleural effusions. No consolidation. No pneumothorax. HEART: Unremarkable. No cardiomegaly. MEDIASTINUM: Unremarkable. Normal mediastinal contour. BONES/JOINTS: Unremarkable. No acute fracture. TUBES, LINES AND DEVICES: The endotracheal tube (ETT) is in satisfactory position. Right internal jugular central venous catheter tip in the superior vena cava. Enteric tube tip in the stomach. OTHER FINDINGS: . . IMPRESSION: Bilateral pleural effusions.
--- NOTE | 2025-02-15 11:20 | PROGRESS NOTE ---
Progress Note Dictate Providers to CC ~ Subjective Subjective: Oxygenation stable. No fever. He is sedated with propofol and fentanyl. He remains on TPN. No pressors. Decent urine output. Objective Objective: GENERAL: Elderly male, currently sedated and intubated. HEENT: Nasogastric tube in place. NECK: Right internal jugular central venous catheter in place. LUNGS: Clear to auscultation anteriorly. HEART: Regular rate and rhythm. ABDOMEN: With a large bandage at the midline. He does have one drain in place. EXTREMITIES: Some edema. He has a right radial arterial line. Lab Results: 02/15/2520402/15/25204 Lab comments: 02/14 PCT 38.7 and dropping Problem\Assessment\Plan Additional Plan 1. Septic shock due to peritonitis. 2. SBO s/p lysis of adhesions. He did develop some enterotomies with contamination of the peritoneal cavity. He has undergone small bowel resection with reanastomosis. 3. Acute respiratory failure. 4. Acute kidney injury. It is unclear if he has chronic kidney disease. Cr at 2.3 5. Leukocytosis - currently high at 25,000, but PCT has been dropping 6. Thrombocytopenia - likely due to sepsis Continue Zosyn Continue micafungin Follow PCT - recheck tomorrow AM CT pending per Dr. Hernandez TPN for nutritional support ELIZABET RODRIGUEZ MD February 15, 2025 11:19
--- NOTE | 2025-02-15 12:24 | RADIOLOGY REPORT ---
EXAM: CT CT HEAD HISTORY: ALOC off sedation COMPARISON: None TECHNIQUE: Axial images of the head were obtained and reformatted in coronal and sagittal planes. All CT scans at this medical facility are performed using dose modulation techniques as appropriate t o a performed exam including the following: Automated exposure control was utilized; adjustment of th e MA and/or KV according to patient size; and use of iterative reconstruction technique. CT Dose: CTDI volume is 71 mGy. Dose-length product is 1307 mGy*cm FINDINGS: There is no evidence of acute intracranial hemorrhage, mass, mass effect midline shift. There is no h ydrocephalus or extra-axial fluid collection. Gifford-white matter differentiation is maintained. The visualized paranasal sinuses and mastoid air cells are clear. The calvarium is intact. IMPRESSION: 1. No acute intracranial process. HS:Y
--- NOTE | 2025-02-15 12:33 | RADIOLOGY REPORT ---
Indication: leak Technique: CT axial images of the abdomen and pelvis are obtained without contrast. Coronal and sagit delmy reformats were obtained. Radiation Dose Information: CTDI volume is 29 mGy. Dose-length product is 2346 mGy*cm Comparison: CT CT ABDOMEN PELVIS on DOS: 02/08/25 FINDINGS: There is limited interpretation of the abdomen and pelvis without administration of intravenous contr ast. The lung bases demonstrate moderate bilateral pleural effusions. Bibasilar consolidation. Adrenal glands unremarkable in shape. Splenic calcifications consistent with remote granulomatous di sease. Pancreas is unremarkable in shape. Cholelithiasis. Pericholecystic edema. Liver unremarkable in shape. Kidneys demonstrate no hydronephrosis, nephrolithiasis. There are bilateral renal cysts including le ft renal cyst measuring 8.6 cm, right renal cyst measuring 7.4 cm. Nasogastric tube projecting towards the stomach. Gastric wall thickening. Moderate gastric distentio n. Abnormal dilatation of small-bowel loops with air-fluid levels up to 6.6 cm. Contrast within the d istended small bowel loops. Narrowing of the small bowel at the surgical anastomosis in the left mid abdomen. Left abdominal approach surgical drainage catheter terminating in the right anterior mid abd omen. Colonic diverticular disease. Postsurgical changes near the proximal transverse colon. Moderate volum e stool in the colon. Appendix appears to be removed. There is mesenteric edema and free fluid. Loculated peripelvic collection measuring 9.8 x 5.0 cm. Mid mesenteric possible developing loculated collection measuring 5.2 x 3.1 cm. Abdominal aortic atherosclerotic disease. Aortic graft. Bladder partially distended by Bowen catheter. Soft tissue edema / anasarca. Bilateral fat containing inguinal hernias. Large bilateral hydroceles and scrotal edema. Soft tissue edema /anasarca. Moderate bilateral sacroiliac degenerative joint disease. Moderate thoracolumbar degenerative disc disease. IMPRESSION: 1. Abnormal dilatation of small-bowel loops up to 6.6 cm, concerning for small bowel obstruction. Ot her considerations including postoperative ileus. Recommend surgical consultation for further manage ment. 2. Surgical drainage catheter as described. 3. Mid mesenteric fluid collection measuring 5.2 x 3.1 cm and pelvic fluid collection measuring 9.8 x 5.0 cm which could represent developing postoperative abscesses. 4. Cholelithiasis and pericholecystic stranding / edema. Correlate for cholecystitis. Recommend HID A scan. 5. Bibasilar pulmonary airspace consolidation. Moderate bilateral pleural effusions. 6. Soft tissue edema/ anasarca. 7. Scrotal edema and hydroceles. 8. Other findings as described.
--- NOTE | 2025-02-15 14:43 | PROGRESS NOTE ---
Progress Note Dictate Providers to CC ~ Central Line/PICC still needed: Yes Central Line/PICC Necessity: Prolonged IV access req Bowen Indications Met/Not Met: F/C Indications Met Antibiotic Ordered?: Yes Subjective Subjective This is a very fine gentleman that I have known from 2011, who hd worked in [employer] in [employer] for 3 years, that has been following with me in the renal clinic with a baseline creatinine of 1.4 to begin with 4, that peaked at 2.1 and came down slowly to 1.3 in recent times, when I saw him in the office. He has had AAA repair. He does have Dm but does not have Dm nephropathy or retinopathy. He has had previous urological intervention long time ago by . 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 Now he has adhesions and has had SARAH with continued ileus. with the above, the renal function has had a collateral damage with ongoing azotemia. He is heading towards dialysis at this rate, to prevent any GI bleeds from the continued spike in BUN. will talk to him or family and consider doing it starting tomorrow if there is no change or there is further worsening. Objective Vitals Vital Signs Date Time Temp Pulse Resp B/P (MAP) Pulse Ox O2 Delivery O2 Flow Rate FiO2 02/15/25 17:29 85 19 97 30 02/15/25 17:18 127/55 02/15/25 17:00 98.6 Mechanical Ventilator 02/14/25 18:00 30.0 Lab Results: 02/15/25 0205 02/15/25 0205 Objective patient remains on jyoti ventilator. slowly getting edematous CVS: S1S2+ RS: Bilateral scattered rales Abd: -BS, distended Ext: edema ++ Coagulation Studies Laboratory Tests Test 02/09/25 00:15 Prothrombin Time 12.5 SECONDS (9.0-12.0) H INR International Normalized Ratio 1.2 INR Coagulation Comments Advance Care Planning Advanced Care plannin - 30 Minutes Problem\Assessment\Plan Problems/Diagnosis: (1) REMEDIOS (acute kidney injury) Assessment & Plan: Acute Kidney Injury (REMEDIOS): He demonstrates REMEDIOS, likely multifactorial due to perioperative factors, hypovolemia, sepsis, previous pressor need. Now with the sepsis and increasing abdominal girth with the possible abscess in the pelvis, his kidney function is getting shot. I understand his is also going through major health issues. Code status needs to be established. I have known this gentleman for years. He is a gentle soul that is practical and loved his life. Elevated lactic acid (2.3 mmol/L) initially, likely tissue hypoperfusion, acidemia resolved Fluid Management: Carefully balance IV fluid administration to optimize renal perfusion while avoiding fluid overload, especially given the use of vasopressors. Heading towards dialysis, possibly from tomorrow to aovid Gi bleeds. However, would like to discuss with family about what his wishes would be, moving forward with such a complicated scenario, and advancing age. Renal Monitoring and Management: Follow KDIGO guidelines for REMEDIOS management. Monitor renal function (BUN, creatinine) and electrolytes closely. Evaluate for potential initiation of renal replacement therapy (FLOUR MIXER HELPER) daily, start if there is a trend of worsening renal function, refractory metabolic acidosis, hyperkalemia, or fluid overload. (2) Hemodynamic instability Assessment & Plan: Hemodynamic Instability: He is is off vasopressors (vasopressin, norepinephrine), indicating improved hemodynamic stability, initially contributing to renal hypoperfusion and further complicating his renal recovery. Vasopressor Management: Work with the critical care team to optimize vasopressor support, and IVF management, aiming to improve mean arterial pressure (MAP) and renal perfusion. Adjust vasopressor dosing as necessary based on hemodynamic monitoring and fluid status. (3) Infection Assessment & Plan: Infection and Sepsis Management: Continue current antibiotic regimen with Zosyn, ensuring appropriate coverage for potential intra-abdominal infections. Monitor for clinical improvement and adjust antibiotics based on culture results and sensitivity patterns. ileus noted. getting US of hgte gall bladder today. Possible neeed for IR guided abscess drainage tomorrow. VINH LAROSE MD February 15, 2025 14:43
--- NOTE | 2025-02-15 16:05 | PROGRESS NOTE ---
Subjective Subjective Patient has been evaluated at bedside.The patient remains on mechanical ventilation. Reason for visit: Pulmonary/critical care follow-up Reviewed: Care Plan, H&P, Labs, Medications, Radiology Daily Progress Note Exam Vitals Vital Signs Date Time Temp Pulse Resp B/P (MAP) Pulse Ox O2 Delivery O2 Flow Rate FiO2 02/15/25 15:07 20 02/15/25 15:00 30 02/15/25 15:00 98.2 83 145/63 (90) 97 Mechanical Ventilator 02/14/25 18:00 30.0 Result Diagram: 02/15/2520402/15/25204 Exam General: Elderly male, intubated, and sedated Head: Normocephalic with an atraumatic Eyes: Pupils- 3mm, reacting to light, conjunctiva- anicteric Nose and throat: No polyps, septum- normal, no mucosal ulcers Neck: Supple, no lymphadenopathy, no carotid bruit Respiratory: No use of accessory muscles of respiration, Bilateral good air entry Cardiac: S1-S2 heard, rythm regular, no gallop/murmur Abdomen: Distended, distension coming down, left side TANA drain present, dressing done over the abdomen, bowel sounds not heard Extremities: no clubbing, no pedal edema, no deformities, peripheral pulses- 2+ Skin: Unremarkable Neuro: not elicited as he is sedated Results Coagulation Studies Laboratory Tests Test 02/09/25 00:15 Prothrombin Time 12.5 SECONDS (9.0-12.0) H INR International Normalized Ratio 1.2 INR Coagulation Comments VTE VTE Risk Score VTE Risk Score Reference Ranges: Score 0-1 = Low Risk (Aggressive mobilization; early ambulation; no VTE prophylaxis required) Score 2: Moderate Risk (Intermittent/Pneumatic Compression Device OR Lovenox/Heparin/Coumadin) Score 3-4: High Risk (Intermittent/Pneumatic Compression Device AND Lovenox/Heparin/Coumadin) Score > or = 5: Highest Risk (Intermittent/Pneumatic Compression Device AND Lovenox/Heparin/Coumadin) Assessment/Plan Assessment 84-year-old male patient came to the hospital with chief complaint of abdominal pain. Plan Acute hypoxemic respiratory failure: Non-anion gap metabolic acidosis: The patient underwent intubation on 02/10/2025 due to increased oxygen demand. Patient is currently on mechanical ventilation. AB.265/38.3/86.5/17.1/9.3/90 5.4%/30% FiO2 CXR: bilateral lower lobe atelectasis/pleural effusions, pulmonary congestion, with mild b/l plefs daily SAT/SBT Sepsis Septic shock likely secondary to small-bowel obstruction with peritonitis: POA: S/p exploratory laparotomy, lysis of adhesions, appendectomy, polypoid resection, closure of enterotomy: POD: 6 and 7 The patient came to the hospital with chief complaint of abdominal pain, throbbing type, 8/10 in intensity radiation from epigastrium to lower abdomen. On physical exam distended abdomen is evidenced, high-pitched bowel sounds are noticed in the right side of the abdomen. Absent bowel sounds in the left side. Tenderness in the left lower abdomen. Abdominal x-ray: Normal positioning of the enteric tube. CT abdominal scan: Findings consistent with small-bowel obstruction as described above. Scattered colonic diverticula without adjacent inflammatory changes to suggest diverticulitis. Bilateral renal cysts. Smaller right renal lesion is indeterminate, possibly a complex cyst, although solid lesion not excluded. Further evaluation with renal mass protocol CT or MRI could be obtained. Moderate bilateral fat containing inguinal hernias. Cholelithiasis. Intra-abdominal pressure-14, intra-abdominal hypertension. Management as per Dr. Hernandez. Currently off of pressors. On Zosyn IV t.i.d. Added micafungin by Infectious Disease specialist Dr. Almaraz. On 02/10. Stress dose steroids fludrocortisone 100 mg q.8h IV and hydrocortisone 0.1 mg daily were discontinued. -there is no bowel function yet, Dr. Hernandez ordered CT abdomen on 02/14 Acute kidney injury on CKD likely secondary to renal tubular stasis: Suspected ATN, oliguria: Baseline creatinine 1.5, Current creatinine is 2.33. 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 Alcohol use disorder: The patient admits drinking 1 oz of trisha with coke everyday for at least 45 years. Alcohol withdrawal protocol in place. Folic acid 1 mg IV daily. Thiamine 200 mg IV t.i.d. Currently under sedation. Hypertension Septic shock resolved Current blood pressure 145/63 Currently of pressors. Hyperglycemia: Diabetes mellitus: Glucose levels of 187. Hemoglobin A1c 6.1. Still on insulin drip Hypothyroidism: TSH 0.32. Discontinued levothyroxine. Dyslipidemia: Triglycerides 168, cholesterol 188, LDL 105, HDL 56 Nutrition -trickle feeds on hold in view of high gastric residuals of 500 to 800 cc -started on erythromycin 100 mg b.i.d. via NG tube Code status: Full code DVT prophylaxis: Heparin Analgesia/sedation: Midazolam/fentanyl Line/tube: Right IJ central line, right radial artery line, OGT, ETT, Bowen GI prophylaxis: Protonix IV. Nutrition: TPN PT: Yes Prognosis: Guarded/very very poor. Very high mortality risk. Disposition: Continue ICU care. Expected Outcome/Goals Expected Outcomes/Goals: Tolerance to TPN, tolerance to TF, wean TPN and advance TF, wt maintenance, bowel regularity, surgical wound healing EUGENIO BROWN MD February 15, 2025 16:05
--- NOTE | 2025-02-15 17:09 | RADIOLOGY REPORT ---
INDICATION: Cholestasis TECHNIQUE: Multiple real-time sonographic images of the abdomen were obtained. COMPARISON: CT abdomen from today FINDINGS: The liver is homogenous in echogenicity and measures 17.1 cm. No intrahepatic biliary duct al dilatation is noted. No hepatic masses masses were seen. The gallbladder wall measures 4 mm. There is cholelithiasis. The common duct measures 4 mm. Gallbla dder distention. The right kidney measures 10 cm. The right renal echogenicity, contour and cortical thickness are wi thin normal limits. The imaged portion of the pancreas is unremarkable. IMPRESSION: 1. Cholelithiasis and gallbladder distention with gallbladder wall thickening. Recommend HIDA scan t o exclude cholecystitis. 2. Echogenic liver which can be seen with hepatic steatosis, cirrhosis. 3. Hepatomegaly
--- NOTE | 2025-02-15 18:50 | PROGRESS NOTE- Residence ---
Progress Note - Resident Providers to CC Resident Creating Document: BRIGIDA PADILLA RES ~ Antibiotic Timeout Antibiotic Ordered?: Yes Subjective Patient has been evaluated at bedside.The patient remains on mechanical ventilation. Off of pressors. Objective Vital Signs Date Time Temp Pulse Resp B/P (MAP) Pulse Ox O2 Delivery O2 Flow Rate FiO2 02/15/25 18:00 98.8 87 23 141/61 (87) 99 Mechanical Ventilator 30 02/14/25 18:00 30.0 General: Elderly male, intubated, and sedated Head: Normocephalic with an atraumatic Eyes: Pupils- 3mm, reacting to light, conjunctiva- anicteric Nose and throat: No polyps, septum- normal, no mucosal ulcers Neck: Supple, no lymphadenopathy, no carotid bruit Respiratory: No use of accessory muscles of respiration, Bilateral good air entry Cardiac: S1-S2 heard, rythm regular, no gallop/murmur Abdomen: Distended, distension coming down, left side TANA drain present, dressing done over the abdomen, bowel sounds not heard Extremities: no clubbing, no pedal edema, no deformities, peripheral pulses- 2+ Skin: Unremarkable Neuro: not elicited as he is sedated Result Diagram: 02/15/25 0205 02/15/25 020 Coagulation Studies Laboratory Tests Test 02/09/25 00:15 Prothrombin Time 12.5 SECONDS (9.0-12.0) H INR International Normalized Ratio 1.2 INR Coagulation Comments Advance Care Planning Advanced Care plannin - 30 Minutes Assessment Assessment 84-year-old male patient came to the hospital with chief complaint of abdominal pain, found to have SBO, and peritonitis. S/P exploratory laparotomy and septic shock. Remained intubated and on mechanical ventilation. Plan Plan Acute hypoxemic respiratory failure: Non-anion gap metabolic acidosis: The patient underwent intubation on 02/10/2025 due to increased oxygen demand. Patient is currently on mechanical ventilation. /12/03 AB.265/38.3/86.5/17.1/9.3/90 5.4%/30% FiO2 CXR: bilateral lower lobe atelectasis/pleural effusions, pulmonary congestion, with mild bilateral pleural effusion On daily SAT/SBT Sepsis Septic shock likely secondary to small-bowel obstruction with peritonitis: POA: S/p exploratory laparotomy, lysis of adhesions, appendectomy, polypoid resection, closure of enterotomy: POD: 6 and [address] Hernandez. Currently off of pressors. On Zosyn IV t.i.d. Added micafungin by Infectious Disease specialist Dr. Almaraz. On 02/10. Stress dose steroids fludrocortisone 100 mg q.8h IV and hydrocortisone 0.1 mg daily were discontinued. Repeat CT abdomen/pelvis done on February 15, 2025: shows abnormal dilation of the small bowel loops, measuring up to 6.6 cm, which raises concern for persistent SBO vs postoperative ileus. There is a mild mesenteric fluid collection measuring 5.2 x 3.1 cm in a larger pelvic fluid collection measuring 9.8 x 5 cm which may indicate the development of a postoperative abscess. Acute kidney injury on CKD likely secondary to renal tubular stasis: Suspected ATN, oliguria: Baseline creatinine 1.5, Current creatinine is 2.33. 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 Alcohol use disorder: The patient admits drinking 1 oz of trisha with coke everyday for at least 45 years. Alcohol withdrawal protocol in place. Folic acid 1 mg IV daily. Thiamine 200 mg IV t.i.d. Currently under sedation. Hypertension Septic shock resolved Current blood pressure 145/63 Currently of pressors. Hyperglycemia: Diabetes mellitus: Glucose levels of 187. Hemoglobin A1c 6.1. Still on insulin drip Hypothyroidism: TSH 0.32. Discontinued levothyroxine. Dyslipidemia: Triglycerides 168, cholesterol 188, LDL 105, HDL 56 Nutrition -trickle feeds on hold in view of high gastric residuals of 500 to 800 cc -started on erythromycin 100 mg b.i.d. via NG tube Code status: Full code DVT prophylaxis: Heparin Analgesia/sedation: Midazolam/fentanyl Line/tube: Right IJ central line, right radial artery line, OGT, ETT, Bowen GI prophylaxis: Protonix IV. Nutrition: TPN PT: Yes Prognosis: Guarded/very very poor. Very high mortality risk. Disposition: Continue ICU care. Brigida Padilla Internal Medicine Resident Date of Service: February 15, 2025 Billing Provider: JOHN CARDOSO MD, SHAMS, RES February 15, 2025 18:50
--- NOTE | 2025-02-15 21:39 | PROGRESS NOTE ---
Progress Note ID Providers to CC ~ Progress Note Progress Note: sedated/vss/abd-distended/labs noted/ct reviewed a/p 1. s/p small bowel resection-probable ileus/trial of RAFAL Trent MD February 15, 2025 21:39
[2025-02-16] VITALS (34 sets, daily range): BP systolic 90–167; BP diastolic 44–65; PULSE 80–100; RESP 18–28; O2SAT 97–100
[2025-02-16] MEDS: metoclopramide 5 mg/ml inj IV SCH (02:01)
[2025-02-16 02:33] LABS: BASOPHILS % (AUTO) 0.1 % (0-1); EOSINOPHILS # (AUTO) 0.1 X10'3 (0-0.9); EOSINOPHILS % (AUTO) 0.2 % (0-6); HEMATOCRIT 29.2 % (42.0-52.0); HEMOGLOBIN 9.6 g/dl (14.0-17.9); LYMPHOCYTES # (AUTO) 0.3 X10'3 (1.1-4.8); LYMPHOCYTES % (AUTO) 1.4 % (21-51); MEAN CORPUSCULAR HEMOGLOBIN 32.3 PG (27.0-31.0); MEAN CORPUSCULAR HGB CONC 32.9 g/dL (33.0-36.5); MEAN CORPUSCULAR VOLUME 98.1 FL (78-98); MEAN PLATELET VOLUME 10.9 FL (7.4-10.4); MONOCYTES # (AUTO) 0.8 X10'3 (0-0.9); MONOCYTES % (AUTO) 3.4 % (2-12); NEUTROPHILS # (AUTO) 22.9 X10'3 (1.8-7.7); NEUTROPHILS % (AUTO) 94.9 % (42-75); PLATELET COUNT 110 X10'3 (140-440); RED BLOOD COUNT 2.97 X10'6 (4.70-6.10); RED CELL DISTRIBUTION WIDTH 13.8 % (11.5-14.5); WHITE BLOOD COUNT 24.2 X10'3 (4.5-11.0)
[2025-02-16 02:42] LABS: ALANINE AMINOTRANSFERASE 120 U/L (12-78); ALBUMIN 1.3 G/DL (3.4-5.0); ALBUMIN/GLOBULIN RATIO 0.4 (1.1-1.5); ALKALINE PHOSPHATASE 191 IU/L (46-116); ANION GAP 11 (8-16); ASPARTATE AMINO TRANSFERASE 58 U/L (10-37); CALCIUM 8.1 MG/DL (8.5-10.1); CHLORIDE 105 MMOL/L (99-107); CREATININE 2.47 MG/DL (0.60-1.10); GLUCOSE 175 MG/DL (70-104); MAGNESIUM 2.2 MG/DL (1.5-2.4); PHOSPHORUS 3.5 MG/DL (2.3-4.5); POTASSIUM 3.4 MMOL/L (3.5-5.1); SODIUM 137 MMOL/L (135-145); TOTAL CARBON DIOXIDE 20.8 MMOL/L (24-32); TOTAL PROTEIN 4.7 G/DL (6.4-8.2); eCRCL 22 ML/MIN; eGFR 25 ML/MIN
[2025-02-16 03:19] LABS: ABG BASE EXCESS -8.9 mmol/L (-2.0-3.0); ABG HCO3 17.2 mmol/L (21.0-28.0); ABG OXYGEN SATURATION 96.8 % (94.0-98.0); ABG PCO2 (T) 38.1 mmHg (35.0-48.0); ABG PH (T) 7.273 (7.350-7.450); ABG PO2 (T) 92.6 mmHg (83.0-108.0); ALLEN'S TEST POSITIVE; FCOHb 0.6 % (0.5-1.5); FHHb 3.2 % (0.0-5.0); FMetHb 0.3 % (0.0-1.5); FO2Hb 95.9 % (94.0-98.0); PATIENT TEMPERATURE 37.3; RESPIRATORY RATE 18 b/min; TIDAL VOLUME 450 mL; TOTAL HEMOGLOBIN 10.2 G/dl (13.5-17.5)
[2025-02-16 03:19] LABS: PLATELET ESTIMATE DECREASED; TOTAL CELLS COUNTED 100
[2025-02-16 03:20] LABS: LARGE PLATELETS FEW
[2025-02-16 03:23] LABS: BLOOD UREA NITROGEN 139 MG/DL (7-18); BUN/CREATININE RATIO 56.3 (10.0-20.0)
--- NOTE | 2025-02-16 06:11 | RADIOLOGY REPORT ---
EXAM: XR Chest, 1 View CLINICAL INDICATION: ET Tube PLacement TECHNIQUE: Frontal view of the chest. COMPARISON: DI CHEST,SINGLE VIEW on DOS: 02/15/25, DI CHEST,SINGLE VIEW on DOS: 02/14/25, DI CHEST,SING LE VIEW on DOS: 02/13/25, DI CHEST,SINGLE VIEW on DOS: 02/12/25, DI CHEST,SINGLE VIEW on DOS: 02/11/25, XR Chest dated 02/15/2025 FINDINGS: LUNGS AND PLEURAL SPACES: Left basilar atelectasis or pneumonia. Left pleural effusion. No pneumo thorax. HEART: Unremarkable. No cardiomegaly. MEDIASTINUM: Unremarkable. Normal mediastinal contour. BONES/JOINTS: Unremarkable. No acute fracture. TUBES, LINES AND DEVICES: Stable tubes and lines. OTHER FINDINGS: . IMPRESSION: 1. Left basilar atelectasis or pneumonia. 2. Left pleural effusion.
[2025-02-16] MEDS: SINCALIDE IV ONE (07:50)
[2025-02-16] MEDS: NORMAL SALINE IV ONE (07:50)
--- NOTE | 2025-02-16 07:54 | PROGRESS NOTE ---
Progress Note Dictate Providers to CC ~ Subjective Subjective: Nursing states that he does have high residuals from nasogastric tube. He is on TPN with an insulin drip. Oxygenation stable. He remains sedated with propofol and fentanyl. Urine output marginal. Objective Objective: GENERAL: Elderly male, currently sedated and intubated. HEENT: Nasogastric tube in place. NECK: Right internal jugular central venous catheter in place. LUNGS: Clear to auscultation anteriorly. HEART: Regular rate and rhythm. ABDOMEN: With a large bandage at the midline. He does have one drain in place. EXTREMITIES: Some edema. He has a right radial arterial line. Lab Results: 02/16/2515702/16/25157 Lab comments: Procalcitonin 22.7 and dropping Radiology comments: CT abdomen/pelvis reviewed - Abnormal dilatation of small-bowel loops up to 6.6 cm, concerning for small bowel obstruction vs. postoperative ileus - Mid mesenteric fluid collection measuring 5.2 x 3.1 cm and pelvic fluid collection measuring 9.8 x 5.0 cm - Cholelithiasis and pericholecystic stranding / edema - Bibasilar pulmonary airspace consolidation. Moderate bilateral pleural effusions - Soft tissue edema/ anasarca Problem\Assessment\Plan Additional Plan 1. Septic shock due to peritonitis. 2. SBO s/p lysis of adhesions. He did develop some enterotomies with contamination of the peritoneal cavity. He has undergone small bowel resection with reanastomosis. CT with a few fluid collections as well as SBO versus postoperative ileus 3. Acute respiratory failure. 4. Acute kidney injury. It is unclear if he has chronic kidney disease. Cr at 2.5 5. Leukocytosis - currently high at 24,000, but PCT has been dropping 6. Thrombocytopenia - likely due to sepsis 7. Abnormal LFTs with abnormal GB on CT - r/o cholecystitis Continue Zosyn Continue micafungin Consider alternative gram-negative coverage and resistant gram-positive coverage Follow PCT Check HIDA TPN for nutritional support D/W nursing ELIZABET RODRIGUEZ MD February 16, 2025 07:54
[2025-02-16 09:10] LABS: AMYLASE 454 U/L (25-115)
[2025-02-16 09:18] LABS: LIPASE > 375 U/L (16-77)
--- NOTE | 2025-02-16 11:20 | PROGRESS NOTE- Residence ---
Progress Note - Resident Providers to CC Resident Creating Document: AXEL KING RES CC: LANG LAROSE MD ~ Central Line/PICC still needed: Yes Central Line/PICC Necessity: Prolonged IV access req Bowen-Non Protocol Bowen Indications Met/Not Met: F/C Indications Met Antibiotic Timeout Antibiotic Ordered?: No Subjective remains intubated, FiO2 down to 30, the vasopressors, on insulin drip and sedation with propofol/fentanyl. CT chest done on 02/15 showed mesenteric fluid collection, represent developing postoperative abscess, small bowel loop dilatation of 6.6 cm concerning for SBO or postop ileus, cholelithiasis with pericholecystic stranding or edema concerning for cholecystitis, moderate bilateral pleural effusions Planned to go to HIDA scan today Objective Vital Signs Date Time Temp Pulse Resp B/P (MAP) Pulse Ox O2 Delivery O2 Flow Rate FiO2 02/16/25 11:09 130/53 02/16/25 11:00 22 30 02/16/25 10:58 99.0 100 100 Mechanical Ventilator 02/14/25 18:00 30.0 Result Diagram: 02/16/25 0158 02/16/25 0158 General: Elderly male, intubated, and sedated Head: Normocephalic with an atraumatic Eyes: Pupils- 3mm, reacting to light, conjunctiva- anicteric Nose and throat: No polyps, septum- normal, no mucosal ulcers Neck: Supple, no lymphadenopathy, no carotid bruit Respiratory: No use of accessory muscles of respiration, Bilateral good air entry Cardiac: S1-S2 heard, rythm regular, no gallop/murmur Abdomen: Distended, left side TANA drain present, dressing done over the abdomen, bowel sounds not heard Extremities: no clubbing, no pedal edema, no deformities, peripheral pulses- 2+ Skin: finger tips-bluish Neuro: not elicited as he is sedated Coagulation Studies Laboratory Tests Test 02/09/25 00:15 Prothrombin Time 12.5 SECONDS (9.0-12.0) H INR International Normalized Ratio 1.2 INR Coagulation Comments Advance Care Planning Advanced Care plannin - 30 Minutes Assessment Assessment 84-year-old male patient came to the hospital with chief complaint of abdominal pain, found to have SBO, and peritonitis. S/P exploratory laparotomy and septic shock. Remained intubated and on mechanical ventilation. Past medical history includes AAA repair, status post exploratory laparotomy few years ago Plan Plan REMEDIOS -likely ATN secondary to sepsis, hypovolemia, -BUN/creatinine 139/2.47, cr 2.47>> 2.33>> 1.98 -Urine output of 1.7 L with net positive of 1.5 L -blood pressure remains of the vasopressors, with CVP of 12 -likely progressing towards hemodialysis. Spoke with his Ms. Harris, and if needed she is okay for hemodialysis - Heading towards dialysis with a temporary catheter starting tomorrow - may either need CRRT or regular HD, based on post op BP tonight. Heading to OR later today for possible cholecystectomy and cleaning of the abscess that he has developed. Mild metabolic acidosis Mild hypokalemia -monitor for now Sepsis secondary to peritonitis Septic shock secondary to above Small-bowel obstructions s/p exploratory laparotomy, lysis of adhesions, closure of enterotomy on 02/08 Possible intra-abdominal abscesses -continue Zosyn -treatment per lead network engineer Thank you for this interesting consult. We will continue to follow the patient along with you Axel King MD IM resident Attending NOte: the patient is well known to me from office, for more than 12 years, with baseline creatinine of 1.3 to 1.4 for a very long time. This is clearlyl an acute setback due to multiple factors. He has an advanced age with multiple issues going on. However, jyoti wants everything to be done to keep him going. Will most likely need HD vs CRRT tomorrow, with a new temp catheter. Requesting ICU attending to place one to facilitate this. The nephrology resident today spoke to the over phone and she is very clear about this. Lang Larose MD Date of Service: February 16, 2025 Billing Provider: LANG LAROSE MD, HARIVARSHA, RES February 16, 2025 11:20 LANG LAROSE MD February 16, 2025 14:30
--- NOTE | 2025-02-16 13:44 | RADIOLOGY REPORT ---
CLINICAL INFORMATION: Abnormal liver function tests. Abnormal gallbladder on CT and ultrasound. TECHNIQUE: 5 mCi of Choletec were administered intravenously. Images of the upper abdomen were obta ined at 5 minute intervals up to a total time of 60 minutes. Gallbladder ejection fraction was ordere d, but not performed due to the nonvisualized gallbladder. COMPARISON: Ultrasound dated 02/15/[address] dated 02/15/2025 FINDINGS: The gallbladder is not visualized on images obtained up to 60 minutes. There is excretion of radiopharmaceutical activity into the common bile duct and small bowel. IMPRESSION: Nonvisualized gallbladder at 60 minutes. Given the findings on ultrasound and CT, suspicious for acut e cholecystitis in the appropriate clinical setting. Correlate with clinical findings.
[2025-02-16] MEDS: erythromycin ethylsuccinate 200mg/5mL ORAL suspension NG SCH (13:47)
--- NOTE | 2025-02-16 14:19 | PROGRESS NOTE ---
Progress Note ID Providers to CC ~ Progress Note Progress Note: sedated/vss/abd-distended/labs noted/hida pending a/p 1. s/p small bowel resection-wbc remained elevated/will f/u RAFAL Mcgregor MD February 16, 2025 14:19
[2025-02-16 17:51] LABS: INR 1.1 INR; PRE OP PARTIAL THROMB. TIME 26 SECONDS (22-32); PROTHROMBIN TIME 10.9 SECONDS (9.0-12.0)
--- NOTE | 2025-02-16 19:18 | PROGRESS NOTE- Residence ---
Progress Note - Resident Providers to CC Resident Creating Document: RENATE PADILLA RES ~ Antibiotic Timeout Antibiotic Ordered?: Yes Subjective remains intubated, FiO2 down to 30, the vasopressors, on insulin drip and sedation with propofol/fentanyl. Objective Vital Signs Date Time Temp Pulse Resp B/P (MAP) Pulse Ox O2 Delivery O2 Flow Rate FiO2 02/16/25 17:44 99.1 90 25 138/56 (83) 97 Mechanical Ventilator 30 02/14/25 18:00 30.0 General: Elderly male, intubated, and sedated Head: Normocephalic with an atraumatic Eyes: Pupils- 3mm, reacting to light, conjunctiva- anicteric Nose and throat: No polyps, septum- normal, no mucosal ulcers Neck: Supple, no lymphadenopathy, no carotid bruit Respiratory: No use of accessory muscles of respiration, Bilateral good air entry Cardiac: S1-S2 heard, rythm regular, no gallop/murmur Abdomen: Distended, distension coming down, left side TANA drain present, dressing done over the abdomen, bowel sounds not heard Extremities: no clubbing, no pedal edema, no deformities, peripheral pulses- 2+ Skin: Unremarkable Neuro: not elicited as he is sedated Result Diagram: 02/16/25 0158 02/16/25 0158 Coagulation Studies Laboratory Tests Test 02/16/25 17:28 Prothrombin Time 10.9 SECONDS (9.0-12.0) INR International Normalized Ratio 1.1 INR Activated Partial Thromboplast Time 26 SECONDS (22-32) Coagulation Comments Advance Care Planning Advanced Care plannin - 30 Minutes Assessment Assessment 84-year-old male patient came to the hospital with chief complaint of abdominal pain, found to have SBO, and peritonitis. S/P exploratory laparotomy and septic shock. Remained intubated and on mechanical ventilation. Past medical history includes AAA repair, status post exploratory laparotomy few years ago Plan Plan Acute hypoxemic respiratory failure: Non-anion gap metabolic acidosis: The patient underwent intubation on 02/10/2025 due to increased oxygen demand. Patient is currently on mechanical ventilation. AB.273/38.1/92.6/17.2 with FiO2 of 30% Continue management per eyeglass assembler Sepsis Septic shock likely secondary to small-bowel obstruction with peritonitis: POA: S/p exploratory laparotomy, lysis of adhesions, appendectomy, polypoid resection, closure of enterotomy: POD: 6 and [address] Hernandez. Currently off of pressors. On Zosyn IV t.i.d. Added micafungin by Infectious Disease specialist Dr. Almaraz. On 02/10. Stress dose steroids fludrocortisone 100 mg q.8h IV and hydrocortisone 0.1 mg daily were discontinued. Repeat CT abdomen/pelvis done on February 15, 2025: shows abnormal dilation of the small bowel loops, measuring up to 6.6 cm, which raises concern for persistent SBO vs postoperative ileus. There is a mild mesenteric fluid collection measuring 5.2 x 3.1 cm in a larger pelvic fluid collection measuring 9.8 x 5 cm which may indicate the development of a postoperative abscess. Acute kidney injury on CKD likely secondary to renal tubular stasis: Suspected ATN, oliguria: Mild metabolic acidosis/mild hypokalemia -likely ATN secondary to sepsis, hypovolemia, -BUN/creatinine 139/2.47, cr 2.47>> 2.33>> 1.98 -Urine output of 1.7 L with net positive of 1.5 L -blood pressure remains of the vasopressors, with CVP of 12 -likely progressing towards hemodialysis. Spoke with his Ms. Harris, and if needed she is okay for hemodialysis - Heading towards dialysis with a temporary catheter starting tomorrow - may either need CRRT or regular HD, based on post op BP tonight. Heading to OR later today for possible cholecystectomy and cleaning of the abscess that he has developed. Nephrology planning to start CRRT/HD tomorrow We will continue to follow along ICU, and nephrology Renate Padilla Internal Medicine Resident D Date of Service: February 16, 2025 Billing Provider: JOHN CARDOSO MD, SHAMS, RES February 16, 2025 19:18
--- NOTE | 2025-02-16 20:44 | PROGRESS NOTE- Residence ---
Progress Note - Resident Providers to CC Resident Creating Document: EVER LIMA SEGUNDOREEMA ~ Antibiotic Timeout Antibiotic Ordered?: Yes Subjective Patient seen and examined at the bedside today. Continues to be intubated and on mechanical ventilation with a FiO2 of 30%. He is sedated with propofol and fentanyl. Objective Vital Signs Date Time Temp Pulse Resp B/P (MAP) Pulse Ox O2 Delivery O2 Flow Rate FiO2 02/16/25 20:27 81 23 97 30 02/16/25 17:44 99.1 138/56 (83) Mechanical Ventilator 02/14/25 18:00 30.0 Result Diagram: 02/16/25 0158 02/16/25 0158 General: Sedated with propofol and fentanyl HEENT: Conjunctiva pink, Sclera clear, Mucus Membranes moist. Neck: Supple without masses and tenderness. Resp: Unlabored. Lungs clear to auscultation bilaterally. On mechanical ventilation with 30% FiO2. Heart: Regular Rate and rhythm, normal S1 and S2 without murmur, rub or gallop. Abdomen: Distended. TANA drain present on the left side. No bowel sounds heard. Extremities: No cyanosis,clubbing or edema. Skin: Warm and Dry. Neurology: Sedated. Coagulation Studies Laboratory Tests Test 02/16/25 17:28 Prothrombin Time 10.9 SECONDS (9.0-12.0) INR International Normalized Ratio 1.1 INR Activated Partial Thromboplast Time 26 SECONDS (22-32) Coagulation Comments Assessment Assessment 84-year-old male is admitted in the ICU for evaluation and management of acute hypoxemic respiratory failure, small-bowel obstruction status post exploratory laparotomy, septic shock secondary to peritonitis. The patient continues to be intubated and requiring mechanical ventilation. Plan Plan Septic shock secondary to acute peritonitis The patient has been weaned off pressors. His vitals has been stable without pressors. Infectious Disease specialist Dr. Almaraz has been consulted. Appreciate recommendations. Continue IV Zosyn and IV micafungin as per the ID specialist recommendations. Stress dose steroids fludrocortisone 100 mg q.8h IV and hydrocortisone 0.1 mg daily were discontinued. Small-bowel obstruction Status post exploratory laparotomy, small-bowel resection and lysis of adhesions on 02/08 No bowel function yet. Increased erythromycin 200 mg b.i.d. to t.i.d.. Patient underwent HIDA scan today which showed nonvisualization of gallbladder at 60 minutes. There is suspicion for acute cholecystitis as per the HIDA scan report. Surgical management as per the surgeon-Dr. Hernandez. The patient is planned to get transferred to [facility] for a cholecystostomy tube placement by the IR. Acute hypoxemic respiratory failure Non-anion gap metabolic acidosis The patient continues to be intubated and on mechanical ventilation. AC/PRVC 18/450/30/5 We will try to wean the patient off mechanical ventilation. Sedated with propofol and fentanyl. REMEDIOS on CKD The patient's renal function is progressively worsening. Most likely secondary to acute tubular necrosis. Nephrology has been consulted. The plan to start the patient on hemodialysis from tomorrow. Placed Lexa catheter today. CODE STATUS: Full code DVT prophylaxis: SCDs GI prophylaxis: Protonix Diet: Tube feeds Ever Lima MD Internal Medicine Resident, PGY-2 Date of Service: February 16, 2025 Billing Provider: EUGENIO BROWN MD, SURYA PRATIK, RES February 16, 2025 20:44
--- NOTE | 2025-02-16 21:10 | PROCEDURE NOTE- Residance ---
Procedure Note Providers to CC ~ Planned Procedure Lexa catheter Indications REMEDIOS secondary to ATN. Most likely the patient might get dialysis tomorrow. Informed Consent Consent was taken from the patient's over phone. Description A time-out was completed verifying correct patient, procedure, site, positioning, and special equipment if applicable. The patient was placed in a dependent position appropriate for central line placement based on the vein to be cannulated. The patients right neck was prepped and draped in sterile fashion. A dual-lumen Lexa catheter was introduced into the the right internal jugular using the Seldinger technique and under ultrasound guidance. The catheter was threaded smoothly over the guide wire and appropriate blood return was obtained. Each lumen of the catheter was evacuated of air and flushed with sterile saline. The catheter was then sutured in place to the skin and a sterile dressing applied. Perfusion to the extremity distal to the point of catheter insertion was checked and found to be adequate. Dr. Garcia was present for the entire procedure. Estimated Blood Loss Minimal Complication None Date of Service: February 16, 2025 Billing Provider: EUGENIO BROWN MD, SURYA PRATIK, RES February 16, 2025 21:10
--- NOTE | 2025-02-16 21:12 | RADIOLOGY REPORT ---
Clinical History line placement Comparison CHEST on 02/16/2025, 1 images. Technique: A single AP/PA chest radiograph was provided for review. Without Contrast FABRICIO, VALERI, [id number] FINDINGS: Lungs: Hypoexpanded lungs without pneumothorax. There are small bilateral pleural effusions. No foc al consolidation or mass is seen. Heart: Enlarged. Mediastinum: Median sternotomy wires and surgical clips overlie the cardiac silhouette. Vasculature: Pulmonary vascular congestion. Tubes/lines: Endotracheal and nasogastric tubes are adequate. Right jugular dialysis catheter termi nates in the superior vena cava. Left jugular central line terminates in the innominate vein. Osseous structures: No evidence for acute fracture. IMPRESSION: Low lung volumes. Cardiomegaly. Pulmonary vascular congestion. Bilateral pleural effusions. 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 Tubes and lines as above noted. This report was electronically signed by Ismael Garnica MD on 02/16/2025 9:08:59 PM.
--- NOTE | 2025-02-16 21:15 | PROCEDURE NOTE- Residance ---
Procedure Note Providers to CC ~ Planned Procedure Left internal jugular central line placement Indications Need for pressors and IV antibiotics Septic shock Informed Consent Informed consent was obtained from the patient's over call. All the procedure details, risks and benefits were explained. The patient's agreed for the procedure. Description A time-out was completed verifying correct patient, procedure, site, positioning, and special equipment if applicable. The patient was placed in a dependent position appropriate for central line placement based on the vein to be cannulated. The patients left neck was prepped and draped in sterile fashion. . A quadruple lumen catheter was introduced into the the left internal jugular using the Seldinger technique <and under ultrasound guidance. The catheter was threaded smoothly over the guide wire and appropriate blood return was obtained. Each lumen of the catheter was evacuated of air and flushed with sterile saline. The catheter was then sutured in place to the skin and a sterile dressing applied. Perfusion to the extremity distal to the point of catheter insertion was checked and found to be adequate. Dr. Garcia was present for the entire procedure. Estimated Blood Loss Minimal Complication None Date of Service: February 16, 2025 Billing Provider: EUGENIO BROWN MD, SURYA PRATIK, RES February 16, 2025 21:15
== END 2025-02-17 00:10 | disposition short-term general hospital (02) | DRG 853 ==
LOC: ER 12:47 → ED HOLD 16:06 → PACU 18:17 → CICU 2S 21:42
PROVIDERS: ADMIT Family Medicine; ATTEND Family Medicine
PROC: 0DTJ0ZZ Resection of Appendix, Open Approach (ICD-10-PCS; 2025-02-08)
PROC: 0DB80ZZ Excision of Small Intestine, Open Approach (ICD-10-PCS; 2025-02-08)
PROC: 02HV33Z Insertion of Infusion Device into Superior Vena Cava, Percutaneous Approach (ICD-10-PCS; 2025-02-08)
PROC: B548ZZA Ultrasonography of Superior Vena Cava, Guidance (ICD-10-PCS; 2025-02-08)
PROC: 0D9670Z Drainage of Stomach with Drainage Device, Via Natural or Artificial Opening (ICD-10-PCS; 2025-02-08)
PROC: 0DN80ZZ Release Small Intestine, Open Approach (ICD-10-PCS; principal; 2025-02-08 17:53)
PROC: 0BH17EZ Insertion of Endotracheal Airway into Trachea, Via Natural or Artificial Opening (ICD-10-PCS; 2025-02-10)
PROC: 5A1955Z Respiratory Ventilation, Greater than 96 Consecutive Hours (ICD-10-PCS; 2025-02-10)
PROC: 05HY33Z Insertion of Infusion Device into Upper Vein, Percutaneous Approach (ICD-10-PCS; 2025-02-16)
PROC: B54NZZA Ultrasonography of Left Upper Extremity Veins, Guidance (ICD-10-PCS; 2025-02-16)
PROC: CF1YYZZ Planar Nuclear Medicine Imaging of Hepatobiliary System and Pancreas using Other Radionuclide (ICD-10-PCS; 2025-02-16)
DX: A41.9 Sepsis, unspecified organism (principal); J96.01 Acute respiratory failure with hypoxia; K65.9 Peritonitis, unspecified; R65.21 Severe sepsis with septic shock; N17.0 Acute kidney failure with tubular necrosis; K56.50 Intestinal adhesions [bands], unspecified as to partial versus complete obstruction; E87.1 Hypo-osmolality and hyponatremia; K56.52 Intestinal adhesions [bands] with complete obstruction; D61.818 Other pancytopenia; I25.10 Atherosclerotic heart disease of native coronary artery without angina pectoris; E03.9 Hypothyroidism, unspecified; E11.22 Type 2 diabetes mellitus with diabetic chronic kidney disease; I12.9 Hypertensive chronic kidney disease with stage 1 through stage 4 chronic kidney disease, or unspecified chronic kidney disease; N18.9 Chronic kidney disease, unspecified; D53.9 Nutritional anemia, unspecified; E11.65 Type 2 diabetes mellitus with hyperglycemia; E78.00 Pure hypercholesterolemia, unspecified; Z88.8 Allergy status to other drugs, medicaments and biological substances; Z88.5 Allergy status to narcotic agent; Z88.1 Allergy status to other antibiotic agents; Z79.82 Long term (current) use of aspirin; Z79.899 Other long term (current) drug therapy; Z87.891 Personal history of nicotine dependence; Z95.1 Presence of aortocoronary bypass graft
CPT/HCPCS: 36410; 36415; 36600; 70450; 71045; 74018; 74176; 76700; 76937; 78226; 80053; 80061; 80320; 81001; 82150; 82570; 82800; 82803; 82810; 82948; 83036; 83605; 83690; 83735; 83930; 83935; 84100; 84132; 84134; 84145; 84156; 84300; 84443; 84478; 84540; 85007; 85018; 85025; 85610; 85730; 86885; 86900; 86901; 87040; 87070; 87081; 87207; 88304; 88307; 93005; 93306; 94002; 94003; 94760; 94799; 96374; 99285; A4314; A4333; A4615; A4618; A4620; A5200; A6213; A6253; A6258; A6407; A6449; A7000; A9537; A9900; C1751; C1752; C1758; G0378; J0131; J0360; J1100; J1171; J1630; J1644; J1720; J1815; J2003; J2248; J2405; J2470; J2543; J2704; J2765; J2997; J3010; J3360; J3370; J3411; J3475; J3480; J3490; J7030; J7040; J7060; J7070; J7120; P9045; P9047; Q9963

== ENCOUNTER 2025-04-13 09:40 | Outpatient (CLI) | payer MEDICARE ==
[~2025-04-13 09:40] MED LIST changes: -ASPI-1265 PO; -ATEN-169 PO; +ATEN50TA8 PO; -CYCL-394 PO; +CYCL-920 PO; -FLAX100010 PO; +LEVO25TA7 PO; +LISI2.5T14 PO; +METF-1203 PO; -MULT-785 PO; -OMEG1CAP54 PO; -OMEP-84 PO; +PANT40TA54 PO; +PRAV40TA3 PO; -PRAV40TA65 PO; -TAMS-55 PO; -TRAM-528 PO; -rocuronium 10mg/ml inj IV ONE
[2025-04-13] MEDS ORDERED: iohexol 300mg/ml 100ml inj. ONE (11:36)
--- NOTE | 2025-04-13 18:19 | RADIOLOGY REPORT ---
EXAM: CT CT ABDOMEN PELVIS W/ IV ORAL CONTRAST HISTORY: FECAL IMPACTION TECHNIQUE: Volumetric multidetector CT images of the abdomen and pelvis were obtained after the admin istration of intravenous contrast. All CT scans at this facility use dose modulation, iterative recon struction, and/or weight based dosing when appropriate to reduce radiation dose to as low as reasonab ly achievable. COMPARISON: CT CT ABDOMEN PELVIS W/ ORAL CONTRAST on DOS: 02/15/25 FINDINGS: [LOWER CHEST]: Small to medium bilateral pleural effusions with relaxation atelectasis. Calcific gran uloma in the right lower lobe. Coronary artery calcifications. [LIVER]: Normal hepatic size without suspicious focal lesion. [GALLBLADDER AND BILIARY TREE]: Layering cholelithiasis. Gallbladder distention. [SPLEEN]: Splenic calcifications [PANCREAS]: Unremarkable. [ADRENAL GLANDS]: Unremarkable [KIDNEYS]: No hydronephrosis. No nephroureterolithiasis. 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 No imaging follow-up required. [BLADDER]: Circumferential bladder wall thickening, which may be seen in the setting of acute versus chronic cystitis and correlate with urinalysis. [REPRODUCTIVE ORGANS]: Unremarkable. [BOWEL/MESENTERY]: Stomach is decompressed limiting its evaluation. Mild stool burden. Trace edema/in flammatory stranding along the distal sigmoid colon above the rectosigmoid junction with the associat ed diverticula. Correlate for diverticulitis. Stool burden in the rectum. [ASCITES]: Trace ascites [LYMPHADENOPATHY]: No pathologically enlarged lymph nodes by CT size criteria [VASCULATURE]: Postsurgical changes with bilateral long segment iliac artery anastomosis which appear s to be patent. Diffuse vascular calcifications without definitive hemodynamically significant arteri al stenosis or occlusion [ABDOMINAL WALL]: Small fat containing bilateral inguinal hernias [MUSCULOSKELETAL]: No acute fracture or aggressive focal osseous lesion. Multifocal degenerative singh ge of the visualized spine. IMPRESSION: 1. Trace edema/inflammatory stranding along the distal sigmoid colon above the rectosigmoid junction with the associated diverticula. Correlate for diverticulitis. 2. [id number] stool burden within the colon, most conspicuous in the rectum. Correlate for cons tipation.
== END 2025-04-13 23:59 | disposition home or self-care (01) ==
LOC: RAD 09:40
PROVIDERS: ATTEND Internal Medicine Infectious Disease
DX: J90 Pleural effusion, not elsewhere classified (principal); N28.1 Cyst of kidney, acquired; K59.00 Constipation, unspecified; K40.90 Unilateral inguinal hernia, without obstruction or gangrene, not specified as recurrent; I25.10 Atherosclerotic heart disease of native coronary artery without angina pectoris; K80.20 Calculus of gallbladder without cholecystitis without obstruction; K82.8 Other specified diseases of gallbladder; M47.814 Spondylosis without myelopathy or radiculopathy, thoracic region
CPT/HCPCS: 74177; Q9967